=== PATIENT | male | born 1945 | race Caucasian/White ===

== ENCOUNTER → 2017-04-23 | Outpatient (CLI) | payer OTHER ==
[~2017-04-23] MED LIST: AZIT250T; CLX20; IBUP-1428; LISI-725; LOVA20TA4; PRLSR20; REVIEWED
--- NOTE | 2017-04-23 12:19 | DIAGNOSTIC IMAGING REPORT ---
L WRIST MIN 3 VIEWS ROUTINE CLINICAL HISTORY: JOINT PAIN pain COMPARISON: None. DISCUSSION: Moderate to rather significant degenerative change first to lesser extent second carpometacarpal joints. Normal bone mineralization. All remaining intercarpal regions are unremarkable. Soft tissue vascular clips are present in the distal forearm. There is no evidence for soft tissue swelling. IMPRESSION: Moderate to significant degenerative change of the first and to lesser extent second and third carpometacarpal joints. The above report was generated using voice recognition software. It may contain grammatical, syntax or spelling errors. Electronically signed by: Yogi Dubon M.D. 04/23/2017 12:17 PM Dictated Date/Time: 04/23/2017 12:16 PM
--- NOTE | 2017-04-23 12:20 | DIAGNOSTIC IMAGING REPORT ---
RIGHT HAND 3 VIEWS CLINICAL HISTORY: Right hand pain. FINDINGS: 3 views the right hand are obtained. No prior studies are available for comparison at the time of dictation. The skeletal structures are well mineralized for age. No fracture is seen. There is degenerative narrowing at the radiocarpal articulation. Mild osteoarthritic change is present the first carpometacarpal and metacarpophalangeal joints. Osteoarthritic change is also present involving the interphalangeal joints, distal greater than proximal. 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 Mild soft tissue swelling is present in the second finger. There is atherosclerotic calcification of the regional arteries. IMPRESSION: 1. No acute bony abnormality is identified in the right hand. 2. Arthritic change as above. Electronically signed by: Ascencion Lord M.D. 04/23/2017 12:19 PM Dictated Date/Time: 04/23/2017 12:18 PM
--- NOTE | 2017-04-23 12:20 | DIAGNOSTIC IMAGING REPORT ---
R WRIST MIN 3 VIEWS ROUTINE CLINICAL HISTORY: JOINT PAIN pain COMPARISON: None. DISCUSSION: Mild degenerative change first and to lesser extent second carpometacarpal joints. All remaining osseous structures are unremarkable. Soft tissue vascular calcifications are present. There is no evidence for soft tissue swelling. IMPRESSION: Moderate degenerative change first and to a lesser extent second carpometacarpal joint. Otherwise negative study. The above report was generated using voice recognition software. It may contain grammatical, syntax or spelling errors. Electronically signed by: Yogi Dubon M.D. 04/23/2017 12:19 PM Dictated Date/Time: 04/23/2017 12:18 PM
--- NOTE | 2017-04-23 12:23 | DIAGNOSTIC IMAGING REPORT ---
LEFT HAND 3 VIEWS CLINICAL HISTORY: Left hand pain. FINDINGS: 3 views the left hand are obtained. No prior studies are available for comparison at the time of dictation. The skeletal structures are well mineralized for age. No fracture is seen. There is degenerative narrowing at the radiocarpal articulation. Mild osteoarthritic change is present the first carpometacarpal and metacarpophalangeal joints. Osteoarthritic change is also present involving the interphalangeal joints, distal greater than proximal. Erosive osteoarthritis is noted in the second through fourth distal interphalangeal joints. Mild spurring seen from the second and third metacarpal heads. Mild soft tissue swelling is present in the second through fourth fingers. Surgical clips are noted adjacent to the distal radius. IMPRESSION: 1. No acute bony abnormality is identified in the left hand. 2. Arthritic change as above. Electronically signed by: Ascencion Lord M.D. 04/23/2017 12:21 PM Dictated Date/Time: 04/23/2017 12:19 PM
== END | disposition home or self-care (01) ==
LOC: C.RAD1850 12:00
PROVIDERS: ATTEND Family Medicine
DX: M25.50 Pain in unspecified joint (principal)

== ENCOUNTER → 2017-05-12 | Outpatient (CLI) | payer OTHER ==
--- NOTE | 2017-05-12 13:16 | DIAGNOSTIC IMAGING REPORT ---
CT LUNG SCREENING, LOW DOSE WITH COMPUTER-AIDED DETECTION (CAD) CLINICAL HISTORY: Smoking history. COMPARISON STUDY: No previous studies for comparison. CT DOSE: 75.95 mGycm TECHNIQUE: Low-dose helical CT was acquired without intravenous contrast from lung apices to bases and reconstructed at 2.5 mm every 2 mm. CAD was utilized for this study. A dose lowering technique was utilized adhering to the principles of ALARA. FINDINGS: The central airways are patent. No pleural effusions. No pneumothorax. Mild emphysema. Mild peripheral fibrotic change within the lung apices. Linear density within the right lung apex favors scarring. A 2 mm subpleural nodule within the left upper lobe on image 45. Focal nodular thickening within the left major fissure on image 79. This is of doubtful clinical significance. No suspicious pulmonary nodules. Poststernotomy changes. Old, healed left-sided rib fractures. No mediastinal or hilar lymphadenopathy. The heart is normal in size. The visualized liver and spleen are unremarkable. Normal caliber thoracic aorta. Nodule 1 Category: 2 Nodule 1 Status: Baseline Nodule 1 Description: Solid Nodule 1 Lesion ID: 1 Nodule 1 Slice Number: [id number] Nodule 1 Volume (mm3): 5 Nodule 1 Major [place] mm: 2.3 Nodule 1 Minor [place] mm: 2.0 IMPRESSION: 1. A 2 mm nodule within the left upper lobe. Please refer to the recommendations below for follow-up. CAD FINDINGS: Overall Lung RADS Category: 2 Lung RADS Management Recommendation: Continue annual lung cancer screening. Lung RADS Follow Up Date: 2018-05-12 Lung RADS Nodule ID: 1 Electronically signed by: Waylon Rodriguez M.D. 05/12/2017 1:15 PM Dictated Date/Time: 05/12/2017 1:08 PM
== END | disposition home or self-care (01) ==
LOC: C.CTS 12:28
PROVIDERS: ATTEND Family Medicine
DX: R91.8 Other nonspecific abnormal finding of lung field (principal); Z87.891 Personal history of nicotine dependence

== ENCOUNTER 2020-11-22 16:12 | Observation (INO) ==
--- NOTE | 2020-11-22 17:36 | Emergency Department Note ---
Impression & Plan Pneumonia due to 2019 novel coronavirus, Pleural effusion, Hypoxia ED Provider Note NAME: JENNIFER ROYAL AGE: 75 SEX: M : 1945 ARRIVES VIA: Walk-In INFORMANT: Patient, ED PROVIDER(S): Leroy Manley DO CHIEF COMPLAINT: Shortness of breath HPI: The patient is a 75-year-old male who presented to emergency room for an evaluation of shortness of breath. The patient describes cough and difficulty breathing. He states he had the symptoms for a few weeks. He does have a history of COPD. He was seen by his primary care physician and then sent to the emergency department for further evaluation and possible Covid testing. The patient has no fever. He denies having any lower extremity swelling or pain. He states that he has been compliant with all of his outpatient medication regimen. He did not receive a Covid vaccination. The patient states that he denies having any nausea or dizziness. He has had no syncope. The patient states his symptoms are mild to moderate at rest but worsen with exertion. ROS: See above HPI for pertinent positives & negatives. A total of 10 systems reviewed and were otherwise negative. PAST MEDICAL HISTORY: See Below PAST SURGICAL HISTORY: See Below FAMILY HISTORY: See Below SOCIAL HISTORY: See Below HOME MEDICATIONS: See Below ALLERGIES: See Below VITALS: See Below PHYSICAL EXAMINATION: GENERAL: Patient is awake alert in no acute distress patient is resting comfortably and showing no signs of anxiety EYES: The conjunctivae are clear. The pupils are round and reactive. EARS, NOSE, MOUTH AND THROAT: The nose is without any evidence of any deformity. Mucous membranes are moist. Tongue is midline. NECK: The neck is nontender and supple. RESPIRATORY: Diminished breath sounds are noted in the left lung field. There is no tachypnea or conversational dyspnea. CARDIOVASCULAR: Ectopy was noted to auscultation. No definite murmur was noted. GASTROINTESTINAL: The abdomen is soft. Abdomen is nontender. MUSCULOSKELETAL/EXTREMITIES: There is no evidence of gross deformity full range of motion is noted in the hips and shoulders. SKIN: There is no obvious evidence of any rash. There are no petechiae, pallor or cyanosis noted. NEUROLOGIC: Patient is awake alert and oriented x3. MEDICAL DECISION MAKING: The patient is a 75-year-old male who presented to the emergency department for an evaluation of difficulty breathing. The patient's had cough and difficulty breathing. Symptoms appear to have worsened over the course the last few days. The patient was found to have borderline hypoxia upon arrival. He was certainly having difficulty breathing with any exertion. I discussed the patient's laboratory and radiographic studies with him. He did have an elevated creatinine as well as an abnormal chest x-ray. His Covid swab was positive. I discussed his case with the on-call [facility] group. They have agreed to evaluate the patient in the emergency department for further management and disposition. Triage Nursing notes reviewed. Prior medical records reviewed Vital Signs: reviewed and remarkable for hypoxia Differential diagnosis: Reactive airway disease, pneumonia, pneumothorax, COPD, CHF, infections, cardiac ischemia, pulmonary embolism, musculoskeletal, gastrointestinal, as well as other pathologies. ER treatment provided: See below Diagnostics interpreted by me: ECG: EKG was obtained in the emergency department. My interpretation is sinus rhythm at 75 bpm. PVCs were noted. There was no acute ST segment abnormalities. This was compared to a tracing from May 13, 2020. The ectopy is new otherwise no specific changes were noted. Cardiac Monitoring: An order was placed for continuous cardiac monitoring. The monitor shows a rate of 78 bpm with sinus rhythm. Laboratory studies: As stated above and show below. Imaging studies: See below Consultation(s): I discussed this case with Dr. Block. He was on-call for the [facility] group. He will evaluate the patient in the emergency department for further management and disposition. Past Med/Surg History Medical History CAD in [place] artery History of hypertension PAD (peripheral artery disease) Surgical History History of coronary artery bypass graft Social History Smoking Status: Former smoker Cigarettes Per Day: 60; Preferred Language: Nigerian Feels Safe at Home: Yes Allergies Allergies Allergy/AdvReac Type Severity Reaction Status Date / Time Penicillins Allergy Severe PER PT Verified 11/22/20 17:56 ENDED UP IN HOSPITAL Home Meds Home Medications Medication Instructions Recorded Confirmed amlodipine 10 mg PO DAILY 11/22/20 11/22/20 aspirin 81 mg PO DAILY 11/22/20 11/22/20 atorvastatin 20 mg PO HS 11/22/20 11/22/20 cetirizine 10 mg PO DAILY 11/22/20 11/22/20 citalopram 10 mg PO DAILY 11/22/20 11/22/20 clopidogrel 75 mg PO DAILY 11/22/20 11/22/20 doxazosin 1 mg PO DAILY 11/22/20 11/22/20 doxycycline hyclate 100 mg PO BID 11/22/20 11/22/20 furosemide 20 mg PO DAILY 11/22/20 11/22/20 isosorbide mononitrate 30 mg PO DAILY 11/22/20 11/22/20 lisinopril 10 mg PO DAILY 11/22/20 11/22/20 omeprazole 20 mg PO DAILY 11/22/20 11/22/20 tamsulosin 0.4 mg PO DAILY 11/22/20 11/22/20 Results & Data (ED) Vital Signs Vital Signs - 24 hr 11/22/20 16:22 11/22/20 17:20 Temperature 36.4 C L 37.2 C Temperature Source Temporal Artery Scan Oral Pulse Rate 75 71 Pulse Rate [Apical] 79 Pulse Rhythm Regular Pulse Rhythm [Apical] Regular Pulse Strength [Apical] Normal Respiratory Rate 20 22 Respiratory Effort / Characteristics Non-Labored Spontaneous Respiratory Depth Normal Respiratory Pattern Regular Blood Pressure 132/61 Blood Pressure [Right Arm] 133/66 Blood Pressure Mean 84 Blood Pressure Mean [Right Arm] 88 Blood Pressure Position [Right Arm] Sitting Pulse Oximetry 90 93 Oxygen Delivery Method Room Air Room Air Sepsis Recent Fever Within 48 Hours No Sepsis New/Unexplained Change in Mental Status N/A Sepsis Action Taken by Nursing No Action Required Home Medications Current Medication List: was personally reviewed by me Laboratory Data Attestation: I reviewed the patient's lab results. Result diagrams: 11/22/20 17:35 11/22/20 17:35 Lab Results 11/22/20 11/22/20 11/22/20 Range/Units 17:35 17:35 17:35 WBC 3.17 L (4.8-10.8) K/uL RBC 4.37 L (4.7-6.1) M/uL Hgb 13.3 L (14.0-18.0) g/dL Hct 38.1 L (42-52) % MCV 87.2 (80-100) fL MCH 30.4 (25-34) pg MCHC 34.9 (32-36) g/dL RDW Std Deviation 45.5 (36.4-46.3) fL RDW Coeff of Shahab 14.2 (11.5-14.5) % Plt Count 123 L (130-400) K/uL MPV 11.8 H (7.4-10.4) fL Immature Gran % (Auto) 0.6 % Neut % (Auto) 59.4 % Lymph % (Auto) 20.2 % [place] % (Auto) 19.2 % Eos % (Auto) 0.3 % Baso % (Auto) 0.3 % Neut # (Auto) 1.88 (1.4-6.5) K/uL Lymph # (Auto) 0.64 L (1.2-3.4) K/uL [place] # (Auto) 0.61 H (0.11-0.59) K/uL Eos # (Auto) 0.01 (0-0.5) K/uL Baso # (Auto) 0.01 (0-0.2) K/uL Immature Gran # (Auto) 0.02 (0.00-0.02) K/uL Giant Platelets 1+ D-Dimer 1370 H* (0-500) ug/L FEU Sodium 135 L (136-145) mmol/L Potassium 4.1 (3.5-5.1) mmol/L Chloride 108 H (98-107) mmol/L Carbon Dioxide 17 L (21-32) mmol/L Anion Gap 10.0 (3-11) BUN 58 H (7-18) mg/dl Creatinine 2.20 H (0.6-1.4) mg/dl Est Cr Clr Drug Dosing 32.9 ml/min Est GFR ( Amer) 32.7 ml/min Est GFR (Non-Af Amer) 28.3 ml/min BUN/Creatinine Ratio 26.4 H (10-20) Glucose 104 H (70-99) mg/dl Calcium 8.1 L (8.5-10.1) mg/dl Magnesium 2.1 (1.8-2.4) mg/dl Total Bilirubin 0.5 (0.2-1) mg/dl AST 47 H (15-37) U/L ALT 35 (12-78) U/L Alkaline Phosphatase 49 (45-117) U/L Troponin I 0.029 (0-0.045) ng/ml Total Protein 7.6 (6.4-8.2) gm/dl Albumin 3.2 L (3.4-5.0) gm/dl Globulin 4.4 H (2.5-4.0) gm/dl Albumin/Globulin Ratio 0.7 L (0.9-2) Urine Color Urine Appearance (Clear) Urine pH (4.5-7.5) Ur Specific Exchange (1.000-1.030) Urine Protein (Negative) Urine Glucose (UA) (Negative) Urine Ketones (Negative) Urine Blood (Negative) Urine Nitrite (Negative) Urine Bilirubin (Negative) Urine Urobilinogen (Negative) Ur Leukocyte Esterase (Negative) Urine WBC (Auto) (0-5) /hpf Urine RBC (Auto) (0-4) /hpf U Hyaline Cast (Auto) (0-5) /lpf U Epithel Cells (Auto) (0-5) /lpf Urine Bacteria (Auto) (Negative) COVID-19 Eval Order SARS-CoV-2 (PCR) (Negative) 11/22/20 11/22/20 11/22/20 Range/Units 18:07 18:07 18:45 WBC (4.8-10.8) K/uL RBC (4.7-6.1) M/uL Hgb (14.0-18.0) g/dL Hct (42-52) % MCV (80-100) fL MCH (25-34) pg MCHC (32-36) g/dL RDW Std Deviation (36.4-46.3) fL RDW Coeff of Shahab (11.5-14.5) % Plt Count (130-400) K/uL MPV (7.4-10.4) fL Immature Gran % (Auto) % Neut % (Auto) % Lymph % (Auto) % [place] % (Auto) % Eos % (Auto) % Baso % (Auto) % Neut # (Auto) (1.4-6.5) K/uL Lymph # (Auto) (1.2-3.4) K/uL [place] # (Auto) (0.11-0.59) K/uL Eos # (Auto) (0-0.5) K/uL Baso # (Auto) (0-0.2) K/uL Immature Gran # (Auto) (0.00-0.02) K/uL [place] Platelets D-Dimer (0-500) ug/L FEU Sodium (136-145) mmol/L Potassium (3.5-5.1) mmol/L Chloride (98-107) mmol/L Carbon Dioxide (21-32) mmol/L Anion Gap (3-11) BUN (7-18) mg/dl Creatinine (0.6-1.4) mg/dl Est Cr Clr Drug Dosing ml/min Est GFR ( Amer) ml/min Est GFR (Non-Af Amer) ml/min BUN/Creatinine Ratio (10-20) Glucose (70-99) mg/dl Calcium (8.5-10.1) mg/dl Magnesium (1.8-2.4) mg/dl Total Bilirubin (0.2-1) mg/dl AST (15-37) U/L ALT (12-78) U/L Alkaline Phosphatase (45-117) U/L Troponin I (0-0.045) ng/ml Total Protein (6.4-8.2) gm/dl Albumin (3.4-5.0) gm/dl Globulin (2.5-4.0) gm/dl Albumin/Globulin Ratio (0.9-2) Urine Color Dark Yellow Urine Appearance Clear (Clear) Urine pH 5.0 (4.5-7.5) Ur Specific Exchange 1.016 (1.000-1.030) Urine Protein Trace H (Negative) Urine Glucose (UA) Negative (Negative) Urine Ketones Negative (Negative) Urine Blood Negative (Negative) Urine Nitrite Negative (Negative) Urine Bilirubin Negative (Negative) Urine Urobilinogen Negative (Negative) Ur Leukocyte Esterase Negative (Negative) Urine WBC (Auto) 1-5 (0-5) /hpf Urine RBC (Auto) 0-4 (0-4) /hpf U Hyaline Cast (Auto) 5-10 H (0-5) /lpf U Epithel Cells (Auto) 10-20 H (0-5) /lpf Urine Bacteria (Auto) Negative (Negative) COVID-19 Eval Order Covid19 at [facility] SARS-CoV-2 (PCR) POSITIVE A* (Negative) Imaging Data Radiologist's Impression: Chest X-Ray 11/22/20 17:33 XR chest 1V portable CLINICAL HISTORY: Dyspnea COMPARISON STUDY: Chest radiograph August 04, 2006. Chest CT May 12, 2017. FINDINGS: There are median sternotomy wires and mediastinal surgical clips. Note is made of cardiomegaly without evidence for pulmonary edema. There is pulmonary vascular congestion. There is an apparent left pleural effusion. There is a trace right pleural effusion. This exam is compromised by artifact. There is left basilar opacity. There is no pneumothorax. IMPRESSION: 1. Small left and trace right pleural effusions with associated bibasilar opac ities. Radiographic follow-up is recommended. 2. Cardiomegaly. Pulmonary vascular congestion without overt pulmonary edema. ACT 112: Negative or not required by law. Electronically signed by: Jeff Salinas M.D. 11/22/2020 7:04 PM Venous Doppler Study 11/22/20 18:45 US venous doppler LE BI CLINICAL HISTORY: SOB, elevated dimer, abnl creat COMPARISON STUDY: No previous studies for comparison. FINDINGS: Real-time and color flow Doppler imaging were performed. Flow was seen within the femoral, popliteal and calf veins with no intraluminal thrombus demonstrated. The saphenous vein is patent. IMPRESSION: No evidence of deep venous thrombosis. ACT 112: Negative or not required by law. The above report was generated using voice recognition software. It may contain grammatical, syntax or spelling errors. Electronically signed by: Michelle Torres DO 11/22/2020 8:07 PM Discharge Plan Visit Data Chief Complaint: Illness Stated Complaint: NAUSEA, JUST NOT FEELING WELL ED Provider: Leroy Manley Discharge Problem: Pneumonia due to 2019 novel coronavirus, Pleural effusion, Hypoxia Patient Disposition: Being Evaluated by Hospitalist Condition: Good Forms Stand Alone Forms: My [facility] Prescriptions Prescriptions: No Action atorvastatin 20 mg tablet 20 mg PO HS RF: 0 cetirizine 10 mg tablet 10 mg PO DAILY RF: 0 doxazosin 1 mg tablet 1 mg PO DAILY RF: 0 citalopram 10 mg tablet 10 mg PO DAILY RF: 0 clopidogrel 75 mg tablet 75 mg PO DAILY RF: 0 aspirin 81 mg tablet,delayed release (DR/EC) 81 mg PO DAILY RF: 0 isosorbide mononitrate 60 mg tablet extended release 24 hr 30 mg PO DAILY RF: 0 tamsulosin 0.4 mg capsule 0.4 mg PO DAILY RF: 0 amlodipine 10 mg tablet 10 mg PO DAILY RF: 0 lisinopril 10 mg tablet 10 mg PO DAILY RF: 0 omeprazole 20 mg capsule,delayed release(DR/EC) 20 mg PO DAILY RF: 0 furosemide 20 mg tablet 20 mg PO DAILY RF: 0 doxycycline hyclate 100 mg tablet 100 mg PO BID RF: 0 Referrals Referrals: PCP,NO [Primary Care Provider] -
[2020-11-22 18:07] LABS: Basophils # (auto) 0.01 K/uL (0-0.2); Basophils % (auto) 0.3 %; Eosinophils # (auto) 0.01 K/uL (0-0.5); Eosinophils % (auto) 0.3 %; Hematocrit (blood only) 38.1 % (42-52); Hemoglobin 13.3 g/dL (14.0-18.0); Immature Granulocytes # (auto) 0.02 K/uL (0.00-0.02); Immature Granulocytes % (auto) 0.6 %; Lymphocytes # (auto) 0.64 K/uL (1.2-3.4); Lymphocytes % (auto) 20.2 %; Mean Corpuscular Hemoglobin 30.4 pg (25-34); Mean Corpuscular Hgb Conc 34.9 g/dL (32-36); Mean Corpuscular Volume 87.2 fL (80-100); Mean Platelet Volume 11.8 fL (7.4-10.4); Monocytes # (auto) 0.61 K/uL (0.11-0.59); Monocytes % (auto) 19.2 %; Neutrophils # (auto) 1.88 K/uL (1.4-6.5); Neutrophils % (auto) 59.4 %; Platelet Count 123 K/uL (130-400); RDW Coefficient of Variation 14.2 % (11.5-14.5); RDW Standard Deviation 45.5 fL (36.4-46.3); Red Blood Count 4.37 M/uL (4.7-6.1); White Blood Count 3.17 K/uL (4.8-10.8)
[2020-11-22 18:16] LABS: Albumin Level 3.2 gm/dl (3.4-5.0); BUN Creatinine Ratio 26.4 (10-20); Calcium 8.1 mg/dl (8.5-10.1); Creatinine Clr Calc Pharmacy 32.9 ml/min; Est GFR (African American) 32.7 ml/min; Est GFR (Non-African American) 28.3 ml/min; Magnesium 2.1 mg/dl (1.8-2.4); Potassium 4.1 mmol/L (3.5-5.1)
[2020-11-22 18:21] LABS: Albumin Globulin Ratio 0.7 (0.9-2); Bilirubin,Total 0.5 mg/dl (0.2-1); Globulin 4.4 gm/dl (2.5-4.0); Total Protein 7.6 gm/dl (6.4-8.2); Troponin I 0.029 ng/ml (0-0.045)
[2020-11-22 18:26] LABS: D Dimer 1370 ug/L FEU (0-500)
[2020-11-22 18:33] LABS: Giant Platelets 1+
--- NOTE | 2020-11-22 19:05 | XRay Report ---
XR chest 1V portable CLINICAL HISTORY: Dyspnea COMPARISON STUDY: Chest radiograph August 04, 2006. Chest CT May 12, 2017. FINDINGS: There are median sternotomy wires and mediastinal surgical clips. Note is made of cardiomeg gonsalo without evidence for pulmonary edema. There is pulmonary vascular congestion. There is an apparen t left pleural effusion. There is a trace right pleural effusion. This exam is compromised by artifac t. There is left basilar opacity. There is no pneumothorax. IMPRESSION: 1. Small left and trace right pleural effusions with associated bibasilar opacities. Radiographic fol low-up is recommended. 2. Cardiomegaly. Pulmonary vascular congestion without overt pulmonary edema. ACT 112: Negative or not required by law. Electronically signed by: Jeff Salinas M.D. 11/22/2020 7:04 PM
[2020-11-22 19:18] LABS: Appearance Urine Clear (Clear); Bacteria Urine Automated Negative (Negative); Bilirubin Urine Negative (Negative); Blood Urine Negative (Negative); Color Urine Dark Yellow; Glucose Urine UA Negative (Negative); Ketones Urine Negative (Negative); Leukocyte Esterase Urine Negative (Negative); Nitrite Urine Negative (Negative); Protein Urine Trace (Negative); RBC Urine Automated 0-4 /hpf (0-4); Specific Gravity Urine 1.016 (1.000-1.030); Urobilinogen Urine Negative (Negative)
--- NOTE | 2020-11-22 20:08 | Ultrasound Report ---
US venous doppler LE BI CLINICAL HISTORY: SOB, elevated dimer, abnl creat COMPARISON STUDY: No previous studies for comparison. FINDINGS: Real-time and color flow Doppler imaging were performed. Flow was seen within the femoral, popliteal and calf veins with no intraluminal thrombus demonstrated. The saphenous vein is patent. IMPRESSION: No evidence of deep venous thrombosis. ACT 112: Negative or not required by law. The above report was generated using voice recognition software. It may contain grammatical, syntax o r spelling errors. Electronically signed by: Michelle Torres DO 11/22/2020 8:07 PM
[2020-11-22] MEDS ORDERED: dexAMETHasone**PF** 10 MG/ML VIAL IV ONE ×2 (20:24→22:45)
[2020-11-22] MEDS ORDERED: ALBUT/IPRATROP 3MG/0.5MG NEB 3 ML VIAL NEB STA (21:31)
[2020-11-22] MEDS ORDERED: SODIUM CHLORIDE 0.9% 1000ML 500 ML IV ONE (21:31)
--- NOTE | 2020-11-22 22:10 | History & Physical Report ---
Date of Service November 22, 2020 Assessment & Plan (1) Acute kidney injury superimposed on CKD: 75 yo M w/ extensive vascular hx in ER for dehydration, poor po intake found to have KULDIP on CKD and Covid pneumonia. KULDIP on CKD - last Cr in [facility] 11/2019 was 1.30, CrCl 56.05 - 2.20, 32.9 today - likely prerenal from dehydration and poor po intake - holding nephrotoxic medications; lisinopril/lasix - renal dose all medications - 500 cc NS bolus in ER; cont maint fluids on floor - monitor intake and output COVID19 Pneumonia - noted on CT imaging, COVID19 positive in ER. No vaccination hx. - O2 goal 92, oxygen PRN - received 10 mg iv decadron in ER, cont 6mg IV daily - not candidate for remdesivir/plasma - monitor CBC, CMP with leukopenia, AST elevation, borderline platelets - isolation precautions - unable to do CTA due to KULDIP. TTE ordered for AM to evaluate cardiac function + right heart strain. Can consider V/Q scan vs. CTA pending TTE and improved Cr. COPD - continue spiriva daily - duonebs QID - flutter valve + incentive spirometry - guaifensin, encourage taking deep breaths and walking in room ad brigitte - sputum culture Troponin leak - non-negative troponin of 0.029, repeating. - EKG sinus with 1st degree AV block + new PVCs - EKGs with CP Diarrhea - cc with doxycycline x 10 days. 3-4 watery BM/day - cdiff pending Chronic Medical Conditions CAD: cont statin, asa PAD: cont plavix HTN: holding lisinopril, lasix. cont isosorbide nitro, amlodipine BPH: Cont doxazosin, tamsulosin GERD: cont omeprazole Allergies: cont cetirizine, prn nasal steroid DVT ppx: heparin 7500 Q8 FEN/GI: NS @125, heart healthy, omeprazole Full Code Dispo: Med/Surg with Tele, d/c home pending renal improvement (2) Pneumonia due to 2019 novel coronavirus: (3) BPH (benign prostatic hyperplasia): (4) Asthma with COPD: (5) PAD (peripheral artery disease): (6) Hypercholesterolemia: (7) HLD (hyperlipidemia): (8) GERD (gastroesophageal reflux disease): History of Present Illness 75-year-old male with a past medical history of coronary artery disease status post CABG x3(1999), CKD stage III, GERD, hypertension, hypercholesterolemia, aortic stenosis, KAT, PAD s/p bilateral iliac artery stenting, asthma with COPD, agent orange exposure, BPH who presents to the emergency department after being evaluated at his primary care physician's office. History gathered from both patient and who is at bedside in the emergency department. She states that he has been having nasal congestion and cough for approximately the past month that they had attributed to allergies. Initially this was treated with intranasal steroids and some eakk-hby-cowytdi Mucinex. He was evaluated by his PCP Dr. Sanderson on November 02 at which time she initiated a 10-day course of doxycycline 100 mg twice daily. They both went to [facility] on November 08 as his had to have a heart catheterization procedure done. She states that after they came back both of them felt worse for the wear at that time. Over the last 5 days she notes that his coughing has gotten worse, he appears more lethargic and somewhat shaky while walking, has had dramatically decreased p.o. intake and appears to not be acting like himself. Charlie states that he has had this persistent cough with some sputum production but denies any shortness of breath at rest, laying down, with exertion. He states that he has had some diarrhea but that has mostly been attributed to the antibiotic. He denies any loss of smell or taste. He denies any chest pain. He says he does feel somewhat nauseous and has a loss of appetite. He denies any abdominal pain or episodes of vomiting. Denies any pain with urination or burning with urination. Neither Charlie nor his received the influenza vaccine or the Covid vaccines this year. Primary Care Provider: NO PCP Allergies Allergy/AdvReac Type Severity Reaction Status Date / Time Penicillins Allergy Severe PER PT Verified 11/22/20 17:56 ENDED UP IN HOSPITAL Home Medications Medication Instructions Recorded Confirmed Type amlodipine 10 mg PO DAILY 11/22/20 11/22/20 History aspirin 81 mg PO DAILY 11/22/20 11/22/20 History atorvastatin 20 mg PO HS 11/22/20 11/22/20 History cetirizine 10 mg PO DAILY 11/22/20 11/22/20 History citalopram 10 mg PO DAILY 11/22/20 11/22/20 History clopidogrel 75 mg PO DAILY 11/22/20 11/22/20 History doxazosin 1 mg PO DAILY 11/22/20 11/22/20 History doxycycline hyclate 100 mg PO BID 11/22/20 11/22/20 History furosemide 20 mg PO DAILY 11/22/20 11/22/20 History isosorbide mononitrate 30 mg PO DAILY 11/22/20 11/22/20 History lisinopril 10 mg PO DAILY 11/22/20 11/22/20 History omeprazole 20 mg PO DAILY 11/22/20 11/22/20 History tamsulosin 0.4 mg PO DAILY 11/22/20 11/22/20 History azithromycin [Zithromax] 250 mg PO DAILY 4 Days #4 tab 11/23/20 Rx dexamethasone [Decadron] 6 mg PO DAILY #8 tab 11/23/20 Rx tiotropium bromide [Spiriva with 1 cap INHALATION DAILY #30 inh 11/23/20 Rx HandiHaler] Past Med/Surg History Medical History (Updated 11/23/20 @ 18:49 by Smooth Brito DO) Agent orange exposure Allergic rhinitis CAD in [place] artery Claudication Herniated nucleus pulposus s/p surgical repair History of hypertension Left lumbar radiculopathy PAD (peripheral artery disease) Pulmonary nodule 2mm nodule , left upper lobe, 05/12/2017 Surgical History (Updated 11/22/20 @ 22:08 by Maricruz Cisneros MD) H/O endarterectomy 12/12/[place] [facility] [place] History of coronary artery bypass graft x3, ALMENDAREZ to LAD, left radial graft to obtuse marginal, and saphenous vein graft to posterior descending. 1999, [facility] [place] Boyle S/P insertion of iliac artery stent BL, 12/14/2017, [facility] [place] Bryant Family History (Updated 11/22/20 @ 22:09 by Maricruz Cisneros MD) Son Sudden Other Heart disease Hypertension Lung cancer Stroke Social History Smoking Status: Former smoker Cigarettes Per Day: 60; Second Hand Exposure: No; Do You Dip or Chew Tobacco: No; Tobacco Cessation Education Requested by Patient: No Hx Alcohol Use: Yes Alcohol type: hard liquor Hx Substance Use: No Preferred Language: Maltese Communication Ability: Effective Sap Abap Programmer Required: No Beliefs That Will Affect Care: None Current Living Situation: Spouse Other Information That Helps Us Care for You: No Feels Safe at Home: Yes Safety Concerns: Feels Safe At This Time Assistive Devices: None Review of Systems Constitutional: no fever, no chills, no sweats and no fatigue Eyes: no blind spots and no discharge Ear, Nose, Mouth, Throat: no hearing loss and no nasal congestion Respiratory: + cough; no dyspnea Cardiovascular: no chest pain, no dyspnea on exertion and no edema Gastrointestinal: + early satiety, + nausea and + diarrhea/loose stools; no abdominal pain, no vomiting, no constipation and no blood in stools Musculoskeletal: no joint pain and no myalgia Neurologic: no tingling, no numbness and no headache(s) Endocrine: no fatigue Physical Exam Physical Exam: Constitutional: obese male laying in bed, gently wheezing Eyes: EOMI, pupils equal and reactive bilaterally, no scleral icterus Cardiac: RRR, no murmurs, gallops or rubs. Normal S1, S2 Pulm: inspiratory and expiratory wheezing bilaterally, poor inspiration at bases, coughing, mild atelectatic crackles bases after deep inspiration Abd: soft, distended, nontender, normal bowel sounds, no rebound or guarding Extremities: 2+ peripheral pulses, no edema Neuro: no focal deficits, moving all 4 limbs, A&Ox3 Results & Data Results & Data ([facility]) Vital Signs (Past 12 Hours) Vital Signs Temp Pulse Pulse Resp BP BP Pulse Ox 11/22/20 17:20 37.2 C 71 79 22 133/66 93 11/22/20 16:22 36.4 C L 75 20 132/61 90 Laboratory Results WBC 3.17 K/uL (4.8-10.8) L 11/22/20 17:35 RBC 4.37 M/uL (4.7-6.1) L 11/22/20 17:35 Hgb 13.3 g/dL (14.0-18.0) L 11/22/20 17:35 Hct 38.1 % (42-52) L 11/22/20 17:35 MCV 87.2 fL (80-100) 11/22/20 17:35 MCH 30.4 pg (25-34) 11/22/20 17:35 MCHC 34.9 g/dL (32-36) 11/22/20 17:35 RDW Std Deviation 45.5 fL (36.4-46.3) 11/22/20 17:35 RDW Coeff of Shahab 14.2 % (11.5-14.5) 11/22/20 17:35 Plt Count 123 K/uL (130-400) L 11/22/20 17:35 MPV 11.8 fL (7.4-10.4) H 11/22/20 17:35 Immature Gran % (Auto) 0.6 % 11/22/20 17:35 Neut % (Auto) 59.4 % 11/22/20 17:35 Lymph % (Auto) 20.2 % 11/22/20 17:35 Ada % (Auto) 19.2 % 11/22/20 17:35 Eos % (Auto) 0.3 % 11/22/20 17:35 Baso % (Auto) 0.3 % 11/22/20 17:35 Neut # (Auto) 1.88 K/uL (1.4-6.5) 11/22/20 17:35 Lymph # (Auto) 0.64 K/uL (1.2-3.4) L 11/22/20 17:35 Ada # (Auto) 0.61 K/uL (0.11-0.59) H 11/22/20 17:35 Eos # (Auto) 0.01 K/uL (0-0.5) 11/22/20 17:35 Baso # (Auto) 0.01 K/uL (0-0.2) 11/22/20 17:35 Immature Gran # (Auto) 0.02 K/uL (0.00-0.02) 11/22/20 17:35 Giant Platelets 1+ 11/22/20 17:35 D-Dimer 1370 ug/L FEU (0-500) H* 11/22/20 17:35 Sodium 135 mmol/L (136-145) L 11/22/20 17:35 Potassium 4.1 mmol/L (3.5-5.1) 11/22/20 17:35 Chloride 108 mmol/L (98-107) H 11/22/20 17:35 Carbon Dioxide 17 mmol/L (21-32) L 11/22/20 17:35 Anion Gap 10.0 (3-11) 11/22/20 17:35 BUN 58 mg/dl (7-18) H 11/22/20 17:35 Creatinine 2.20 mg/dl (0.6-1.4) H 11/22/20 17:35 Est Cr Clr Drug Dosing 32.9 ml/min 11/22/20 17:35 Est GFR ( Amer) 32.7 ml/min 11/22/20 17:35 Est GFR (Non-Af Amer) 28.3 ml/min 11/22/20 17:35 BUN/Creatinine Ratio 26.4 (10-20) H 11/22/20 17:35 Glucose 104 mg/dl (70-99) H 11/22/20 17:35 Calcium 8.1 mg/dl (8.5-10.1) L 11/22/20 17:35 Magnesium 2.1 mg/dl (1.8-2.4) 11/22/20 17:35 Total Bilirubin 0.5 mg/dl (0.2-1) 11/22/20 17:35 AST 47 U/L (15-37) H 11/22/20 17:35 ALT 35 U/L (12-78) 11/22/20 17:35 Alkaline Phosphatase 49 U/L (45-117) 11/22/20 17:35 Troponin I 0.029 ng/ml (0-0.045) 11/22/20 17:35 Total Protein 7.6 gm/dl (6.4-8.2) 11/22/20 17:35 Albumin 3.2 gm/dl (3.4-5.0) L 11/22/20 17:35 Globulin 4.4 gm/dl (2.5-4.0) H 11/22/20 17:35 Albumin/Globulin Ratio 0.7 (0.9-2) L 11/22/20 17:35 Urine Color Dark Yellow 11/22/20 18:45 Urine Appearance Clear (Clear) 11/22/20 18:45 Urine pH 5.0 (4.5-7.5) 11/22/20 18:45 Ur Specific [place] 1.016 (1.000-1.030) 11/22/20 18:45 Urine Protein Trace (Negative) H 11/22/20 18:45 Urine Glucose (UA) Negative (Negative) 11/22/20 18:45 Urine Ketones Negative (Negative) 11/22/20 18:45 Urine Blood Negative (Negative) 11/22/20 18:45 Urine Nitrite Negative (Negative) 11/22/20 18:45 Urine Bilirubin Negative (Negative) 11/22/20 18:45 Urine Urobilinogen Negative (Negative) 11/22/20 18:45 Ur Leukocyte Esterase Negative (Negative) 11/22/20 18:45 Urine WBC (Auto) 1-5 /hpf (0-5) 11/22/20 18:45 Urine RBC (Auto) 0-4 /hpf (0-4) 11/22/20 18:45 U Hyaline Cast (Auto) 5-10 /lpf (0-5) H 11/22/20 18:45 U Epithel Cells (Auto) 10-20 /lpf (0-5) H 11/22/20 18:45 Urine Bacteria (Auto) Negative (Negative) 11/22/20 18:45 COVID-19 Eval Order Covid19 at [facility] 11/22/20 18:07 SARS-CoV-2 (PCR) POSITIVE (Negative) A* 11/22/20 18:07 Impressions Chest X-Ray 11/22/20 17:33 XR chest 1V portable CLINICAL HISTORY: Dyspnea COMPARISON STUDY: Chest radiograph August 04, 2006. Chest CT May 12, 2017. FINDINGS: There are median sternotomy wires and mediastinal surgical clips. Note is made of cardiomegaly without evidence for pulmonary edema. There is pulmonary vascular congestion. There is an apparent left pleural effusion. There is a trace right pleural effusion. This exam is compromised by artifact. There is left basilar opacity. There is no pneumothorax. IMPRESSION: 1. Small left and trace right pleural effusions with associated bibasilar opacities. Radiographic follow-up is recommended. 2. Cardiomegaly. Pulmonary vascular congestion without overt pulmonary edema. ACT 112: Negative or not required by law. Electronically signed by: Jeff Salinas M.D. 11/22/2020 7:04 PM Venous Doppler Study 11/22/20 18:45 US venous doppler LE BI CLINICAL HISTORY: SOB, elevated dimer, abnl creat COMPARISON STUDY: No previous studies for comparison. FINDINGS: Real-time and color flow Doppler imaging were performed. Flow was seen within the femoral, popliteal and calf veins with no intraluminal thrombus demonstrated. The saphenous vein is patent. IMPRESSION: No evidence of deep venous thrombosis. ACT 112: Negative or not required by law. The above report was generated using voice recognition software. It may contain grammatical, syntax or spelling errors. Electronically signed by: Michelle Torres DO 11/22/2020 8:07 PM CTA wo Con - statrad-: previous sternotomy and CABG. coronary artery atheros clerosis. no pericardial effusion. thoracic aorta and main pulmonary artery are normal in caliber. small sliding-type hiatal hernia. patchy bilateral ground- glass opacities consistent with viral pneumonia. no pleural effusion or pneumothorax. no acute osseous findings. Code Status & VTE Plan VTE Prophylaxis Plan VTE Prophylaxis will be ordered: Yes Supervising Physician Co-Signing Physician Notes Attending addendum: I have physically seen this patient, have supervised the medical residents activities, and agree with the H&P unless as otherwise noted. Assessment and Plan: KULDIP on CKD- Creatinine upon admission 2.20 and creatinine clearance 32.9, with baseline 1.30 and creatinine clearance 56.05 Secondary to dehydration and poor oral intake Hold lisinopril and Lasix continue with IV fluid rehydration Repeat laboratories in a.m. COVID-19 pneumonia/COPD- Pulse ox 90% on room air Isolation precautions Duonebs every 4 hours while awake and every 2 hours when necessary. Zinc sulfate turn 20 mg p.o. daily Vitamin D 5000 international units p.o. daily Order CT angiography for PE protocol in a.m. if KULDIP resolved. Otherwise, order VQ scan due to positive D-dimer of 1370 to assess for PE Standard COVID-19 Lovenox orders Continue Spiriva Remaining orders and notations as noted Resident Activity Tracking Resident Involvement: Resident Care Provided Care Provided: Adult Hospital Medicine
[2020-11-22] MEDS ORDERED: dexAMETHasone 10 MG in SYRINGE 0 ML IV SCH (22:45)
[2020-11-23] MEDS ORDERED: GLUCOSE 10 TABS/TUBE PO PRN (01:03)
[2020-11-23] MEDS ORDERED: MAGNESIUM HYDROXIDE SUSP 30 ML UDC PO PRN (01:03)
[2020-11-23] MEDS ORDERED: CARBOHYDRATES FOR HYPOGLYCEMIA PO PRN (01:03)
[2020-11-23] MEDS ORDERED: FLUTICASONE PROPIONATE NA SPR 16 GM BTL PRN (01:03)
[2020-11-23] MEDS ORDERED: ACETAMINOPHEN 325 MG TAB PO PRN (01:03)
[2020-11-23] MEDS ORDERED: GLUCAGON FOR INJ 1 MG VIAL SQ PRN (01:03)
[2020-11-23] MEDS ORDERED: DEXTROSE 50% 50 ML SYRINGE IV PRN (01:03)
[2020-11-23] MEDS ORDERED: ONDANSETRON INJ 2 MG/ML 2 ML VIAL IV PRN (01:03)
[2020-11-23] MEDS ORDERED: GLUCOSE 40% GEL 15 GM TUBE PO PRN (01:03)
[2020-11-23] MEDS ORDERED: NITROGLYCERIN SL 0.4 MG/TAB TAB SL PRN (01:03)
[2020-11-23] MEDS: HEPARIN SOD 5,000 UNIT/0.5 ML VIAL SQ SCH ×3 (02:13→12:38)
[2020-11-23] MEDS: SODIUM CHLORIDE 0.9% 1000ML 1,000 ML IV SCH ×2 (02:17→10:32)
--- NOTE | 2020-11-23 07:33 | CT Scan Report ---
CT chest diagnostic wo con CT DOSE: 679.32 mGy.cm HISTORY: Shortness of breath. Covid positive. TECHNIQUE: Multiaxial CT images of the chest were performed without contrast. A dose lowering techni que was utilized adhering to the principles of ALARA. COMPARISON: CT lung screening 05/12/2017. FINDINGS: Respiratory motion artifact. The central airways appear patent. No pleural effusions. No pn eumothorax. A few scattered groundglass airspace opacities within the lungs consistent with a viral p neumonia. Punctate calcified granuloma within the right lung apex. Focal area of reticulonodular thic kening within the right lung apex remain stable and likely represents scarring. Stable 5 mm subpleura l nodular density along left major fissure. This is likely benign in the long-term stability. Postste rnotomy changes. No suspicious lytic or blastic osseous lesions. No mediastinal hilar lymphadenopathy . The heart is mildly enlarged. There is a small hiatus hernia. Limited views of the upper abdomen de monstrate a normal liver, spleen, and adrenal glands. Normal esophagus. Normal caliber thoracic aorta . No pericardial effusion. IMPRESSION: A few scattered groundglass airspace opacities within the lungs consistent with a mild viral pneumoni a. ACT 112: Negative or not required by law. Electronically signed by: Waylon Rodriguez M.D. 11/23/2020 7:32 AM
[2020-11-23 07:36] LABS: Hematocrit (blood only) 34.7 % (42-52); Hemoglobin 11.9 g/dL (14.0-18.0); Mean Corpuscular Hemoglobin 30.1 pg (25-34); Mean Corpuscular Hgb Conc 34.3 g/dL (32-36); Mean Corpuscular Volume 87.6 fL (80-100); Mean Platelet Volume 11.8 fL (7.4-10.4); Platelet Count 119 K/uL (130-400); RDW Coefficient of Variation 14.2 % (11.5-14.5); Red Blood Count 3.96 M/uL (4.7-6.1); White Blood Count 1.72 K/uL (4.8-10.8)
[2020-11-23] MEDS: ALBUT/IPRATROP 3MG/0.5MG NEB 3 ML VIAL NEB SCH ×2 (07:39→11:12)
[2020-11-23 07:57] LABS: Basophils # (auto) 0.01 K/uL (0-0.2); Basophils % (auto) 0.6 %; Echinocytes 1+; Immature Granulocytes # (auto) 0.01 K/uL (0.00-0.02); Immature Granulocytes % (auto) 0.6 %; Lymphocytes % (auto) 23.3 %; Monocytes # (auto) 0.16 K/uL (0.11-0.59); Monocytes % (auto) 9.3 %; Neutrophils # (auto) 1.14 K/uL (1.4-6.5); Neutrophils % (auto) 66.2 %
[2020-11-23 08:20] LABS: Albumin Level 2.8 gm/dl (3.4-5.0); BUN Creatinine Ratio 30.4 (10-20); Calcium 8.3 mg/dl (8.5-10.1); Creatinine Clr Calc Pharmacy 36.6 ml/min; Est GFR (Non-African American) 31.9 ml/min; Magnesium 1.9 mg/dl (1.8-2.4); Potassium 4.3 mmol/L (3.5-5.1)
[2020-11-23 08:22] LABS: Albumin Globulin Ratio 0.7 (0.9-2); Bilirubin,Total 0.4 mg/dl (0.2-1); Phosphorus 3.2 mg/dl (2.5-4.9); Total Protein 6.8 gm/dl (6.4-8.2)
[2020-11-23] MEDS ORDERED: AZITHROMYCIN 250 MG TAB PO ONE (08:33)
[2020-11-23] MEDS ORDERED: PANTOprazole 40 MG TAB PO SCH (09:00)
[2020-11-23] MEDS ORDERED: DOXAZOSIN MESYLATE 1 MG TAB PO SCH (09:00)
[2020-11-23] MEDS ORDERED: ISOSORBIDE MONO EXTENDED REL 30 MG TABCR PO SCH (09:00)
[2020-11-23] MEDS ORDERED: ASPIRIN 81 MG ECTAB PO SCH (09:00)
[2020-11-23] MEDS ORDERED: CETIRIZINE HCL 10 MG TABLET PO SCH (09:00)
[2020-11-23] MEDS ORDERED: amLODIPine BESYLATE 5 MG TAB PO SCH (09:00)
[2020-11-23] MEDS ORDERED: TAMSULOSIN HCL 0.4 MG CAP PO SCH (09:00)
[2020-11-23] MEDS ORDERED: POLYETHYLENE (MIRALAX) 17 GM PACK PO SCH (09:00)
[2020-11-23] MEDS ORDERED: dexAMETHasone 6 MG in SYRINGE 0 ML IV SCH (09:00)
[2020-11-23] MEDS ORDERED: guaiFENesin 600 MG TABCR PO SCH (09:00)
[2020-11-23] MEDS ORDERED: CLOPIDOGREL BISULFATE 75 MG TAB PO SCH (09:00)
[2020-11-23] MEDS ORDERED: CITALOPRAM 40 MG TAB PO SCH (09:00)
[2020-11-23 09:08] LABS: Estimated Average Glucose 140 mg/dl; Hemoglobin A1C 6.5 % (4.5-5.6)
[2020-11-23] MEDS: INSULIN ASPART 100 UNITS/ML 3 ML PEN SC SCH ×2 (10:32→12:53)
--- NOTE | 2020-11-23 15:33 | Electrocardiogram Report ---
Test Reason : Blood Pressure : / mmHG Vent. Rate : 075 BPM Atrial Rate : 075 BPM P-R Int : 226 ms QRS Dur : 104 ms QT Int : 386 ms P-R-T Axes : 058 042 008 degrees QTc Int : 431 ms Sinus rhythm with 1st degree A-V block with occasional Premature ventricular complexes Otherwise normal ECG When compared with ECG of 13-MAY-2000 06:12, Premature ventricular complexes are now Present [place] interval has increased Confirmed by Leroy Cole ([id number]) on 11/23/2020 3:33:17 PM Referred By: REFERRED SELF Confirmed By:Leroy Cole
--- NOTE | 2020-11-23 18:51 | Discharge Summary ---
Date of Service November 23, 2020 Principal Diagnosis Covid pneumonia, COPD exacerbation Discharge Exam In general he is awake and alert pleasant no distress. HEENT normocephalic atraumatic mucous membranes moist. Lungs are diminished throughout although no rales rhonchi or wheezes no accessory muscle use good effort. Skin shows no rashes no pallor or icterus. No focal neuro deficits. Discharge Data Allergies Allergy/AdvReac Type Severity Reaction Status Date / Time Penicillins Allergy Severe PER PT Verified 11/22/20 17:56 ENDED UP IN HOSPITAL Consultations 11/22/20 20:24 ED Decision to Admit Stat Ordered Studies 11/22/20 18:45 US venous doppler LE BI Stat 11/22/20 20:24 CT chest diagnostic wo con Urgent Hospital Course (1) Pneumonia due to 2019 novel coronavirus: Fortunately stable on room air, breathing unlabored, appears stable for home. I will finish her course of Decadron, and otherwise manage in line with his concomitant COPD exacerbation Pancytopenia noted, leukopenia and thrombocytopenia consistent with Covid. Anemia for outpatient follow-up. Outpatient CBC with his follow-up lab work (2) Asthma with COPD: Decadron, course of Zithromax for pulmonary anti-inflammatory effect. Add Spiriva for anticholinergic to his baseline regimen (3) Stage 3b chronic kidney disease: Not yet back at baselinep.o. intake, repeat labs as soon as is feasible next week or the following (4) Acute kidney injury superimposed on CKD: Related to Covid pneumonia, is improved with IV fluids, is eating and drinking wellsafe/stable for homeencourage 60 to 70 ounces of p.o. fluids daily. Repeat basic metabolic panel in a week or 2 contingent on Covid isolation policies for getting lab work done (5) CAD in [place] artery: Clinically stable Total Time Total Time Spent Total Time Spent (In Minutes): Greater than 30 Discharge Plan Discharge Items Patient Disposition: Home - Self-Care Reason For Visit: COUGH,PNA Discharge Diagnosis: COVID pneumonia Condition on Discharge: Good Activity: Resume your previous activity Non-emergency contact: Primary Care Provider Call non-emergency contact if: you have any medication questions and your symptoms worsen Follow-up/Referrals: PCP,NO [Primary Care Provider] - Diet: Regular Addtl Attending Provider Instructions: COVID pneumonia, COPD exacerbation -Fortunately you are doing quite well with the Covid pneumonia and it appears safe for you to go home -Frequently any type of lung infection can flareup COPDtherefore we are managing as such -To help reduce lung inflammation we will finish out the course of Decadron (dexamethasone)6 mg once a day for another 8 days. Your next dose will be tomorrow. Because steroids can make people feel "hungry and hyper" I would recommend taking it fairly early in the day -Not because of any bacterial infection, but more because of a lung "anti- inflammatory effect" that we do not really get from any other medicines, we will also finish out a course of Zithromax (azithromycin)250 mg once a day for 4 more daysstarting tomorrow as well -As it relates to her COPD in general, usually we have 3 classes of inhalers that we used to treat COPD as a maintenance inhaler. Your Symbicort has 2 of those, but often the class of inhalers called "anticholinergics" will really show a good benefit for people with COPD. To this and we have sent a prescription for Spirivait would be a once a day every day inhalerto add to your Symbicort. If you run into any coverage issues, please have them call us, as there are several other medicines in that class. I usually just go with the Spiriva because most of the time it is what is covered. dehydration -As is often the case with infections, you also got a bit dehydratedyour creatinine had bumped as high as 2.2, and is now down to 1.99. It looks like your baseline is around 1.5-1.6. Given that you are eating and drinking well, it is quite safe for you to go home. As long as you are taking in a good 60 to 70 ounces of fluid a day I would expect your creatinine to continue to improve back to your baseline. I would have you skip your Lasix for the weekend, resuming it Thursday, just to give your kidneys a little bit more time to wake up. -We would ask that Dr. Rice checks lab work sometime next week if possible, and if Covid quarantine protocols do not allow for it, early the following week would be okay as well. She would be checking a basic metabolic panel to follow- up on your kidney function, as well as a CBC to follow-up on the blood count abnormalities we usually see with Covid. Take it easy, and as we discussed, it often takes a long time to truly get better from a pneumonia. Set a "finish line" around 30 December for when you could expect to hopefully feel back to "good as new"that is not to say it will take that long to get there, but if it does, follow your progress. If you are seeing slow but steady improvement that is okay. Should you feel any worsening or backsliding, obviously we would want you evaluated right away. Pending Studies at Discharge: No Stand-Alone Forms: [facility], Smoking Cessation Medications and DC Order Prescriptions: New dexamethasone [Decadron] 6 mg tablet 6 mg PO DAILY Qty: 8 RF: 0 Spiriva with HandiHaler 18 mcg capsule, w/inhalation device 1 cap inhalation DAILY Qty: 30 RF: 0 azithromycin [Zithromax] 250 mg tablet 250 mg PO DAILY 4 Days Qty: 4 RF: 0 Continued atorvastatin 20 mg tablet 20 mg PO HS RF: 0 cetirizine 10 mg tablet 10 mg PO DAILY RF: 0 doxazosin 1 mg tablet 1 mg PO DAILY RF: 0 citalopram 10 mg tablet 10 mg PO DAILY RF: 0 clopidogrel 75 mg tablet 75 mg PO DAILY RF: 0 aspirin 81 mg tablet,delayed release (DR/EC) 81 mg PO DAILY RF: 0 isosorbide mononitrate 60 mg tablet extended release 24 hr 30 mg PO DAILY RF: 0 tamsulosin 0.4 mg capsule 0.4 mg PO DAILY RF: 0 amlodipine 10 mg tablet 10 mg PO DAILY RF: 0 lisinopril 10 mg tablet 10 mg PO DAILY RF: 0 omeprazole 20 mg capsule,delayed release(DR/EC) 20 mg PO DAILY RF: 0 furosemide 20 mg tablet 20 mg PO DAILY RF: 0 doxycycline hyclate 100 mg tablet 100 mg PO BID RF: 0 Discharge Orders: Discharge Order (Routine); Ordered 11/23/20 Ordered By: Smooth Brito Admission Data Admit Date/Time: 11/22/20 21:35 Attending Provider: Smooth Brito Admit Provider: Mraicruz Cisneros Primary Care Provider: PCP,NO Other Providers: Carter Shaw Other Interventions: Discharge Summary Assessment (RN) Last Done: 11/23/20 13:13 Coding Level of Care Code D/C Day Management >30 mins Diagnoses Pneumonia due to 2019 novel coronavirus U07.1; J12.82 Asthma with COPD J44.9 Stage 3b chronic kidney disease N18.32 Acute kidney injury superimposed on CKD N17.9; N18.9 CAD in [place] artery I25.10
[2020-11-23] MEDS ORDERED: ATORVASTATIN 20 MG TAB PO SCH (21:00)
--- NOTE | 2020-11-23 22:26 | Billing Data ---
Date of Service November 23, 2020 Coding Level of Care Code 57965 Initial Inpt Care Lvl 3
[2020-11-24] MEDS ORDERED: dexAMETHasone 6 MG in SYRINGE 0 ML IV SCH (09:00)
[2020-11-24] MEDS ORDERED: AZITHROMYCIN 250 MG TAB PO SCH (09:00)
== END 2020-11-23 15:50 | disposition home or self-care (01) ==
LOC: ED 16:12 → INTOOBSV 21:35 → 2N 21:35 → SUATTDRO 21:35 → 2N 11-23 02:09

== ENCOUNTER 2020-11-29 14:30 | Inpatient (IN) ==
[~2020-11-29 14:30] MED LIST changes: -AZIT250T; -CLX20; +ETOMIDATE 2 MG/ML 20 ML VIAL IV ONE; -IBUP-1428; -LISI-725; -LOVA20TA4; -PRLSR20; -REVIEWED; +SUCCINYLCHOLINE CHLORIDE 20 MG/ML 10 ML VIAL IV ONE
[2020-11-29] MEDS ORDERED: DEXAMETHASONE SOD INJ 4 MG/ML VIAL ONE (14:48)
[2020-11-29] MEDS ORDERED: dexAMETHasone 6 MG in SYRINGE 0 ML IV ONE (14:54)
[2020-11-29 15:07] LABS: Basophils # (auto) 0.02 K/uL (0-0.2); Basophils % (auto) 0.2 %; Hemoglobin 14.7 g/dL (14.0-18.0); Immature Granulocytes # (auto) 0.14 K/uL (0.00-0.02); Immature Granulocytes % (auto) 1.1 %; Lymphocytes # (auto) 0.47 K/uL (1.2-3.4); Lymphocytes % (auto) 3.7 %; Mean Corpuscular Hemoglobin 30.2 pg (25-34); Mean Corpuscular Hgb Conc 34.2 g/dL (32-36); Mean Corpuscular Volume 88.3 fL (80-100); Mean Platelet Volume 12.1 fL (7.4-10.4); Monocytes # (auto) 0.84 K/uL (0.11-0.59); Monocytes % (auto) 6.6 %; Neutrophils # (auto) 11.35 K/uL (1.4-6.5); Neutrophils % (auto) 88.4 %; Platelet Count 186 K/uL (130-400); RDW Coefficient of Variation 14.2 % (11.5-14.5); RDW Standard Deviation 45.9 fL (36.4-46.3); Red Blood Count 4.87 M/uL (4.7-6.1); White Blood Count 12.82 K/uL (4.8-10.8)
[2020-11-29 15:21] LABS: Partial Thromboplastin Ratio 0.8; Partial Thromboplastin Time 21.5 Seconds (21.0-31.0); Prothrombin Time 10.5 Seconds (9.0-12.0)
[2020-11-29 15:24] LABS: iSTAT Creatinine 1.7 mg/dl (0.6-1.3); iSTAT Ionized Calcium 1.2 mmol/l (1.12-1.32); iSTAT Potassium 3.9 mmol/L (3.3-5.0)
[2020-11-29 15:25] LABS: Base Excess ABG -3.9 mEq/L (-9-1.8); HCO3 ABG 17 mmol/L (19-24); Oxygen Saturation ABG 91.2 % (90-95); PCO2 ABG 24 mmHg (35-46); PO2 ABG 57 mmHg (80-95); pH ABG 7.49 (7.35-7.45)
[2020-11-29 15:28] LABS: Allen Test POS (Pos)
[2020-11-29 15:28] LABS: Alanine Aminotransferase 39 U/L (12-78); Albumin Level 2.8 gm/dl (3.4-5.0); Aspartate Aminotransferase 22 U/L (15-37); BUN Creatinine Ratio 23.1 (10-20); Blood Urea Nitrogen 37 mg/dl (7-18); Calcium 8.6 mg/dl (8.5-10.1); Carbon Dioxide 21 mmol/L (21-32); Chloride 113 mmol/L (98-107); Est GFR (African American) 47.4 ml/min; Est GFR (Non-African American) 40.9 ml/min; Glucose 154 mg/dl (70-99); Magnesium 2.4 mg/dl (1.8-2.4); Potassium 3.9 mmol/L (3.5-5.1); Sodium 143 mmol/L (136-145)
[2020-11-29 15:33] LABS: Albumin Globulin Ratio 0.5 (0.9-2); Alkaline Phosphatase 63 U/L (45-117); Bilirubin,Total 0.7 mg/dl (0.2-1); Total Protein 8.8 gm/dl (6.4-8.2); Troponin I < 0.015 ng/ml (0-0.045)
--- NOTE | 2020-11-29 15:57 | XRay Report ---
SINGLE VIEW CHEST CLINICAL HISTORY: Sepsis. Covid. FINDINGS: An AP, portable, upright chest radiograph is compared to chest x-ray and chest CT dated 10/28. The examination is degraded by portable technique, apical lordotic positioning, and patient r otation. The patient is status post midline sternotomy. The heart is enlarged noting atherosclerotic calcification of the thoracic aorta. There is pulmonary vascular congestion. Multifocal airspace cons olidation has significantly progressed as compared to 11/22/2020. Suspect trace pleural effusions. No pneumothorax is seen. The skeletal structures are osteopenic. The bony thorax is grossly intact. IMPRESSION: 1. Multifocal airspace consolidation throughout both lungs has significantly increased as compared to 11/22/2020 and is consistent with the reported history of a viral pneumonia. Follow-up to resolution is recommended. 2. Cardiomegaly with pulmonary vascular congestion. 3. Suspect small pleural effusions. ACT 112: Negative or not required by law. Electronically signed by: Ascencion Lord M.D. 11/29/2020 3:56 PM
--- NOTE | 2020-11-29 16:57 | History & Physical Report ---
Date of Service November 29, 2020 Assessment & Plan (1) Pneumonia due to COVID-19 virus: 75 yo M w/ extensive vascular hx in ER for acute dyspnea and hypoxia, poor po intake, found to have worsening COVID pneumonia. Worsening COVID19 Pneumonia - noted on CT imaging, COVID19 positive in ER. No vaccination hx. - O2 goal 92, oxygen PRN - received 10 mg iv decadron in ER, cont 6mg IV daily - not candidate for remdesivir/plasma - monitor CBC, CMP - isolation precautions - unable to do CTA due to KULDIP. CT chest wo con showing worsening ground glass opacitiies with some lobar infiltrate bilaterally - pulm consult appreciated Superimposed hospital associated pneumonia? - concern for HAP given recent hospitalization and acute decompensation - Vanc, Cefepime ordered. MRSA nares pending. - procal 0.08, blood cultures pending - sputum culture pending COPD - continue spiriva daily - duonebs QID - flutter valve + incentive spirometry - guaifensin, encourage taking deep breaths and walking in room ad brigitte - sputum culture KULDIP on CKD - last Cr in [facility] 11/2019 was 1.30, CrCl 56.05 - 1.62 today - likely prerenal from dehydration and poor po intake - holding nephrotoxic medications; lisinopril/lasix - renal dose all medications - cont maint fluids on floor - monitor intake and output Chronic Medical Conditions CAD: cont statin, asa PAD: cont plavix HTN: holding lisinopril, lasix. cont isosorbide nitro, amlodipine BPH: Cont doxazosin, tamsulosin GERD: cont omeprazole Allergies: cont cetirizine, prn nasal steroid DVT ppx: covid lovenox ppx FEN/GI: NS @125, npo, omeprazole Full Code Dispo: PCU (2) Carotid artery stenosis: (3) Prediabetes: (4) Depression: (5) KAT on CPAP: (6) Hypercholesterolemia: (7) HLD (hyperlipidemia): (8) GERD (gastroesophageal reflux disease): (9) BPH (benign prostatic hyperplasia): (10) Stage 3b chronic kidney disease: (11) Hypoxia: History of Present Illness 75-year-old male with a past medical history of coronary artery disease status post CABG x3(1999), CKD stage III, GERD, hypertension, hypercholesterolemia, aortic stenosis, KAT, PAD s/p bilateral iliac artery stenting, asthma with COPD, agent orange exposure, BPH coming to ER short of breath. recently discharged from hospital on 11/23 for KULDIP. Here today for 4-5 days of shortness of breath and worsening appetite. poor PO intake and pain with deep inhalation. had a pulse ox delivered to the house and found his O2 to be 70% at home earlier today, and thus brought him to the ER. Primary Care Provider: Pallavi Rice MD Allergies Allergy/AdvReac Type Severity Reaction Status Date / Time Penicillins Allergy Severe PER PT Verified 11/29/20 15:53 ENDED UP IN HOSPITAL Home Medications Medication Instructions Recorded Confirmed Type amlodipine 10 mg PO DAILY 11/22/20 11/29/20 History aspirin 81 mg PO DAILY 11/22/20 11/29/20 History atorvastatin 20 mg PO HS 11/22/20 11/29/20 History cetirizine 10 mg PO DAILY 11/22/20 11/29/20 History citalopram 10 mg PO DAILY 11/22/20 11/29/20 History clopidogrel 75 mg PO DAILY 11/22/20 11/29/20 History doxazosin 1 mg PO DAILY 11/22/20 11/29/20 History furosemide 20 mg PO DAILY 11/22/20 11/29/20 History isosorbide mononitrate 30 mg PO DAILY 11/22/20 11/29/20 History lisinopril 10 mg PO DAILY 11/22/20 11/29/20 History omeprazole 20 mg PO DAILY 11/22/20 11/29/20 History tamsulosin 0.4 mg PO DAILY 11/22/20 11/29/20 History dexamethasone [Decadron] 6 mg PO DAILY #8 tab 11/23/20 11/29/20 Rx tiotropium bromide [Spiriva with 1 cap INHALATION DAILY #30 inh 11/23/20 11/29/20 Rx HandiHaler] azithromycin 250 mg PO DAILY 11/29/20 11/29/20 History Past Med/Surg History Medical History (Updated 11/30/20 @ 12:32 by Reinier Richter MD) Acute hypoxemic respiratory failure Agent orange exposure Allergic rhinitis CAD in [place]jas artery Claudication Herniated nucleus pulposus s/p surgical repair History of hypertension Left lumbar radiculopathy PAD (peripheral artery disease) Pneumonia due to COVID-19 virus Pulmonary nodule 2mm nodule , left upper lobe, 05/12/2017 Surgical History H/O endarterectomy 12/12/2019, [facility] [place] Dr. Bryant History of coronary artery bypass graft x3, ALMENDAREZ to LAD, left radial graft to obtuse marginal, and saphenous vein graft to posterior descending. 1999, [facility] [place] Dr. Boyle S/P insertion of iliac artery stent BL, 12/14/2017, [facility] [place] Dr. Bryant Family History Son Sudden Other Heart disease Hypertension Lung cancer Stroke Social History Smoking Status: Former smoker Cigarettes Per Day: 60; Second Hand Exposure: No; Hx Alcohol Use: Yes Alcohol type: hard liquor Hx Substance Use: No Preferred Language: Greek Communication Ability: Effective Relationship Assoc Required: Yes Beliefs That Will Affect Care: None Current Living Situation: Spouse Other Information That Helps Us Care for You: No Feels Safe at Home: Yes Assistive Devices: Denture - Upper, Denture - Lower, Glasses and Hearing Aid - Left Review of Systems Constitutional: + chills; no fever, no sweats and no fatigue Eyes: no blind spots and no discharge Ear, Nose, Mouth, Throat: + nasal congestion; no hearing loss Respiratory: + cough, + dyspnea, + dyspnea on exertion, + hemoptysis, + sputum production and + wheezing Cardiovascular: + dyspnea on exertion; no chest pain and no edema Gastrointestinal: + early satiety and + nausea; no abdominal pain, no vomiting, no constipation, no diarrhea/loose stools and no blood in stools Endocrine: + fatigue Physical Exam Physical Exam: Constitutional: obese,uncomfortable appearing Eyes: EOMI, pupils equal and reactive bilaterally, no scleral icterus Cardiac: RRR, no murmurs, gallops or rubs. Normal S1, S2 Pulm: bilateral wheezing, poor inspiratory effort, rhonchorous breath sounds, increased effort of breathing Abd: soft, nontender, nondistended, normal bowel sounds, no rebound or guarding Extremities: 1+ peripheral pulses, no edema Neuro: no focal deficits, moving all 4 limbs, A&Ox3 Results & Data Results & Data (MN) Vital Signs (Past 12 Hours) Vital Signs Temp Pulse Pulse Resp BP BP Pulse Ox 11/29/20 16:30 64 15 112/60 92 11/29/20 16:27 64 66 16 120/60 120/60 88 L 11/29/20 15:15 93 H 24 92 11/29/20 15:00 89 L 11/29/20 14:33 36.3 C L 76 16 127/65 73 L Laboratory Results WBC 12.82 K/uL (4.8-10.8) H 11/29/20 14:57 RBC 4.87 M/uL (4.7-6.1) 11/29/20 14:57 Hgb 14.7 g/dL (14.0-18.0) 11/29/20 14:57 POC Hgb 15.0 g/dl (14.0-18.0) 11/29/20 15:06 Hct 43.0 % (42-52) 11/29/20 14:57 POC Hct 44 % (42-52) 11/29/20 15:06 MCV 88.3 fL (80-100) 11/29/20 14:57 MCH 30.2 pg (25-34) 11/29/20 14:57 MCHC 34.2 g/dL (32-36) 11/29/20 14:57 RDW Std Deviation 45.9 fL (36.4-46.3) 11/29/20 14:57 RDW Coeff of Shahab 14.2 % (11.5-14.5) 11/29/20 14:57 Plt Count 186 K/uL (130-400) 11/29/20 14:57 MPV 12.1 fL (7.4-10.4) H 11/29/20 14:57 Immature Gran % (Auto) 1.1 % 11/29/20 14:57 Neut % (Auto) 88.4 % 11/29/20 14:57 Lymph % (Auto) 3.7 % 11/29/20 14:57 Hidalgo % (Auto) 6.6 % 11/29/20 14:57 Eos % (Auto) 0.0 % 11/29/20 14:57 Baso % (Auto) 0.2 % 11/29/20 14:57 Neut # (Auto) 11.35 K/uL (1.4-6.5) H 11/29/20 14:57 Lymph # (Auto) 0.47 K/uL (1.2-3.4) L 11/29/20 14:57 Hidalgo # (Auto) 0.84 K/uL (0.11-0.59) H 11/29/20 14:57 Eos # (Auto) 0.00 K/uL (0-0.5) 11/29/20 14:57 Baso # (Auto) 0.02 K/uL (0-0.2) 11/29/20 14:57 Immature Gran # (Auto) 0.14 K/uL (0.00-0.02) H 11/29/20 14:57 PT 10.5 Seconds (9.0-12.0) 11/29/20 14:57 INR 1.0 (0.9-1.1) 11/29/20 14:57 APTT 21.5 Seconds (21.0-31.0) 11/29/20 14:57 PTT Ratio 0.8 11/29/20 14:57 ABG pH 7.49 (7.35-7.45) H 11/29/20 15:09 ABG pCO2 24 mmHg (35-46) L 11/29/20 15:09 ABG pO2 57 mmHg (80-95) L 11/29/20 15:09 ABG HCO3 17 mmol/L (19-24) L 11/29/20 15:09 ABG O2 Saturation 91.2 % (90-95) 11/29/20 15:09 ABG Base Excess -3.9 mEq/L (-9-1.8) 11/29/20 15:09 Humphrey Test POS (Pos) 11/29/20 15:09 Barometric Pressure 731.1 mm/Hg 11/29/20 15:09 Oxygen Given 57% 11/29/20 15:09 POC Sodium 144 mmol/L (135-144) 11/29/20 15:06 Sodium 143 mmol/L (136-145) 11/29/20 14:57 POC Potassium 3.9 mmol/L (3.3-5.0) 11/29/20 15:06 Potassium 3.9 mmol/L (3.5-5.1) 11/29/20 14:57 POC Chloride 111 mmol/L (101-112) 11/29/20 15:06 Chloride 113 mmol/L (98-107) H 11/29/20 14:57 Carbon Dioxide 21 mmol/L (21-32) 11/29/20 14:57 POC Total CO2 19 mmol/L (24-31) L 11/29/20 15:06 Anion Gap 9.0 (3-11) 11/29/20 14:57 POC Anion Gap 19.0 mmol/L (16-25) 11/29/20 15:06 POC BUN 36 mg/dl (7-18) H 11/29/20 15:06 BUN 37 mg/dl (7-18) H 11/29/20 14:57 Creatinine 1.62 mg/dl (0.6-1.4) H 11/29/20 14:57 POC Creatinine 1.7 mg/dl (0.6-1.3) H 11/29/20 15:06 Est Cr Clr Drug Dosing Not Reportable 11/29/20 14:57 Est GFR ( Amer) 47.4 ml/min 11/29/20 14:57 Est GFR (Non-Af Amer) 40.9 ml/min 11/29/20 14:57 BUN/Creatinine Ratio 23.1 (10-20) H 11/29/20 14:57 Glucose 154 mg/dl (70-99) H 11/29/20 14:57 POC Glucose (other) 159 mg/dl (70-99) H 11/29/20 15:06 Lactate 2.5 mmol/L (0.4-2.0) H* 11/29/20 16:54 Calcium 8.6 mg/dl (8.5-10.1) 11/29/20 14:57 POC Ioniz Calcium Shaggy 1.20 mmol/l (1.12-1.32) 11/29/20 15:06 Magnesium 2.4 mg/dl (1.8-2.4) 11/29/20 14:57 Total Bilirubin 0.7 mg/dl (0.2-1) 11/29/20 14:57 AST 22 U/L (15-37) 11/29/20 14:57 ALT 39 U/L (12-78) 11/29/20 14:57 Alkaline Phosphatase 63 U/L (45-117) 11/29/20 14:57 Troponin I < 0.015 ng/ml (0-0.045) 11/29/20 14:57 NT-Pro-B Natriuret Pep 1748 pg/ml (0-900) H 11/29/20 14:57 Total Protein 8.8 gm/dl (6.4-8.2) H 11/29/20 14:57 Albumin 2.8 gm/dl (3.4-5.0) L 11/29/20 14:57 Globulin 6.0 gm/dl (2.5-4.0) H 11/29/20 14:57 Albumin/Globulin Ratio 0.5 (0.9-2) L 11/29/20 14:57 Procalcitonin 0.08 ng/ml (0-0.5) 11/29/20 14:57 Nasal Screen MRSA (PCR) Negative (Negative) 11/29/20 17:09 Impressions Chest X-Ray 11/29/20 14:42 SINGLE VIEW CHEST CLINICAL HISTORY: Sepsis. Covid. FINDINGS: An AP, portable, upright chest radiograph is compared to chest x-ray and chest CT dated 11/22/2020. The examination is degraded by portable technique, apical lordotic positioning, and patient rotation. The patient is status post midline sternotomy. The heart is enlarged noting atherosclerotic calcification of the thoracic aorta. There is pulmonary vascular congestion. Multifocal airspace consolidation has significantly progressed as compared to 11/22/2020. Suspect trace pleural effusions. No pneumothorax is seen. The skeletal structures are osteopenic. The bony thorax is grossly intact. IMPRESSION: 1. Multifocal airspace consolidation throughout both lungs has significantly increased as compared to 11/22/2020 and is consistent with the reported history of a viral pneumonia. Follow-up to resolution is recommended. 2. Cardiomegaly with pulmonary vascular congestion. 3. Suspect small pleural effusions. ACT 112: Negative or not required by law. Electronically signed by: Ascencion Lord M.D. 11/29/2020 3:[address] 11/29/20 17:00 CT chest diagnostic wo con CT DOSE: 961.51 mGy.cm HISTORY: Dyspnea. Pneumonia. Follow-up. TECHNIQUE: Multiaxial CT images of the chest were performed without contrast. A dose lowering technique was utilized adhering to the principles of ALARA. COMPARISON: Chest CT 11/22/2020. FINDINGS: Limited views the upper abdomen demonstrate normal liver, spleen, and adrenal glands. Normal esophagus. Subcentimeter mediastinal and hilar lymph nodes do not meet CT criteria for pathologic involvement. The heart remains mildly enlarged. No pleural or pericardial effusions. There are poststernotomy changes. No pneumothorax. The central airways appear patent. There is respiratory motion artifact resulting in suboptimal evaluation of the lungs. Near diffuse groundglass airspace opacities which has significantly progressed in the interval. There are few areas of consolidation within the bilateral lower lobes posteriorly. There are poststernotomy changes. No suspicious lytic or blastic osseous lesions. IMPRESSION: Interval progression of the near diffuse groundglass airspace opacities. This may represent a viral pneumonia or a hypersensitivity pneumonitis. Pulmonary consultation recommended. Follow-up chest CT in 6 months recommended to ensure resolution. ACT 112: Negative or not required by law. Electronically signed by: Waylon Rodriguez M.D. 11/29/2020 5:41 PM Supervising Physician Co-Signing Physician Notes Attending addendum: I have physically seen this patient, have supervised the medical residents activities, and agree with the H&P unless as otherwise noted. Assessment and Plan: Pneumonia with hypoxia/COVID-19/secondary HAP/COPD- Decadron 6 mg IV daily Duonebs every 4 hours while awake and every 2 hours when necessary. Vancomycin IV and cefepime IV Sputum Gram stain and culture Guaifenesin extended release 600 mg p.o. twice daily Vitamin D 5000 international units p.o. daily Zinc sulfate 220 mg p.o. daily Consult pulmonology KULDIP on CKD- Creatinine 1.62 upon admission, with base 1.30 hold lisinopril and Lasix Gentle IV fluid rehydration Recheck laboratories in a.m. Remaining orders and notations as noted Resident Activity Tracking Resident Involvement: Resident Care Provided Care Provided: Adult Hospital Medicine
--- NOTE | 2020-11-29 17:42 | CT Scan Report ---
CT chest diagnostic wo con CT DOSE: 961.51 mGy.cm HISTORY: Dyspnea. Pneumonia. Follow-up. TECHNIQUE: Multiaxial CT images of the chest were performed without contrast. A dose lowering techni que was utilized adhering to the principles of ALARA. COMPARISON: Chest CT 11/22/2020. FINDINGS: Limited views the upper abdomen demonstrate normal liver, spleen, and adrenal glands. [place] l esophagus. Subcentimeter mediastinal and hilar lymph nodes do not meet CT criteria for pathologic i nvolvement. The heart remains mildly enlarged. No pleural or pericardial effusions. There are postste rnotomy changes. No pneumothorax. The central airways appear patent. There is respiratory motion tish fact resulting in suboptimal evaluation of the lungs. Near diffuse groundglass airspace opacities whi ch has significantly progressed in the interval. There are few areas of consolidation within the bila teral lower lobes posteriorly. There are poststernotomy changes. No suspicious lytic or blastic osseo us lesions. IMPRESSION: Interval progression of the near diffuse groundglass airspace opacities. This may represent a viral p neumonia or a hypersensitivity pneumonitis. Pulmonary consultation recommended. Follow-up chest CT in 6 months recommended to ensure resolution. ACT 112: Negative or not required by law. Electronically signed by: Waylon Rodriguez M.D. 11/29/2020 5:41 PM
--- NOTE | 2020-11-29 19:07 | Emergency Department Note ---
History of Present Illness General Chief Complaint: Shortness of Breath/Dyspnea Stated Complaint: LOW O2 Time Seen by Provider: 11/29/20 14:42 History of Present Illness Provider Complaint: shortness of breath and cough Onset (ago): week(s) (2) Severity: severe Consistency/Duration: + progressively worsening Maximum Pain Intensity: 0 Current Pain Intensity: 0 Relieved By: + oxygen and + rest Exacerbated By: + exertion Context: + recent illness (Recently diagnosed with COVID-19. Patient was admitted to the hospital recently and discharged.) Associated symptoms: + fever, + cough and + sputum production; no chest pain, no palpitations, no nausea/vomiting, no abdominal pain and no rash Home Medications Medication Instructions Recorded Confirmed Type amlodipine 10 mg PO DAILY 11/22/20 11/29/20 History aspirin 81 mg PO DAILY 11/22/20 11/29/20 History atorvastatin 20 mg PO HS 11/22/20 11/29/20 History cetirizine 10 mg PO DAILY 11/22/20 11/29/20 History citalopram 10 mg PO DAILY 11/22/20 11/29/20 History clopidogrel 75 mg PO DAILY 11/22/20 11/29/20 History doxazosin 1 mg PO DAILY 11/22/20 11/29/20 History furosemide 20 mg PO DAILY 11/22/20 11/29/20 History isosorbide mononitrate 30 mg PO DAILY 11/22/20 11/29/20 History lisinopril 10 mg PO DAILY 11/22/20 11/29/20 History omeprazole 20 mg PO DAILY 11/22/20 11/29/20 History tamsulosin 0.4 mg PO DAILY 11/22/20 11/29/20 History dexamethasone [Decadron] 6 mg PO DAILY #8 tab 11/23/20 11/29/20 Rx tiotropium bromide [Spiriva with 1 cap INHALATION DAILY #30 inh 11/23/20 11/29/20 Rx HandiHaler] azithromycin 250 mg PO DAILY 11/29/20 11/29/20 History Allergies Allergy/AdvReac Type Severity Reaction Status Date / Time Penicillins Allergy Severe PER PT Verified 11/29/20 15:53 ENDED UP IN HOSPITAL Past Med/Surg History Medical History Agent orange exposure Allergic rhinitis CAD in [place] artery Claudication Herniated nucleus pulposus s/p surgical repair History of hypertension Left lumbar radiculopathy PAD (peripheral artery disease) Pneumonia due to COVID-19 virus Pulmonary nodule 2mm nodule , left upper lobe, 05/12/2017 Surgical History H/O endarterectomy 12/12/2019, [facility] Dr. Bryant History of coronary artery bypass graft x3, [place]Z to LAD, left radial graft to obtuse marginal, and saphenous vein graft to posterior descending. 1999, [facility] Dr. Boyle S/P insertion of iliac artery stent BL, 12/14/2017, [facility] Dr. Bryant Family History Son Sudden Other Heart disease Hypertension Lung cancer Stroke Social History Smoking Status: Former smoker Cigarettes Per Day: 60; Second Hand Exposure: No; Hx Alcohol Use: Yes Alcohol type: hard liquor Hx Substance Use: No Preferred Language: Armenian Communication Ability: Effective Chainstitch Hemmer Required: No Beliefs That Will Affect Care: None Current Living Situation: Spouse Feels Safe at Home: Yes Assistive Devices: None Review of Systems A total of 10 systems reviewed and were otherwise negative Physical Exam Vital Signs: Vital Signs - 24 hr 11/29/20 14:33 11/29/20 15:00 11/29/20 15:15 Temperature 36.3 C L Temperature Source Temporal Artery Sc an Pulse Rate 76 Pulse Rate [Finger ] 93 H Pulse Rate from Sp O2 Sensor Pulse Rhythm Regular Pulse Rhythm [Fing er] Pulse Strength Normal Pulse Strength [Fi nger] Respiratory Rate 16 24 Respiratory Effort / Characteristics Non-Labored Sponta neous Respiratory Depth Respiratory Patter n Blood Pressure 127/65 Blood Pressure [Ri ght Arm] Blood Pressure Robyn n 85 Blood Pressure Robyn n [Right Arm] Blood Pressure Pos ition Sitting Blood Pressure Pos ition [Right Arm] Pulse Oximetry 73 L 89 L 92 Oxygen Delivery Me thod Room Air High Flow Nasal Ca nnula High Flow Nasal Ca nnula Oxygen Flow Rate 40 40 Fraction of Inspir ed Oxygen 90 Sepsis Recent Feve r Within 48 Hours No Sepsis New/Unexpla ined Change in Men casey Status N/A Sepsis Action Take n by Nursing No Action Required 11/29/20 16:27 11/29/20 16:30 Temperature Temperature Source Pulse Rate 64 64 Pulse Rate [Finger ] 66 Pulse Rate from Sp O2 Sensor 67 63 Pulse Rhythm Pulse Rhythm [Fing er] Regular Pulse Strength Pulse Strength [Fi nger] Normal Respiratory Rate 16 15 Respiratory Effort / Characteristics Non-Labored Sponta neous Respiratory Depth Normal Respiratory Patter n Regular Blood Pressure 120/60 112/60 Blood Pressure [Ri ght Arm] 120/60 Blood Pressure Robyn n 80 77 Blood Pressure Robyn n [Right Arm] 80 Blood Pressure Pos ition Blood Pressure Pos ition [Right Arm] Sitting Pulse Oximetry 88 L 92 Oxygen Delivery Me thod High Flow Nasal Ca nnula Oxygen Flow Rate 40 Fraction of Inspir ed Oxygen Sepsis Recent Feve r Within 48 Hours Sepsis New/Unexpla ined Change in Men casey Status Sepsis Action Take n by Nursing Physical Exam: Physical Exam HENT: Exam performed. - Head: Normocephalic and atraumatic. - Right Ear: External ear normal. No mastoid tenderness. - Left Ear: External ear normal. No mastoid tenderness. - Mouth/Throat: The oropharynx is clear and moist. No trismus in the jaw. No dental abscesses or uvula swelling. No oropharyngeal exudate or tonsillar abscesses. EYES: Conjunctivae and EOM are normal. Pupils are equal, round, and reactive to light. Right eye exhibits no discharge. Left eye exhibits no discharge. No scleral icterus. NECK: Normal range of motion. Neck supple. No JVD present. No spinous process tenderness present. No carotid bruit present. No rigidity. No tracheal deviation and normal range of motion present. No Brudzinski's sign and no Kernig's sign noted. CV: Normal rate, regular rhythm, normal heart sounds and intact distal pulses. There is no peripheral edema. Palpable radial pulses bue. PULM/CHEST: Tachypneic, bilateral expiratory wheezes and rhonchi bilaterally. - Chest Wall: He exhibits no tenderness. ABD: The abdomen is soft. Bowel sounds are normal. He has no distension. No mass is present. There is no tenderness. There is no rebound, no guarding, no Dumont's sign and no tenderness at McBurney's point. Rovsig negative. MUSC/SKEL: Normal range of motion. There is no peripheral edema, tenderness or deformity. LYMPH: No cervical adenopathy. NEURO: He is alert and oriented to person, place, and time. He has normal strength. No cranial nerve deficit or sensory deficit. Coordination and gait normal. GCS eye subscore is 4. GCS verbal subscore is 5. GCS motor subscore is 6. Cerebellar tests wnl. SKIN: Skin is warm and dry. He is not diaphoretic. PSYCH: He has a normal mood and affect. Behavior is normal. Judgment and thought content normal. Course Course 1442: The patient was evaluated in room C5. A complete history and physical exam was performed Cardiac monitoring: An order was placed for continuous cardiac monitoring. The monitor shows a rate of 80 with sinus rhythm Patient hypoxic at 70% on room air. Patient will be placed on high flow nasal cannula. EMR reviewed. [facility] and discharged on November 23, 2020. Decadron 6 mg IV push ordered for the patient. 1600: Vital signs improved on high flow nasal cannula. Patient's labs show a leukocytosis of 12.8. Creatinine of 1.6 at baseline. ABG shows P a O2 of 57 and oxygen saturation of 91 while on high flow nasal cannula. Lactate 2.2. proBNP of 1748. Chest x-ray showed multifocal airspace consolidation in both lungs which is significantly increased when compared to the chest x-ray done on November 22. There is cardiomegaly with pulmonary vascular congestion. [facility] notified. Administered Medications Discontinued Medications Dexamethasone (Dexamethasone Sod Inj 4 Mg/Ml Vial) Confirm Administered Dose 8 mg .ROUTE .STK-MED ONE Stop: 11/29/20 14:49 Last Admin: 11/29/20 15:03 Dose: Not Given Documented by: [id number] Dexamethasone 6 mg/ Syringe 1.5 mls @ 1 mls/min IV ONE ONE Stop: 11/29/20 14:55 Last Admin: 11/29/20 15:01 Dose: 1 mls/min Documented by: [id number] Medical Decision Making Laboratory Data Result diagrams: 11/29/20 14:57 11/29/20 14:57 Lab Results 11/29/20 11/29/20 11/29/20 Range/Units 14:57 14:57 14:57 WBC 12.82 H (4.8-10.8) K/uL RBC 4.87 (4.7-6.1) M/uL Hgb 14.7 (14.0-18.0) g/dL POC Hgb (14.0-18.0) g/dl Hct 43.0 (42-52) % POC Hct (42-52) % MCV 88.3 (80-100) fL MCH 30.2 (25-34) pg MCHC 34.2 (32-36) g/dL RDW Std Deviation 45.9 (36.4-46.3) fL RDW Coeff of Shahab 14.2 (11.5-14.5) % Plt Count 186 (130-400) K/uL MPV 12.1 H (7.4-10.4) fL Immature Gran % (Auto) 1.1 % Neut % (Auto) 88.4 % Lymph % (Auto) 3.7 % [place] % (Auto) 6.6 % Eos % (Auto) 0.0 % Baso % (Auto) 0.2 % Neut # (Auto) 11.35 H (1.4-6.5) K/uL Lymph # (Auto) 0.47 L (1.2-3.4) K/uL [place] # (Auto) 0.84 H (0.11-0.59) K/uL Eos # (Auto) 0.00 (0-0.5) K/uL Baso # (Auto) 0.02 (0-0.2) K/uL Immature Gran # (Auto) 0.14 H (0.00-0.02) K/uL PT 10.5 (9.0-12.0) Seconds INR 1.0 (0.9-1.1) APTT 21.5 (21.0-31.0) Seconds PTT Ratio 0.8 ABG pH (7.35-7.45) ABG pCO2 (35-46) mmHg ABG pO2 (80-95) mmHg ABG HCO3 (19-24) mmol/L ABG O2 Saturation (90-95) % ABG Base Excess (-9-1.8) mEq/L Humphrey Test (Pos) Barometric Pressure mm/Hg Oxygen Given POC Sodium (135-144) mmol/L Sodium 143 (136-145) mmol/L POC Potassium (3.3-5.0) mmol/L Potassium 3.9 (3.5-5.1) mmol/L POC Chloride (101-112) mmol/L Chloride 113 H (98-107) mmol/L Carbon Dioxide 21 (21-32) mmol/L POC Total CO2 (24-31) mmol/L Anion Gap 9.0 (3-11) POC Anion Gap (16-25) mmol/L POC BUN (7-18) mg/dl BUN 37 H (7-18) mg/dl Creatinine 1.62 H (0.6-1.4) mg/dl POC Creatinine (0.6-1.3) mg/dl Est Cr Clr Drug Dosing Not Reportable Est GFR ( Amer) 47.4 ml/min Est GFR (Non-Af Amer) 40.9 ml/min BUN/Creatinine Ratio 23.1 H (10-20) Glucose 154 H (70-99) mg/dl POC Glucose (other) (70-99) mg/dl Lactate (0.4-2.0) mmol/L Calcium 8.6 (8.5-10.1) mg/dl POC Ioniz Calcium Shaggy (1.12-1.32) mmol/l Magnesium 2.4 (1.8-2.4) mg/dl Total Bilirubin 0.7 (0.2-1) mg/dl AST 22 (15-37) U/L ALT 39 (12-78) U/L Alkaline Phosphatase 63 (45-117) U/L Troponin I < 0.015 (0-0.045) ng/ml NT-Pro-B Natriuret Pep (0-900) pg/ml Total Protein 8.8 H (6.4-8.2) gm/dl Albumin 2.8 L (3.4-5.0) gm/dl Globulin 6.0 H (2.5-4.0) gm/dl Albumin/Globulin Ratio 0.5 L (0.9-2) Procalcitonin (0-0.5) ng/ml 11/29/20 11/29/20 11/29/20 Range/Units 14:57 14:57 14:57 WBC (4.8-10.8) K/uL RBC (4.7-6.1) M/uL Hgb (14.0-18.0) g/dL POC Hgb (14.0-18.0) g/dl Hct (42-52) % POC Hct (42-52) % MCV (80-100) fL MCH (25-34) pg MCHC (32-36) g/dL RDW Std Deviation (36.4-46.3) fL RDW Coeff of Shahab (11.5-14.5) % Plt Count (130-400) K/uL MPV (7.4-10.4) fL Immature Gran % (Auto) % Neut % (Auto) % Lymph % (Auto) % [place] % (Auto) % Eos % (Auto) % Baso % (Auto) % Neut # (Auto) (1.4-6.5) K/uL Lymph # (Auto) (1.2-3.4) K/uL [place] # (Auto) (0.11-0.59) K/uL Eos # (Auto) (0-0.5) K/uL Baso # (Auto) (0-0.2) K/uL Immature Gran # (Auto) (0.00-0.02) K/uL PT (9.0-12.0) Seconds INR (0.9-1.1) APTT (21.0-31.0) Seconds PTT Ratio ABG pH (7.35-7.45) ABG pCO2 (35-46) mmHg ABG pO2 (80-95) mmHg ABG HCO3 (19-24) mmol/L ABG O2 Saturation (90-95) % ABG Base Excess (-9-1.8) mEq/L Humphrey Test (Pos) Barometric Pressure mm/Hg Oxygen Given POC Sodium (135-144) mmol/L Sodium (136-145) mmol/L POC Potassium (3.3-5.0) mmol/L Potassium (3.5-5.1) mmol/L POC Chloride (101-112) mmol/L Chloride (98-107) mmol/L Carbon Dioxide (21-32) mmol/L POC Total CO2 (24-31) mmol/L Anion Gap (3-11) POC Anion Gap (16-25) mmol/L POC BUN (7-18) mg/dl BUN (7-18) mg/dl Creatinine (0.6-1.4) mg/dl POC Creatinine (0.6-1.3) mg/dl Est Cr Clr Drug Dosing Est GFR ( Amer) ml/min Est GFR (Non-Af Amer) ml/min BUN/Creatinine Ratio (10-20) Glucose (70-99) mg/dl POC Glucose (other) (70-99) mg/dl Lactate 2.2 H* (0.4-2.0) mmol/L Calcium (8.5-10.1) mg/dl POC Ioniz Calcium Shaggy (1.12-1.32) mmol/l Magnesium (1.8-2.4) mg/dl Total Bilirubin (0.2-1) mg/dl AST (15-37) U/L ALT (12-78) U/L Alkaline Phosphatase (45-117) U/L Troponin I (0-0.045) ng/ml NT-Pro-B Natriuret Pep 1748 H (0-900) pg/ml Total Protein (6.4-8.2) gm/dl Albumin (3.4-5.0) gm/dl Globulin (2.5-4.0) gm/dl Albumin/Globulin Ratio (0.9-2) Procalcitonin 0.08 (0-0.5) ng/ml 11/29/20 11/29/20 Range/Units 15:06 15:09 WBC (4.8-10.8) K/uL RBC (4.7-6.1) M/uL Hgb (14.0-18.0) g/dL POC Hgb 15.0 (14.0-18.0) g/dl Hct (42-52) % POC Hct 44 (42-52) % MCV (80-100) fL MCH (25-34) pg MCHC (32-36) g/dL RDW Std Deviation (36.4-46.3) fL RDW Coeff of Shahab (11.5-14.5) % Plt Count (130-400) K/uL MPV (7.4-10.4) fL Immature Gran % (Auto) % Neut % (Auto) % Lymph % (Auto) % [place] % (Auto) % Eos % (Auto) % Baso % (Auto) % Neut # (Auto) (1.4-6.5) K/uL Lymph # (Auto) (1.2-3.4) K/uL [place] # (Auto) (0.11-0.59) K/uL Eos # (Auto) (0-0.5) K/uL Baso # (Auto) (0-0.2) K/uL Immature Gran # (Auto) (0.00-0.02) K/uL PT (9.0-12.0) Seconds INR (0.9-1.1) APTT (21.0-31.0) Seconds PTT Ratio ABG pH 7.49 H (7.35-7.45) ABG pCO2 24 L (35-46) mmHg ABG pO2 57 L (80-95) mmHg ABG HCO3 17 L (19-24) mmol/L ABG O2 Saturation 91.2 (90-95) % ABG Base Excess -3.9 (-9-1.8) mEq/L Humphrey Test POS (Pos) Barometric Pressure 731.1 mm/Hg Oxygen Given 57% POC Sodium 144 (135-144) mmol/L Sodium (136-145) mmol/L POC Potassium 3.9 (3.3-5.0) mmol/L Potassium (3.5-5.1) mmol/L POC Chloride 111 (101-112) mmol/L Chloride (98-107) mmol/L Carbon Dioxide (21-32) mmol/L POC Total CO2 19 L (24-31) mmol/L Anion Gap (3-11) POC Anion Gap 19.0 (16-25) mmol/L POC BUN 36 H (7-18) mg/dl BUN (7-18) mg/dl Creatinine (0.6-1.4) mg/dl POC Creatinine 1.7 H (0.6-1.3) mg/dl Est Cr Clr Drug Dosing Est GFR ( Amer) ml/min Est GFR (Non-Af Amer) ml/min BUN/Creatinine Ratio (10-20) Glucose (70-99) mg/dl POC Glucose (other) 159 H (70-99) mg/dl Lactate (0.4-2.0) mmol/L Calcium (8.5-10.1) mg/dl POC Ioniz Calcium Shaggy 1.20 (1.12-1.32) mmol/l Magnesium (1.8-2.4) mg/dl Total Bilirubin (0.2-1) mg/dl AST (15-37) U/L ALT (12-78) U/L Alkaline Phosphatase (45-117) U/L Troponin I (0-0.045) ng/ml NT-Pro-B Natriuret Pep (0-900) pg/ml Total Protein (6.4-8.2) gm/dl Albumin (3.4-5.0) gm/dl Globulin (2.5-4.0) gm/dl Albumin/Globulin Ratio (0.9-2) Procalcitonin (0-0.5) ng/ml Imaging Data Radiologist's Impression: SINGLE VIEW CHEST CLINICAL HISTORY: Sepsis. Covid. FINDINGS: An AP, portable, upright chest radiograph is compared to chest x-ray and chest CT dated 11/22/2020. The examination is degraded by portable technique, apical lordotic positioning, and patient rotation. The patient is status post midline sternotomy. The heart is enlarged noting atherosclerotic calcification of the thoracic aorta. There is pulmonary vascular congestion. Multifocal airspace consolidation has significantly progressed as compared to 11/22/2020. Suspect trace pleural effusions. No pneumothorax is seen. The skeletal structure s are osteopenic. The bony thorax is grossly intact. IMPRESSION: 1. Multifocal airspace consolidation throughout both lungs has significantly increased as compared to 11/22/2020 and is consistent with the reported history of a viral pneumonia. Follow-up to resolution is recommended. 2. Cardiomegaly with pulmonary vascular congestion. 3. Suspect small pleural effusions. ACT 112: Negative or not required by law. Electronically signed by: Ascencion Lord M.D. 11/29/2020 3:56 PM Dictated: 11/29/20 1554Transcribed: 11/29/20 1554 ECG Data Interpretation: Sinus rhythm with rate of 71. HI 214. QRS and QTc intervals w ithin normal limits. No ST elevation or ST depression. First-degree AV block present. [facility] Narrative 1442: The patient was evaluated in room C5. A complete history and physical exam was performed Cardiac monitoring: An order was placed for continuous cardiac monitoring. The monitor shows a rate of 80 with sinus rhythm Patient hypoxic at 70% on room air. Patient will be placed on high flow nasal cannula. EMR reviewed. Patient was admitted to the [facility] hospitalist team for Covid pneumonia on November 22, 2020 and discharged on November 23, 2020. Decadron 6 mg IV push ordered for the patient. 1600: Vital signs improved on high flow nasal cannula. Patient's labs show a leukocytosis of 12.8. Creatinine of 1.6 at baseline. ABG shows P a O2 of 57 and oxygen saturation of 91 while on high flow nasal cannula. Lactate 2.2. proBNP of 1748. Chest x-ray showed multifocal airspace consolidation in both lungs which is significantly increased when compared to the chest x-ray done on November 22. There is cardiomegaly with pulmonary vascular congestion. [facility] notified. Impression & Plan Hypoxia, Pneumonia due to 2019 novel coronavirus Critical Care Time Critical Care Time: Yes Total Critical Care Time: 57 I have personally spent greater than 57 minutes of critical care time in the direct management of this patient. This includes bedside care, interpretation of diagnostic studies, and testing, discussion with consultants, patient, and family members, and other required patient management activities. This 57 minut es is in excess of all separately billable procedures. Discharge Plan Visit Data Chief Complaint: Shortness of Breath/Dyspnea Stated Complaint: LOW O2 ED Provider: Elvin Kirk Discharge Problem: Hypoxia, Pneumonia due to 2019 novel coronavirus Patient Disposition: Admitted As Inpatient Discharge Instructions Interventions: ED Discharge Assessment Last Done: 11/29/20 18:36
[2020-11-29] MEDS ORDERED: GLUCOSE 40% GEL 15 GM TUBE PO PRN (19:13)
[2020-11-29] MEDS ORDERED: DEXTROSE 50% 50 ML SYRINGE IV PRN (19:13)
[2020-11-29] MEDS ORDERED: NITROGLYCERIN SL 0.4 MG/TAB TAB SL PRN (19:13)
[2020-11-29] MEDS ORDERED: VANCOMYCIN CONSULT ACTIVE PRN (19:13)
[2020-11-29] MEDS ORDERED: GLUCOSE 10 TABS/TUBE PO PRN (19:13)
[2020-11-29] MEDS ORDERED: ONDANSETRON INJ 2 MG/ML 2 ML VIAL IV PRN (19:13)
[2020-11-29] MEDS ORDERED: VANCOMYCIN HCL 1,000 MG in SODIUM CHLORIDE 0.9% 250 ML IV SCH (19:13)
[2020-11-29] MEDS ORDERED: POLYETHYLENE (MIRALAX) 17 GM PACK PO PRN (19:13)
[2020-11-29] MEDS ORDERED: CARBOHYDRATES FOR HYPOGLYCEMIA PO PRN (19:13)
[2020-11-29] MEDS ORDERED: ACETAMINOPHEN 325 MG TAB PO PRN (19:13)
[2020-11-29] MEDS ORDERED: MAGNESIUM HYDROXIDE SUSP 30 ML UDC PO PRN (19:13)
[2020-11-29] MEDS ORDERED: GLUCAGON FOR INJ 1 MG VIAL SQ PRN (19:13)
[2020-11-29] MEDS ORDERED: ALBUT/IPRATROP 3MG/0.5MG NEB 3 ML VIAL NEB PRN (19:51)
[2020-11-29] MEDS: ENOXAPARIN INJ 40 MG/0.4 ML SYR SQ SCH (20:30)
[2020-11-29] MEDS: CEFEPIME 2,000 MG in SYRINGE 0 ML IV SCH (20:31)
[2020-11-29] MEDS: ATORVASTATIN 20 MG TAB PO SCH (20:31)
[2020-11-29] MEDS: INSULIN ASPART 100 UNITS/ML 3 ML PEN SC SCH (22:11)
[2020-11-29 23:49] LABS: Appearance Urine Clear (Clear); Bacteria Urine Automated Negative (Negative); Bilirubin Urine Negative (Negative); Blood Urine Negative (Negative); Color Urine Yellow; Glucose Urine UA Negative (Negative); Ketones Urine Negative (Negative); Leukocyte Esterase Urine Negative (Negative); Nitrite Urine Negative (Negative); Protein Urine Trace (Negative); RBC Urine Automated 0-4 /hpf (0-4); Specific Gravity Urine 1.023 (1.000-1.030); Urobilinogen Urine Negative (Negative)
[2020-11-30] MEDS: ALBUT/IPRATROP 3MG/0.5MG NEB 3 ML VIAL NEB SCH ×4 (07:14→19:47)
--- NOTE | 2020-11-30 07:49 | Electrocardiogram Report ---
Test Reason : Blood Pressure : / mmHG Vent. Rate : 071 BPM Atrial Rate : 071 BPM P-R Int : 214 ms QRS Dur : 098 ms QT Int : 410 ms P-R-T Axes : 085 -15 -40 degrees QTc Int : 445 ms Sinus rhythm with 1st degree A-V block Diffuse Nonspecific T wave abnormality Abnormal ECG When compared with ECG of 22-NOV-2020 17:16, Premature ventricular complexes are no longer Present Diffuse Nonspecific T wave abnormality now present Confirmed by Khadar Salas ([id number]) on 11/30/2020 7:48:32 AM Referred By: Pallavi Rice Confirmed By:Khadar Salas
[2020-11-30] MEDS: ENOXAPARIN INJ 40 MG/0.4 ML SYR SQ SCH ×2 (08:09→19:34)
[2020-11-30] MEDS: CEFEPIME 2,000 MG in SYRINGE 0 ML IV SCH ×2 (08:09→20:21)
[2020-11-30] MEDS: ISOSORBIDE MONO EXTENDED REL 30 MG TABCR PO SCH (08:10)
[2020-11-30] MEDS: TAMSULOSIN HCL 0.4 MG CAP PO SCH (08:10)
[2020-11-30] MEDS: UMECLIDINIUM BROMIDE 62.5MCG/BLISTER 7 PUFFS/INHALER INH SCH (08:10)
[2020-11-30] MEDS: CITALOPRAM 20 MG TAB PO SCH (08:10)
[2020-11-30] MEDS: DOXAZOSIN MESYLATE 1 MG TAB PO SCH (08:10)
[2020-11-30] MEDS: CLOPIDOGREL BISULFATE 75 MG TAB PO SCH (08:10)
[2020-11-30] MEDS: CETIRIZINE HCL 10 MG TABLET PO SCH (08:11)
[2020-11-30] MEDS: ASPIRIN 81 MG ECTAB PO SCH (08:11)
[2020-11-30] MEDS: amLODIPine BESYLATE 5 MG TAB PO SCH (08:11)
[2020-11-30] MEDS: PANTOprazole 40 MG TAB PO SCH (08:12)
[2020-11-30] MEDS: dexAMETHasone 6 MG in SYRINGE 0 ML IV SCH (08:30)
[2020-11-30] MEDS ORDERED: lisinopril 10 MG TAB PO SCH (09:00)
[2020-11-30] MEDS ORDERED: FUROSEMIDE 20 MG TAB PO SCH (09:00)
[2020-11-30] MEDS: INSULIN ASPART 100 UNITS/ML 3 ML PEN SC SCH ×4 (09:17→20:21)
--- NOTE | 2020-11-30 09:19 | Hospitalist Progress Note ---
Date of Service November 30, 2020 Assessment & Plan (1) Pneumonia due to COVID-19 virus: 75 yo M w/ extensive vascular hx in ER for acute dyspnea and hypoxia, poor po intake, found to have worsening COVID pneumonia. recently discharged on 11/23 now is returned with declining status ,initial date of diagnosis 11/22. Had been sick for about a month and was treated with antibiotics Acute on chronic respiratory failure with hypoxia Worsening COVID19 P[address] chest 11/29/20 Interval progression of the near diffuse groundglass airspace opacities. This may represent a viral pneumonia or a hypersensitivity pneumonitis. . Follow-up chest CT in 6 months recommended to ensure resolution. - [place] oxygen - received 10 mg iv decadron in ER, cont 6mg IV daily - not candidate for remdesivir/plasma due to timing of illness - airborne isolation precautions Tociluzimab ordered 11/30/20 Superimposed hospital associated pneumonia? - concern for HAP given recent hospitalization and acute decompensation - Vanc, Cefepime ordered. MRSA nares pending. - procal 0.08, blood cultures pending - sputum culture pending COPD - continue spiriva daily - duonebs QID, decadron - flutter valve + incentive spirometry - guaifensin, encourage taking deep breaths and walking in room ad brigitte - sputum culture KULDIP on CKD - last Cr in [place] [facility] 11/2019 was 1.30, CrCl 56.05 - 1.62 today - overall will try to keep dry with covid pneumonia to improve oxygenation - Chronic Medical Conditions CAD: cont statin, asa PAD: cont plavix HTN: holding lisinopril, lasix. cont isosorbide nitro, amlodipine BPH: Cont doxazosin, tamsulosin GERD: cont omeprazole Allergies: cont cetirizine, prn nasal steroid DVT ppx: covid lovenox ppx Full Code (2) Carotid artery stenosis: (3) Prediabetes: (4) Depression: (5) KAT on CPAP: Patient currently on high flow oxygen at a fairly high rates will likely use noninvasive positive pressure ventilation if he declines or appears to be fatigued (6) Hypercholesterolemia: (7) HLD (hyperlipidemia): (8) GERD (gastroesophageal reflux disease): (9) BPH (benign prostatic hyperplasia): (10) Stage 3b chronic kidney disease: (11) Hypoxia: Admission and Anticipated Discharge Date Admission Date: November 29, 2020 Subjective pt is fairly breathless, otherwise is in no distress, with mild diarrhea and altered taste of food. Pulmonary medicine is considering Tociluzimab Review of Systems Review of Systems: Moderate to severe respiratory distress and fatigue no headache, no visual changes no speech or swallowing issues loss of taste no chest pain, pressure or palpitations Significant shortness of breath and nonproductive cough no abdominal pain, nausea or vomiting, does have some mild diarrhea no dysuria, hematuria or frequency no focal joint pain or swelling no back pain, CVA tenderness or radicular pain no bruising, bleeding or rashes no focal signs of weakness or numbness or altered sensation no complaints of anxiety or depression.. Physical Exam Physical Exam: The patient appeared mild to moderate respiratory distress Vital signs as documented. Head exam is normocephalic atraumatic Neck is without JVD, thyromegaly, or carotid bruits. Lungs are lateral rales both lung [facility] up are more Cardiac exam, Rhythm is regular.. No murmurs, rubs or gallops. Abdominal exam reveals normal bowel sounds, soft non tender, no masses Extremities are nonedematous and both pedal pulses are present Neurologic exam is alert and oriented, no focal loss of strength or sensation Skin is without bruises or rashes Psychologically is without concerns for anxiety or depression Results & Data Results & Data ([facility]) Vital Signs (Past 12 Hours) Vital Signs Temp Pulse Pulse Resp BP BP Pulse Ox 11/30/20 08:34 97.5 F L 60 26 H 137/69 87 L 11/30/20 07:17 53 L 28 H 95 11/30/20 07:15 55 L 28 H 94 11/30/20 04:52 97.5 F L 44 L 20 138/74 92 11/30/20 01:28 51 L 28 H 90 11/30/20 00:15 98.6 F 53 L 22 139/71 90 11/30/20 00:00 65 PG Care Time/CCT Total # of Minutes Spent Total Time Spent with Patient: Total time spent is greater than 50% in coordination of care (as documented) at patient's floor/unit and/or counseling patient: Coding Level of Care Code 93342 Subseq Hosp Care Lvl 3 Diagnoses Pneumonia due to COVID-19 virus U07.1; J12.82 Carotid artery stenosis I65.29 Prediabetes R73.03 Depression F32.9 KAT on CPAP G47.33; Z99.89 Hypercholesterolemia E78.00 HLD (hyperlipidemia) E78.5 GERD (gastroesophageal reflux disease) K21.9 BPH (benign prostatic hyperplasia) N40.0 Stage 3b chronic kidney disease N18.32 Hypoxia R09.02
--- NOTE | 2020-11-30 12:10 | Pulmonary Consultation ---
Date of Consultation November 30, 2020 Assessment & Plan (1) Acute hypoxemic respiratory failure: 35-year-old male with a history of coronary artery bypass grafting, peripheral vascular disease, asthma, CKD stage III and GERD presenting to the hospital due to worsening hypoxic respiratory failure thought to be secondary to COVID-19 illness. Acute hypoxic respiratory failure: Likely a sequelae of COVID-19 infection. I suspect that he is currently in the cytokine storm phase of his COVID-19 illness. I am checking a ferritin level, D-dimer and CRP. He may be a candidate for tocilizumab. This was discussed with the patient and the patient's hospitalist. I am also repeating a CBC and a CMP. Continue Decadron at the current dose of 6 mg daily. Procalcitonin was negative. I do not suspect bacterial illness. Cefepime can be discontinued. His proBNP was elevated. I am going to give him 20 mg of IV Lasix. Incentive spirometry ordered to help improve and prevent further atelectasis. Awake proning encouraged. Diffuse groundglass opacities noted on CT chest: As above. Likely secondary to evolving COVID-19 illness. Volume overload may be playing a role as well. History of asthma and COPD: Continue bronchodilators. Thank you for the consultation. Pulmonary continue to follow along with you. (2) Pneumonia due to COVID-19 virus: (3) Asthma with COPD: History of Present Illness Reason for Consultation: Hypoxemia in the setting of recent COVID-19 illness Attending Physician: Jesse Antoine MD History of Present Illness 75-year-old female with a past medical history of CABG x3, CKD stage III, GERD, hypertension, aortic stenosis, KAT, peripheral vascular disease, asthma and COPD who presented to the hospital on 11/29/2020 due to increasing shortness of breath. She was actually discharged on 11/23/2020 for COVID-19 illness and was given a course of Decadron. He was also given azithromycin. Notably, she was leukopenic and thrombocytopenic on her previous hospitalization. He is lab abnormalities have resolved and now she has a mild leukocytosis. He notes that he was initially diagnosed with COVID-19 October 27. His was sick as well. He has been feeling short of breath ever since. Over the last several days he has been having very severe shortness of breath even at rest. He endorses a cough that is occasionally productive of sputum. He denies any chest pain at present. No nausea or vomiting. He does have a history of asthma. He notes he quit smoking over 30 years ago. He denies any significant exposure history including exposures to birds. He has 1 dog and 1 cat at home. She does have an elevated proBNP of 1748. Procalcitonin was within normal limits at 0.08. He is currently on Decadron and cefepime. Her nasal MRSA screen was negative. She is currently requiring 100% FiO2 and 40 L via high flow nasal cannula Allergies Allergy/AdvReac Type Severity Reaction Status Date / Time Penicillins Allergy Severe PER PT Verified 11/29/20 15:53 ENDED UP IN HOSPITAL Home Medications Medication Instructions Recorded Confirmed Type amlodipine 10 mg PO DAILY 11/22/20 11/29/20 History aspirin 81 mg PO DAILY 11/22/20 11/29/20 History atorvastatin 20 mg PO HS 11/22/20 11/29/20 History cetirizine 10 mg PO DAILY 11/22/20 11/29/20 History citalopram 10 mg PO DAILY 11/22/20 11/29/20 History clopidogrel 75 mg PO DAILY 11/22/20 11/29/20 History doxazosin 1 mg PO DAILY 11/22/20 11/29/20 History furosemide 20 mg PO DAILY 11/22/20 11/29/20 History isosorbide mononitrate 30 mg PO DAILY 11/22/20 11/29/20 History lisinopril 10 mg PO DAILY 11/22/20 11/29/20 History omeprazole 20 mg PO DAILY 11/22/20 11/29/20 History tamsulosin 0.4 mg PO DAILY 11/22/20 11/29/20 History dexamethasone [Decadron] 6 mg PO DAILY #8 tab 11/23/20 11/29/20 Rx tiotropium bromide [Spiriva with 1 cap INHALATION DAILY #30 inh 11/23/20 11/29/20 Rx HandiHaler] azithromycin 250 mg PO DAILY 11/29/20 11/29/20 History Patient History Medical History Agent orange exposure Allergic rhinitis CAD in [place] artery Claudication Herniated nucleus pulposus s/p surgical repair History of hypertension Left lumbar radiculopathy PAD (peripheral artery disease) Pneumonia due to COVID-19 virus Pulmonary nodule 2mm nodule , left upper lobe, 05/12/2017 Surgical History H/O endarterectomy 12/12/2019, [place] Dr. Bryant History of coronary artery bypass graft x3, [place]ENDAREZ to LAD, left radial graft to obtuse marginal, and saphenous vein graft to posterior descending. 1999, [place] Dr. Boyle S/P insertion of iliac artery stent BL, 12/14/2017, [place] Dr. 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 Beliefs That Will Affect Care: None Current Living Situation: Spouse Other Information That Helps Us Care for You: No Feels Safe at Home: Yes Assistive Devices: Denture - Upper, Denture - Lower, Glasses and Hearing Aid - Left Results & Data Results & Data ([facility]) Vital Signs (Past 12 Hours) Vital Signs Temp Pulse Pulse Resp BP BP Pulse Ox 11/30/20 11:16 73 20 91 11/30/20 10:37 60 11/30/20 08:34 97.5 F L 60 26 H 137/69 87 L 11/30/20 07:17 53 L 28 H 95 11/30/20 07:15 55 L 28 H 94 11/30/20 04:52 97.5 F L 44 L 20 138/74 92 11/30/20 01:28 51 L 28 H 90 11/30/20 00:15 98.6 F 53 L 22 139/[address] of her chest was personally reviewed. There has been interval progression with diffuse groundglass opacities based on CT from 11/29/2020. Previous to this she had a CT of her chest on 11/22/2020 which was demonstrating a few groundglass airspace opacities. PG Care Time/CCT Total # of Minutes Spent Total Time Spent with Patient: Total time spent is greater than 50% in coordination of care (as documented) at patient's floor/unit and/or counseling patient: Coding Level of Care Code 40554 Initial Inpt Care Lvl 3 Diagnoses Acute hypoxemic respiratory failure J96.01 Pneumonia due to COVID-19 virus U07.1; J12.82 Asthma with COPD J44.9
[2020-11-30] MEDS ORDERED: FUROSEMIDE 20 MG in SYRINGE 0 ML IV ONE (13:00)
[2020-11-30 13:04] LABS: Albumin Level 2.5 gm/dl (3.4-5.0); BUN Creatinine Ratio 33.9 (10-20); C Reactive Protein 8.69 mg/dl (0-0.29); Calcium 8.6 mg/dl (8.5-10.1); Creatinine Clr Calc Pharmacy 39.8 ml/min; Est GFR (African American) 42.3 ml/min; Est GFR (Non-African American) 36.5 ml/min; Potassium 3.9 mmol/L (3.5-5.1)
[2020-11-30 13:06] LABS: Basophils # (auto) 0.02 K/uL (0-0.2); Basophils % (auto) 0.1 %; Eosinophils # (auto) 0.01 K/uL (0-0.5); Eosinophils % (auto) 0.1 %; Hematocrit (blood only) 39.3 % (42-52); Hemoglobin 13.3 g/dL (14.0-18.0); Immature Granulocytes # (auto) 0.18 K/uL (0.00-0.02); Immature Granulocytes % (auto) 1.1 %; Lymphocytes # (auto) 0.43 K/uL (1.2-3.4); Lymphocytes % (auto) 2.7 %; Mean Corpuscular Hemoglobin 30.2 pg (25-34); Mean Corpuscular Hgb Conc 33.8 g/dL (32-36); Mean Corpuscular Volume 89.3 fL (80-100); Mean Platelet Volume 12.6 fL (7.4-10.4); Monocytes # (auto) 1.03 K/uL (0.11-0.59); Monocytes % (auto) 6.4 %; Neutrophils # (auto) 14.47 K/uL (1.4-6.5); Neutrophils % (auto) 89.6 %; Platelet Count 182 K/uL (130-400); RDW Coefficient of Variation 14.3 % (11.5-14.5); RDW Standard Deviation 46.9 fL (36.4-46.3); White Blood Count 16.14 K/uL (4.8-10.8)
--- NOTE | 2020-11-30 13:07 | Billing Data ---
Date of Service November 30, 2020 Coding Level of Care Code 49658 Initial Inpt Care Lvl 3
[2020-11-30 13:09] LABS: Albumin Globulin Ratio 0.5 (0.9-2); Bilirubin,Total 0.6 mg/dl (0.2-1); Ferritin 1077.8 ng/ml (8-388); Globulin 5.3 gm/dl (2.5-4.0); Total Protein 7.8 gm/dl (6.4-8.2)
[2020-11-30 13:31] LABS: D Dimer 2140 ug/L FEU (0-500)
[2020-11-30] MEDS ORDERED: TOCILIZUMAB 800 MG in 0.9 % SODIUM CHLORIDE 60 ML IV ONE (14:00)
[2020-11-30] MEDS: ATORVASTATIN 20 MG TAB PO SCH (19:34)
[2020-12-01] MEDS: ALBUT/IPRATROP 3MG/0.5MG NEB 3 ML VIAL NEB SCH ×4 (07:22→19:37)
--- NOTE | 2020-12-01 07:39 | Hospitalist Progress Note ---
Date of Service December 01, 2020 Assessment & Plan (1) Pneumonia due to COVID-19 virus: 75 yo M w/ extensive vascular hx in ER for acute dyspnea and hypoxia, poor po intake, found to have worsening COVID pneumonia. recently discharged on 11/23 now is returned with declining status ,initial date of diagnosis 11/22. Had been sick for about a month and was treated with antibiotics Acute on chronic respiratory failure with hypoxia Acute hypoxic respiratory failure Worsening COVID19 Pneum[address] chest 11/29/20 Interval progression of the near diffuse groundglass airspace opacities. This may represent a viral pneumonia or a hypersensitivity pneumonitis. . Follow-up chest CT in 6 months recommended to ensure resolution. - [place] oxygen - received 10 mg iv decadron in ER, cont 6mg IV daily - not candidate for remdesivir/plasma due to timing of illness - airborne isolation precautions Tociluzimab ordered 11/30/20 Superimposed hospital associated pneumonia? - concern for HAP given recent hospitalization and acute decompensation Cefepime - procal 0.08, blood cultures pending - sputum culture pending COPD - continue spiriva daily - duonebs QID, decadron - flutter valve + incentive spirometry - guaifensin, encourage taking deep breaths and walking in room ad brigitte - sputum culture KULDIP on CKD - last Cr in [facility] system 11/2019 was 1.30, CrCl 56.05 - 1.62 today - overall will try to keep dry with covid pneumonia to improve oxygenation - Chronic Medical Conditions CAD: cont statin, asa PAD: cont plavix HTN: Continue holding lisinopril, lasix. cont isosorbide nitro, amlodipine patient is been without cardiac symptoms at this time BPH: Cont doxazosin, tamsulosin GERD: cont omeprazole Allergies: cont cetirizine, prn nasal steroid DVT ppx: covid lovenox ppx Full Code (2) Carotid artery stenosis: (3) Prediabetes: (4) Depression: (5) KAT on CPAP: Patient currently on high flow oxygen at a fairly high rates will likely use noninvasive positive pressure ventilation if he declines or appears to be fatigued (6) Hypercholesterolemia: (7) HLD (hyperlipidemia): (8) GERD (gastroesophageal reflux disease): (9) BPH (benign prostatic hyperplasia): (10) Stage 3b chronic kidney disease: (11) Hypoxia: Admission and Anticipated Discharge Date Admission Date: November 29, 2020 Subjective remains fairly breathless, otherwise is in no distress, with mild diarrhea and altered taste of food. [facility] Review of Systems Review of Systems: Moderate to severe respiratory distress and fatigue no headache, no visual changes no speech or swallowing issues loss of taste no chest pain, pressure or palpitations Significant shortness of breath and nonproductive cough no abdominal pain, nausea or vomiting, does have some mild diarrhea no dysuria, hematuria or frequency no focal joint pain or swelling no back pain, CVA tenderness or radicular pain no bruising, bleeding or rashes no focal signs of weakness or numbness or altered sensation no complaints of anxiety or depression.. Physical Exam Physical Exam: The patient appeared mild to moderate respiratory distress Vital signs as documented. Head exam is normocephalic atraumatic Neck is without JVD, thyromegaly, or carotid bruits. Lungs are lateral rales both lung cooney long-term up are more Cardiac exam, Rhythm is regular.. No murmurs, rubs or gallops. Abdominal exam reveals normal bowel sounds, soft non tender, no masses Extremities are nonedematous and both pedal pulses are present Neurologic exam is alert and oriented, no focal loss of strength or sensation Skin is without bruises or rashes Psychologically is without concerns for anxiety or depression Results & Data Results & Data ([facility]) Vital Signs (Past 12 Hours) Vital Signs Temp Pulse Pulse Resp BP BP Pulse Ox 12/01/20 07:22 42 L 24 91 12/01/20 03:20 65 25 H 90 12/01/20 03:17 98.1 F 44 L 18 104/61 90 12/01/20 01:15 45 L 22 117/60 92 11/30/20 23:47 57 L 11/30/20 23:00 98.8 F 60 18 113/68 93 11/30/20 22:21 53 L 28 H 96 11/30/20 19:47 59 L 22 92 PG Care Time/CCT Total # of Minutes Spent Total Time Spent with Patient: Total time spent is greater than 50% in coordination of care (as documented) at patient's floor/unit and/or counseling patient: Coding Level of Care Code 61432 Subseq Hosp Care Lvl 3 Diagnoses Pneumonia due to COVID-19 virus U07.1; J12.82 Carotid artery stenosis I65.29 Prediabetes R73.03 Depression F32.9 KAT on CPAP G47.33; Z99.89 Hypercholesterolemia E78.00 HLD (hyperlipidemia) E78.5 GERD (gastroesophageal reflux disease) K21.9 BPH (benign prostatic hyperplasia) N40.0 Stage 3b chronic kidney disease N18.32 Hypoxia R09.02
[2020-12-01] MEDS: dexAMETHasone 6 MG in SYRINGE 0 ML IV SCH (08:15)
[2020-12-01] MEDS: CETIRIZINE HCL 10 MG TABLET PO SCH (08:16)
[2020-12-01] MEDS: CEFEPIME 2,000 MG in SYRINGE 0 ML IV SCH (08:16)
[2020-12-01] MEDS: TAMSULOSIN HCL 0.4 MG CAP PO SCH (08:16)
[2020-12-01] MEDS: DOXAZOSIN MESYLATE 1 MG TAB PO SCH (08:16)
[2020-12-01] MEDS: CITALOPRAM 20 MG TAB PO SCH (08:16)
[2020-12-01] MEDS: ASPIRIN 81 MG ECTAB PO SCH (08:16)
[2020-12-01] MEDS: CLOPIDOGREL BISULFATE 75 MG TAB PO SCH (08:16)
[2020-12-01] MEDS: PANTOprazole 40 MG TAB PO SCH (08:16)
[2020-12-01] MEDS: ISOSORBIDE MONO EXTENDED REL 30 MG TABCR PO SCH (08:16)
[2020-12-01] MEDS: ENOXAPARIN INJ 40 MG/0.4 ML SYR SQ SCH ×2 (08:17→20:18)
[2020-12-01] MEDS: amLODIPine BESYLATE 5 MG TAB PO SCH (08:17)
[2020-12-01] MEDS: UMECLIDINIUM BROMIDE 62.5MCG/BLISTER 7 PUFFS/INHALER INH SCH (08:17)
[2020-12-01] MEDS: INSULIN ASPART 100 UNITS/ML 3 ML PEN SC SCH ×4 (09:21→20:18)
[2020-12-01] MEDS: ATORVASTATIN 20 MG TAB PO SCH (20:18)
[2020-12-02] MEDS: ALBUT/IPRATROP 3MG/0.5MG NEB 3 ML VIAL NEB SCH ×4 (07:01→19:24)
[2020-12-02] MEDS: ASPIRIN 81 MG ECTAB PO SCH (08:18)
[2020-12-02] MEDS: PANTOprazole 40 MG TAB PO SCH (08:18)
[2020-12-02] MEDS: DOXAZOSIN MESYLATE 1 MG TAB PO SCH (08:18)
[2020-12-02] MEDS: ENOXAPARIN INJ 40 MG/0.4 ML SYR SQ SCH (08:18)
[2020-12-02] MEDS: UMECLIDINIUM BROMIDE 62.5MCG/BLISTER 7 PUFFS/INHALER INH SCH (08:18)
[2020-12-02] MEDS: ISOSORBIDE MONO EXTENDED REL 30 MG TABCR PO SCH (08:19)
[2020-12-02] MEDS: TAMSULOSIN HCL 0.4 MG CAP PO SCH (08:19)
[2020-12-02] MEDS: CITALOPRAM 20 MG TAB PO SCH (08:19)
[2020-12-02] MEDS: CETIRIZINE HCL 10 MG TABLET PO SCH (08:19)
[2020-12-02] MEDS: amLODIPine BESYLATE 5 MG TAB PO SCH (08:19)
[2020-12-02] MEDS: CLOPIDOGREL BISULFATE 75 MG TAB PO SCH (08:19)
[2020-12-02] MEDS: INSULIN ASPART 100 UNITS/ML 3 ML PEN SC SCH ×3 (09:03→19:44)
[2020-12-02] MEDS: dexAMETHasone 6 MG in SYRINGE 0 ML IV SCH (09:21)
[2020-12-02 09:55] LABS: Eosinophils # (auto) 0.14 K/uL (0-0.5); Eosinophils % (auto) 1.1 %; Hematocrit (blood only) 37.3 % (42-52); Hemoglobin 12.6 g/dL (14.0-18.0); Immature Granulocytes # (auto) 0.11 K/uL (0.00-0.02); Immature Granulocytes % (auto) 0.8 %; Lymphocytes % (auto) 5.3 %; Mean Corpuscular Hemoglobin 30.1 pg (25-34); Mean Corpuscular Hgb Conc 33.8 g/dL (32-36); Mean Corpuscular Volume 89.2 fL (80-100); Mean Platelet Volume 12.1 fL (7.4-10.4); Monocytes # (auto) 0.61 K/uL (0.11-0.59); Monocytes % (auto) 4.6 %; Neutrophils # (auto) 11.63 K/uL (1.4-6.5); Neutrophils % (auto) 88.2 %; Platelet Count 174 K/uL (130-400); RDW Coefficient of Variation 13.9 % (11.5-14.5); RDW Standard Deviation 45.6 fL (36.4-46.3); Red Blood Count 4.18 M/uL (4.7-6.1); White Blood Count 13.19 K/uL (4.8-10.8)
[2020-12-02 10:17] LABS: BUN Creatinine Ratio 33.2 (10-20); C Reactive Protein 2.32 mg/dl (0-0.29); Calcium 8.5 mg/dl (8.5-10.1); Creatinine Clr Calc Pharmacy 29.5 ml/min; Est GFR (African American) 29.3 ml/min; Est GFR (Non-African American) 25.3 ml/min; Potassium 4.1 mmol/L (3.5-5.1)
[2020-12-02] MEDS ORDERED: ICU PROTOCOL FOR HYPERGLYCEMIA PRN (10:35)
[2020-12-02] MEDS ORDERED: RAPID SEQUENCE INDUCTION BAG ONE (10:46)
[2020-12-02] MEDS ORDERED: ATROPINE SULFATE 0.1 MG/ML 10ML SYR IV ONE (10:50)
[2020-12-02] MEDS ORDERED: DOPamine 400MG / 250ML D5W IV ONE (10:52)
[2020-12-02] MEDS ORDERED: MIDAZOLAM HCL 125MG/250ML D5W ONE (10:53)
[2020-12-02] MEDS ORDERED: SODIUM BICARB 8.4% INJ 50 MEQ/50 ML SYR IV ONE (11:06)
[2020-12-02] MEDS ORDERED: [UNRECOGNIZED DRUG - REMARK] PRN (11:24)
--- NOTE | 2020-12-02 12:17 | Critical Care Consultation ---
Date of Consultation December 02, 2020 Assessment & Plan (1) Acute hypoxemic respiratory failure: 75-year-old male with a history of coronary artery bypass grafting, peripheral vascular disease, asthma, CKD stage III and GERD presenting to the hospital due to worsening hypoxic respiratory failure thought to be secondary to COVID-19 illness. Acute hypoxic respiratory failure: Likely a sequelae of COVID-19 infection. He received tocilizumab on 11/30/2020. His CRP is trending downward. His initial symptoms began October 27. He has worsening groundglass opacities noted on chest x-ray and CT imaging. I am going to repeat a chest x-ray today. Continue Decadron at a dose of 6 mg daily. His is coming into the hospital and would like us to hold off intubation or mechanical ventilation until she arrives. I think this is reasonable at this time. Continue BiPAP therapy until her arrival. Intubation and mechanical ventilation is warranted at this time if the patient and his spouse are agreeable. I have asked the assistance of anesthesia if intubation is pursued. Anesthesia team is agreeable to intubate the patient if required. Diffuse groundglass opacities noted on CT chest: As above. Likely secondary to evolving COVID-19 illness. Volume overload may be playing a role as well. History of asthma and COPD: Continue bronchodilators. Acute kidney injury: Likely secondary to dehydration and insensible fluid losses from tachypnea. I am hesitant to give him any extra volume at this time given his profound hypoxemia. Will consult nephrology. Hold lisinopril and further diuretic therapy. He does have evidence of an anion gap acidosis. 1 amp of bicarbonate was given. Bradycardia: Unclear etiology. This may be related to hypoxia. Hemodynamically stable at this time. Hold AV bart blocking agents. VTE prophylaxis: We will switch Lovenox to heparin 5000 units twice times daily. CRITICAL CARE TIME - I have personally spent 30 minutes of critical care time in the direct management of this patient. This is a life/limb threatening event. This includes time spent evaluating patient, direct bedside care, chart review, placing orders, interpretation of diagnostic studies, discussion with consultants, patient, and family members, as well as other required patient management activities. This time is exclusive of all separately billable procedures, and teaching time and separate from and in addition to any other critical care service time. (2) Pneumonia due to COVID-19 virus: (3) Asthma with COPD: (4) Acute kidney injury due to COVID-19: (5) Bradycardia: History of Present Illness Reason for Consultation: Worsening hypoxemic respiratory failure Attending Physician: Jesse Antoine MD History of Present Illness 75-year-old male with a past medical history of CABG, peripheral vascular disease, hypertension, hyperlipidemia and GERD who was previously seen by me on pulmonary consultation. He is now transferred to the ICU due to worsening hypoxemic respiratory failure and the need for possible intubation and mechanical ventilation. He is currently requiring 100% FiO2 via high flow nasal cannula at 40 L/min. He notes worsening shortness of breath. He denies any cough. He feels fatigued. He certainly looks more lethargic and he did when I saw him on 11/30/2020. He did receive tocilizumab on 11/30/2020 his CRP has decreased. He is currently on Decadron 6 mg daily. He is also on Lasix 20 mg daily. His renal function has been worsening. He is +2 L in his input and output since hospital admission. Allergies Allergy/AdvReac Type Severity Reaction Status Date / Time Penicillins Allergy Severe PER PT Verified 11/29/20 15:53 ENDED UP IN HOSPITAL Home Medications Medication Instructions Recorded Confirmed Type amlodipine 10 mg PO DAILY 11/22/20 11/29/20 History aspirin 81 mg PO DAILY 11/22/20 11/29/20 History atorvastatin 20 mg PO HS 11/22/20 11/29/20 History cetirizine 10 mg PO DAILY 11/22/20 11/29/20 History citalopram 10 mg PO DAILY 11/22/20 11/29/20 History clopidogrel 75 mg PO DAILY 11/22/20 11/29/20 History doxazosin 1 mg PO DAILY 11/22/20 11/29/20 History furosemide 20 mg PO DAILY 11/22/20 11/29/20 History isosorbide mononitrate 30 mg PO DAILY 11/22/20 11/29/20 History lisinopril 10 mg PO DAILY 11/22/20 11/29/20 History omeprazole 20 mg PO DAILY 11/22/20 11/29/20 History tamsulosin 0.4 mg PO DAILY 11/22/20 11/29/20 History dexamethasone [Decadron] 6 mg PO DAILY #8 tab 11/23/20 11/29/20 Rx tiotropium bromide [Spiriva with 1 cap INHALATION DAILY #30 inh 11/23/20 11/29/20 Rx HandiHaler] azithromycin 250 mg PO DAILY 11/29/20 11/29/20 History Patient History Medical History Acute hypoxemic respiratory failure Agent orange exposure Allergic rhinitis CAD in [place] artery Claudication Herniated nucleus pulposus s/p surgical repair History of hypertension Left lumbar radiculopathy PAD (peripheral artery disease) Pneumonia due to COVID-19 virus Pulmonary nodule 2mm nodule , left upper lobe, 05/12/2017 Surgical History [place] [facility] [place] History of coronary artery bypass graft x3, [place]END[place] to LAD, left radial graft to obtuse marginal, and saphenous vein graft to posterior descending. 1999, [facility] [place] S[place]P [place] of iliac artery stent BL, 12/14/[place], [facility] 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 Beliefs That Will Affect Care: None Current Living Situation: Spouse Other Information That Helps Us Care for You: No Feels Safe at Home: Yes Assistive Devices: BiPap and Oxygen - Continuous Review of Systems Review of Systems: All systems reviewed & are unremarkable except as noted in HPI & below Physical Exam Constitutional: + ill appearing and + lethargic Eyes: PERRL, conjunctivae normal, anicteric sclerae Respiratory: + uses accessory muscles and + tachypneic; + not able to speak in complete sentence Auscultation: + crackles Cardiovascular: Rate/Rhythm: + bradycardic Heart Sounds: normal S1 and normal S2 Gastrointestinal (Abdomen): normal bowel sounds, soft, nontender, no hepatosplenomegaly Musculoskeletal: no cyanosis or clubbing, extremities motor strength 5/5 Skin: no rashes, warm and dry Neurologic: PERRL, EOMI, accommodation nl, no face palsy, no dysarthria Psychiatric: A+Ox3, euthymic affect Results & Data Results & Data ([facility]) Vital Signs (Past 12 Hours) Vital Signs Temp Pulse Pulse Resp BP BP BP 12/02/20 11:15 58 L 26 H 12/02/20 11:00 60 12/02/20 10:44 52 L 22 12/02/20 10:30 53 L 12/02/20 10:25 56 L 22 12/02/20 10:20 56 L 147/57 H 12/02/20 09:23 60 26 H 12/02/20 08:28 30 H 12/02/20 08:11 97.9 F 60 30 H 110/71 12/02/20 08:00 55 L 12/02/20 07:05 60 24 12/02/20 07:01 60 24 12/02/20 06:12 60 32 H 12/02/20 03:50 46 L 24 12/02/20 03:33 97.5 F L 45 L 24 116/68 Pulse Ox 12/02/20 11:15 92 12/02/20 11:00 90 12/02/20 10:44 91 12/02/20 10:30 91 12/02/20 10:25 92 12/02/20 10:20 93 12/02/20 09:23 92 12/02/20 08:28 12/02/20 08:11 91 12/02/20 08:00 12/02/20 07:05 92 12/02/20 07:01 92 12/02/20 06:12 92 12/02/20 03:50 90 12/02/20 03:33 91 Vital signs, labs and imaging reviewed Coding Level of Care Code Critical Care 1st 30-74 mins Diagnoses Acute hypoxemic respiratory failure J96.01 Pneumonia due to COVID-19 virus U07.1; J12.82 Asthma with COPD J44.9 Acute kidney injury due to COVID-19 U07.1; N17.9 Bradycardia R00.1 Time Spent (min) 30
--- NOTE | 2020-12-02 13:07 | Nephrology Consultation ---
Date of Consultation December 02, 2020 Assessment & Plan (1) Acute kidney injury due to COVID-19: * Stop Lisinopril * Place Sims catheter * Patient does have peripheral edema. Agree w/ cautious diuresis * Electrolyte balance is acceptable. No acute indication for CONDUCTOR YARD at this time * Monitor PRP (2) Stage 3b chronic kidney disease: * Baseline Cr 1.3, EGFR 56 cc/min ([facility] 12/16) (3) Pneumonia due to 2019 novel coronavirus: * On Decadron therapy * Received Tocilizumab (IL-6 inhibitor) 11/30/20 * ICU team planning intubation for airway support History of Present Illness Reason for Consultation: KULDIP/CKD Attending Physician: Jesse Antoine MD History of Present Illness Mr. Pascual is a 75 year old white male who is seen at the request of Dr. Richter for evaluation of KULDIP. Medical records in the EMR were reviewed today and are summarized as follows: Mr. Pascual has stage III CKD w/ baseline Cr 1.3, EGFR 56 cc/min ([facility] 12/16), HTN, ASCVD s/p CABG x3, aortic stenosis, PVD, KAT, asthma and COPD. On October 27, 2020 he tested + for COVID-19. He was hospitalized 11/22 & 11/23 for COVID pneumonia. He received Decadron, Azithromycin and IV hydration. Mr. Pascual presented to the ED 11/29/20 with progressive dyspnea and cough productive of sputum. Noncontrast chest CT revealed progression of bilateral ground glass infiltrates concerning for viral pneumonia. He has been admitted to the ICU and managed w/ Decadron and Tocilizumab (IL-6 inhibitor). IV diuresis was initiated to improve oxygenation. Cr has risen to 2.4. UO has not been recorded. Allergies Allergy/AdvReac Type Severity Reaction Status Date / Time Penicillins Allergy Severe PER PT Verified 11/29/20 15:53 ENDED UP IN HOSPITAL Home Medications Medication Instructions Recorded Confirmed Type amlodipine 10 mg PO DAILY 11/22/20 11/29/20 History aspirin 81 mg PO DAILY 11/22/20 11/29/20 History atorvastatin 20 mg PO HS 11/22/20 11/29/20 History cetirizine 10 mg PO DAILY 11/22/20 11/29/20 History citalopram 10 mg PO DAILY 11/22/20 11/29/20 History clopidogrel 75 mg PO DAILY 11/22/20 11/29/20 History doxazosin 1 mg PO DAILY 11/22/20 11/29/20 History furosemide 20 mg PO DAILY 11/22/20 11/29/20 History isosorbide mononitrate 30 mg PO DAILY 11/22/20 11/29/20 History lisinopril 10 mg PO DAILY 11/22/20 11/29/20 History omeprazole 20 mg PO DAILY 11/22/20 11/29/20 History tamsulosin 0.4 mg PO DAILY 11/22/20 11/29/20 History dexamethasone [Decadron] 6 mg PO DAILY #8 tab 11/23/20 11/29/20 Rx tiotropium bromide [Spiriva with 1 cap INHALATION DAILY #30 inh 11/23/20 11/29/20 Rx HandiHaler] azithromycin 250 mg PO DAILY 11/29/20 11/29/20 History Patient History Medical History (Updated 12/02/20 @ 12:14 by Reinier Richter MD) Acute hypoxemic respiratory failure Acute kidney injury due to COVID-19 Agent orange exposure Allergic rhinitis Bradycardia CAD in [place] artery Claudication Herniated nucleus pulposus s/p surgical repair History of hypertension Left lumbar radiculopathy PAD (peripheral artery disease) Pneumonia due to COVID-19 virus Pulmonary nodule 2mm nodule , left upper lobe, 05/12/2017 Surgical History H/O endarterectomy 12/12/2019, [facility] Dr. Bryant History of coronary artery bypass graft x3, ALMENDAREZ to LAD, left radial graft to obtuse marginal, and saphenous vein graft to posterior descending. 1999, [facility] Dr. Boyle S/P insertion of iliac artery stent BL, 12/14/2017, [facility] Dr. Bryant Family History Son Sudden Other Heart disease Hypertension Lung cancer Stroke Social History Smoking Status: Former smoker Cigarettes Per Day: 60; Second Hand Exposure: No; Hx Alcohol Use: Yes Alcohol type: hard liquor Hx Substance Use: No Preferred Language: [place] Communication Ability: Effective Geospatial Information Scientist Required: Yes Beliefs That Will Affect Care: None Current Living Situation: Spouse Other Information That Helps Us Care for You: No Feels Safe at Home: Yes Assistive Devices: BiPap and Oxygen - Continuous Review of Systems Review of Systems: Unobtainable due to cognitive status Physical Exam Constitutional: + ill appearing (opens eyes to tactile stimulus but is nonverbal and does not follow command) Eyes: PERRL, conjunctivae normal, anicteric sclerae Neck: trachea midline, no thyromegaly Respiratory: + respiratory distress Cardiovascular: Rate/Rhythm: + bradycardic Extremities: + edema (1+ pretibial pitting edema) Gastrointestinal (Abdomen): Inspection/Auscultation: + hypoactive bowel sounds Percussion/Palpation: abdomen soft Musculoskeletal: Extremities: no cyanosis Neurologic: + obtunded Results & Data ([facility]) Vital Signs (Past 12 Hours) Vital Signs Temp Pulse Pulse Resp BP BP BP 12/02/20 11:15 58 L 26 H 12/02/20 11:00 60 12/02/20 10:44 52 L 22 12/02/20 10:30 53 L 12/02/20 10:25 56 L 22 12/02/20 10:20 56 L 147/57 H 12/02/20 09:23 60 26 H 12/02/20 08:28 30 H 12/02/20 08:11 36.6 C 60 30 H 110/71 12/02/20 08:00 55 L 12/02/20 07:05 60 24 12/02/20 07:01 60 24 12/02/20 06:12 60 32 H 12/02/20 03:50 46 L 24 12/02/20 03:33 36.4 C L 45 L 24 116/68 Pulse Ox 12/02/20 11:15 92 12/02/20 11:00 90 12/02/20 10:44 91 12/02/20 10:30 91 12/02/20 10:25 92 12/02/20 10:20 93 12/02/20 09:23 92 12/02/20 08:28 12/02/20 08:11 91 12/02/20 08:00 12/02/20 07:05 92 12/02/20 07:01 92 12/02/20 06:12 92 12/02/20 03:50 90 12/02/20 03:33 91 Laboratory Tests 11/22/20 11/23/20 11/29/20 17:35 07:16 14:57 WBC Hgb Hct Plt Count Sodium Potassium Chloride Carbon Dioxide BUN Creatinine 2.20 H 1.99 H 1.62 H Glucose Urine Color Urine Appearance Urine pH Ur Specific Barco Urine Protein Urine Glucose (UA) Urine Ketones Urine Blood Urine Nitrite Urine WBC (Auto) Urine RBC (Auto) U Epithel Cells (Auto) 11/29/20 11/30/20 12/02/20 23:15 12:30 09:36 WBC 13.19 H Hgb 12.6 L Hct 37.3 L Plt Count 174 Sodium Potassium Chloride Carbon Dioxide BUN Creatinine 1.78 H Glucose Urine Color Yellow Urine Appearance Clear Urine pH 5.0 Ur Specific Barco 1.023 Urine Protein Trace H Urine Glucose (UA) Negative Urine Ketones Negative Urine Blood Negative Urine Nitrite Negative Urine WBC (Auto) 1-5 Urine RBC (Auto) 0-4 U Epithel Cells (Auto) 10-20 H 12/02/20 09:36 WBC Hgb Hct Plt Count Sodium 136 Potassium 4.1 Chloride 109 H Carbon Dioxide 17 L BUN 80 H Creatinine 2.41 H D Glucose 137 H Urine Color Urine Appearance Urine pH Ur Specific Barco Urine Protein Urine Glucose (UA) Urine Ketones Urine Blood Urine Nitrite Urine WBC (Auto) Urine RBC (Auto) U Epithel Cells (Auto) PG Care Time/CCT Total # of Minutes Spent Total Time Spent with Patient: Total time spent is greater than 50% in coordination of care (as documented) at patient's floor/unit and/or counseling patient: Coding Level of Care Code 20337 Inpt Consult Level 5 Diagnoses Acute kidney injury due to COVID-19 U07.1; N17.9 Stage 3b chronic kidney disease N18.32 Pneumonia due to 2019 novel coronavirus U07.1; J12.82
[2020-12-02] MEDS: fentaNYL DRIP 1,250 MCG/250 ML BAG IV SCH ×2 (13:45→21:42)
--- NOTE | 2020-12-02 14:04 | Anesthesiology Progress Note ---
Date of Service December 02, 2020 Assessment & Plan (1) Required emergent intubation: See ICU physician note for full details. In brief, patient with covid pneumonia and has had progressive respiratory failure. ICU team discussed with patient and about need for emergent intubation, both agreed. I was called to intubate patient in ICU with respiratory therapy support. Intubation Note Date and time of procedure: 12/02/2020. 1330 Indication for Intubation: Respiratory distress Consent: Informed consent obtained from the patient or designated proxy. The inherent risks, expected benefits, treatment alternatives, as well as the technical aspects of the procedure were discussed with the patient and a full explanation was given. Emergency procedure in life threatening situation consent implied Monitors Attached: EKG BP Pulse Oximetry CO2 Induction Medications: [14]mg Etomidate Paralytic Medication: [120]mg Succinylcholine Intubation Technique: Adequate preoxygenation RSI Equipment: Glidescope[3] View: Grade 1 Endotracheal Tube: Oral 8.0 with Stylet Procedure Details: ET tube was placed atraumatically on [1st] attempt. Balloon was inflated and the tube was secured at [23] cm. Placement was confirmed by auscultation and positive CO2 detection. Post-procedure: Pt hemodynamically stable throughout. Patient tolerated the procedure well without apparent complications. Post placement CXR ordered. Present on Admission?: No Admission and Anticipated Discharge Date Admission Date: November 29, 2020 Subjective Patient with covid pneumonia with worsening respiratory failure. Asked to intubate patient after ICU team discussed with patient and his . Physical Exam Vital Signs: Last Vital Signs Temp 36.6 C 12/02/20 08:11 Pulse 58 L 12/02/20 11:15 Resp 26 H 12/02/20 11:15 BP 147/57 H 12/02/20 10:20 Pulse Ox 92 12/02/20 11:15
[2020-12-02] MEDS ORDERED: VECURONIUM BROMIDE 10 MG VIAL IV ONE (14:08)
[2020-12-02] MEDS ORDERED: STAT IV Infusion **Titration per Protocol STA ×2 (14:12→14:13)
[2020-12-02] MEDS ORDERED: MIDAZOLAM BOLUS FROM BAG IV PRN (14:13)
[2020-12-02] MEDS ORDERED: MIDAZOLAM HCL 125 MG/250 ML BAG IV SCH (14:15)
[2020-12-02] MEDS: CISATRACURIUM BESYLATE 40 MG in 0.9 % SODIUM CHLORIDE 80 ML IV SCH ×2 (14:25→19:43)
--- NOTE | 2020-12-02 14:49 | XRay Report ---
XR chest 1V portable CLINICAL HISTORY: new intubation COMPARISON STUDY: Chest radiograph and chest CT November 29, 2020. FINDINGS: The tip of the endotracheal tube is 2 cm above the maury. Tip of nasogastric tube is obscu red but at least within the proximal stomach. There is no pneumothorax. Suspected small left pleural effusion is noted. Interstitial thickening and bilateral opacities, greater within the left lung are again noted. There are median sternotomy wires. Mediastinal surgical clips are noted. IMPRESSION: 1. Persistent extensive bilateral airspace opacities and interstitial thickening, greater within the left lung. The findings favor an infectious process. Asymmetric pulmonary edema could appear similar but is considered less likely. 2. Satisfactory positioning of the endotracheal tube. ACT 112: Negative or not required by law. Electronically signed by: Jeff Salinas M.D. 12/02/2020 2:47 PM
[2020-12-02] MEDS ORDERED: VECURONIUM BROMIDE 10 MG VIAL IV STA (15:10)
[2020-12-02] MEDS ORDERED: POLYETHYLENE (MIRALAX) 17 GM PACK NG PRN (15:45)
[2020-12-02] MEDS ORDERED: MAGNESIUM HYDROXIDE SUSP 30 ML UDC NG PRN (15:45)
--- NOTE | 2020-12-02 16:04 | Procedure Note ---
Procedure Note Date of Service December 02, 2020 Note INTERNAL JUGULAR CENTRAL LINE PROCEDURE NOTE: Procedure: Internal Jugular Central Line Placement Indication: Central Drug Administration, Poor Venous Access, Multiple Lab Draws Necessary, etc. Anesthesia: Continuous Versed and propofol were infusing/8 mL lidocaine 1% Consent was signed and placed on the chart prior to procedure. Indication, risks, and benefits were explained at length. A time-out was completed verifying correct patient, procedure, site, positioning, and implants(s) or special equipment if applicable. Patients right neck was cleansed and draped in the typical sterile fashion using Chloraprep. The Internal Jugular Vein and Carotid Artery were identified using ultrasound. The superficial tissue was anesthetized using 8 mL of 1% lidocaine without epinephrine under direct visualization with the ultrasound. After adequate anesthetization was achieved, the Internal Jugular vein was cannulated under direct ultrasound guidance using an introducer needle on a syringe. Good venous blood return was maintained prior to removal of syringe from introducer needle. Using Seldinger Technique, a guide wire was advanced through the introducer needle without resistance. The introducer needle was removed and ultrasound images were obtained of the guide wire within the Internal Jugular Vein and saved to the patients medical record. A small incision was made in penetrating fashion at the guide wire insertion site utilizing an 11 blade scalpel. The dilator was advanced to the vessel without resistance. The dilator was exchanged for the triple lumen catheter which was advanced into the vessel without resistance. The guide wire was removed intact from the catheter without issue. Claves were placed on each catheter tip with confirmation of good blood flow from each lumen. Each port was easily flushed with sterile saline. The catheter was placed at 15 cm and sut[address] in place. BioPatch was applied to the catheter and a sterile Tegaderm dressing was applied over the catheter with careful attention to sterility. Patient tolerated procedure well. No immediate complications were met. Post procedure x-ray was completed, placement was appropriate and no pneumothorax was noted. Images obtained are saved for permanent record Coding CPT Codes Tubes, Drains, and Vasc Access - Tubes, Drains, and Vasc Access: [id number] Place catheter in vein superior or inferior vena cava ([id number]) Tubes, Drains, and Vasc Access - Tubes, Drains, and Vasc Access: [id number] Ultrasound Guidance For Vascular ([id number]) [facility] Procedure Codes (Charges) Tubes, Drains, and Vasc Access Procedure 1: Tubes, Drains, and Vasc Access: [id number] Place catheter in vein superior or inferior vena cava Procedure 2: Tubes, Drains, and Vasc Access: [id number] Ultrasound Guidance For Vascular
--- NOTE | 2020-12-02 16:05 | Procedure Note ---
Procedure Note Date of Service December 02, 2020 Note ARTERIAL LINE PROCEDURE NOTE: Procedure: Arterial Line Placement Indication: Monitoring on Pressors Anesthesia: Continuous propofol and fentanyl infusing Consent was signed and placed on the chart prior to procedure. Indication, risks, and benefits were explained at length. A time-out was completed verifying correct patient, procedure, site, positioning, and implant(s) or special equipment if applicable. Patients right wrist was prepped and draped in the usual sterile fashion. Ultrasound guidance was used to aid needle placement. A 20g Arrow arterial line was introduced into the right radial artery. Catheter was threaded, and the needle was removed with appropriate blood return. Good waveform was observed. The patient tolerated the procedure well. Blood Loss: Minimal Complications: None Coding CPT Codes Tubes, Drains, and Vasc Access - Tubes, Drains, and Vasc Access: [id number] Place Catheter In Artery ([id number]) Tubes, Drains, and Vasc Access - Tubes, Drains, and Vasc Access: [id number] Ultrasonic Guide For Needle Placement ([id number]) [facility] Procedure Codes (Charges) Tubes, Drains, and Vasc Access Procedure 3: Tubes, Drains, and Vasc Access: [id number] Place Catheter In Artery Procedure 5: Tubes, Drains, and Vasc Access: [id number] Ultrasonic Guide For Needle Placement
--- NOTE | 2020-12-02 16:16 | Hospitalist Progress Note ---
Date of Service December 02, 2020 Assessment & Plan (1) Pneumonia due to COVID-19 virus: 75 yo M w/ extensive vascular hx in ER for acute dyspnea and hypoxia, poor po intake, found to have worsening COVID pneumonia. recently discharged on 11/23 now is returned with declining status ,initial date of diagnosis 11/22. Had been sick for about a month and was treated with antibiotics Acute on chronic respiratory failure with hypoxia Acute hypoxic respiratory failure progressed to require intubation 12/02/[address] chest 11/29/20 Interval progression of the near diffuse groundglass airspace opacities. This may represent a viral pneumonia or a hypersensitivity pneumonitis. . Follow-up chest CT in 6 months recommended to ensure resolution. -no intibated on ventilator - received 10 mg iv decadron in ER, cont 6mg IV daily - not candidate for remdesivir/plasma due to timing of illness, first started getting sick early october - airborne isolation precautions Tociluzimab ordered 11/30/20 will be on antibiotics to cover for possible secondary infection will need to cover for HAP, cefepime and azithro Superimposed hospital associated pneumonia? - concern for HAP given recent hospitalization and acute decompensation Cefepime and azithro - procal 0.08, blood cultures pending - sputum culture pending COPD - continue spiriva daily - duonebs QID, decadron - KULDIP on CKD - last Cr in [facility] system 11/2019 was 1.30, CrCl 56.05 - did have elevation of cr with recent decline in condition - Chronic Medical Conditions CAD: cont statin, asa PAD: cont plavix HTN: Continue holding lisinopril, lasix. cont isosorbide nitro, amlodipine patient is been without cardiac symptoms at this time BPH: Cont doxazosin, tamsulosin GERD: cont omeprazole Allergies: cont cetirizine, prn nasal steroid DVT ppx: covid heparin ppx for renal failure Full Code (2) Carotid artery stenosis: (3) Prediabetes: (4) Depression: (5) KAT on CPAP: now intubated (6) Hypercholesterolemia: (7) HLD (hyperlipidemia): (8) GERD (gastroesophageal reflux disease): (9) BPH (benign prostatic hyperplasia): (10) Stage 3b chronic kidney disease: (11) Hypoxia: Admission and Anticipated Discharge Date Admission Date: November 29, 2020 Subjective Patient with covid pneumonia with worsening respiratory failure. Intubated by Anesthesia, sedated and paralysed daughter and son updated Review of Systems Review of Systems: Unobtainable due to endotracheal tube Physical Exam Physical Exam: The patient appeared mortally ill Vital signs as documented. hypotension did require dopamine Head exam is normocephalic atraumatic Neck is without JVD, thyromegaly, or carotid bruits. Lungs coarse bilaterally and poor air movement Cardiac exam, bradycardic Abdominal exam reveals normal bowel sounds, soft non tender, no masses Extremities are nonedematous and both pedal pulses are present Neurologic exam is sedated Results & Data Results & Data ([facility]) Vital Signs (Past 12 Hours) Vital Signs Temp Pulse Pulse Resp BP BP Pulse Ox 12/02/20 15:44 67 24 93 12/02/20 14:00 60 24 91 12/02/20 11:15 58 L 26 H 92 12/02/20 11:00 60 90 12/02/20 10:44 52 L 22 91 12/02/20 10:30 53 L 91 12/02/20 10:25 56 L 22 92 12/02/20 10:20 56 L 147/57 H 93 12/02/20 09:23 60 26 H 92 12/02/20 08:28 30 H 12/02/20 08:11 97.9 F 60 30 H 110/71 91 12/02/20 08:00 55 L 12/02/20 07:05 60 24 92 12/02/20 07:01 60 24 92 12/02/20 06:12 60 32 H 92 PG Care Time/CCT Total # of Minutes Spent Total Time Spent with Patient: Total time spent is greater than 50% in coordination of care (as documented) at patient's floor/unit and/or counseling patient: Coding Level of Care Code 20982 Subseq Hosp Care Lvl 3 Diagnoses Pneumonia due to COVID-19 virus U07.1; J12.82 Carotid artery stenosis I65.29 Prediabetes R73.03 Depression F32.9 KAT on CPAP G47.33; Z99.89 Hypercholesterolemia E78.00 HLD (hyperlipidemia) E78.5 GERD (gastroesophageal reflux disease) K21.9 BPH (benign prostatic hyperplasia) N40.0 Stage 3b chronic kidney disease N18.32 Hypoxia R09.02
[2020-12-02 16:46] LABS: iSTAT Arterial Blood Gas HCO3 20 meg/L (19-24); iSTAT Arterial Blood Gas pCO2 47 mmHg (35-46); iSTAT Arterial Blood Gas pH 7.23 (7.35-7.45); iSTAT Arterial Blood Gas pO2 93 mmHg (80-95); iSTAT Carbon Dioxide 21 mmol/L (24-31); iSTAT FiO2 100 %; iSTAT Site Art Line
[2020-12-02] MEDS ORDERED: STAT IV STA (16:57)
--- NOTE | 2020-12-02 16:57 | XRay Report ---
XR CHEST 1V PORTABLE SUPINE CLINICAL HISTORY: s/p right IJ cvl placement COMPARISON STUDY: Chest radiograph December 02, 2020 at 1:48 PM. FINDINGS: There is no pneumothorax following placement of a right internal jugular central line. Cath eter tip projects over the cavoatrial junction. Tip of endotracheal tube is 1.2 cm above the maury. Nasogastric tube tip is within the gastric fundus. Bilateral opacities and interstitial thickening, g reater within the left lung, persist. IMPRESSION: 1. No pneumothorax following placement of a right internal jugular central line. 2. Tip of endotracheal tube 1.2 cm above the maury. 3. Persistent bilateral airspace opacities and interstitial thickening, greater within the left lung. ACT 112: Negative or not required by law. Electronically signed by: Jeff Salinas M.D. 12/02/2020 4:56 PM
[2020-12-02] MEDS ORDERED: CEFEPIME 1,000 MG in SYRINGE 0 ML IV SCH (17:00)
[2020-12-02] MEDS ORDERED: AZITHROMYCIN 500 MG in DEXTROSE 5% 250 ML IV SCH (17:00)
[2020-12-02 17:09] LABS: Calcium 8.1 mg/dl (8.5-10.1); Creatinine Clr Calc Pharmacy 31.5 ml/min; Est GFR (African American) 31.7 ml/min; Est GFR (Non-African American) 27.4 ml/min; Potassium 5.1 mmol/L (3.5-5.1)
[2020-12-02] MEDS: SODIUM BICARBONATE 8.4% 150 MEQ in DEXTROSE 5% 1,000 ML IV SCH (17:20)
[2020-12-02] MEDS ORDERED: INSULIN ASPART 100 UNITS/ML 3 ML PEN SC SCH (18:00)
[2020-12-02] MEDS ORDERED: PHARMACY GLYCEMIC MGMT CONSULT PRN (19:24)
[2020-12-02] MEDS ORDERED: INSULIN GLARGINE SOLOSTAR 100 UNITS/ML 3 ML PEN SC SCH (20:00)
[2020-12-02] MEDS: HEPARIN SOD 5,000 UNIT/0.5 ML VIAL SQ SCH (20:03)
[2020-12-02 20:07] LABS: Hematocrit (blood only) 35.6 % (42-52); Hemoglobin 11.9 g/dL (14.0-18.0)
[2020-12-02] MEDS ORDERED: ATORVASTATIN 20 MG TAB NG SCH (21:00)
[2020-12-02] MEDS ORDERED: FAMOTIDINE 20 MG in SYRINGE 3 ML IV SCH (21:00)
[2020-12-02] MEDS ORDERED: INSULIN ASPART 100 UNITS/ML 3 ML PEN SC ONE (22:15)
[2020-12-03] MEDS: INSULIN ASPART 100 UNITS/ML 3 ML PEN SC SCH ×4 (00:45→11:29)
[2020-12-03] MEDS: CISATRACURIUM BESYLATE 40 MG in 0.9 % SODIUM CHLORIDE 80 ML IV SCH ×2 (02:59→09:12)
[2020-12-03 04:27] LABS: iSTAT Art Bld Gas pCO2 Correct 48 mmHg (35-46); iSTAT Art Bld Gas pH Corrected 7.291 (7.35-7.45); iSTAT Arterial Blood Gas HCO3 23 meg/L (19-24); iSTAT Arterial Blood Gas pCO2 49 mmHg (35-46); iSTAT Arterial Blood Gas pH 7.28 (7.35-7.45); iSTAT Arterial Blood Gas pO2 106 mmHg (80-95); iSTAT Arterial Blood Gas pO2 C 102; iSTAT Carbon Dioxide 25 mmol/L (24-31); iSTAT FiO2 10 %; iSTAT Hematocrit 33 % (42-52); iSTAT Hemoglobin 11.2 g/dl (14.0-18.0); iSTAT Potassium 4.3 mmol/L (3.3-5.0); iSTAT Site Art Line; iSTAT Sodium 137 mmol/L (135-144)
[2020-12-03 05:45] LABS: Calcium 7.5 mg/dl (8.5-10.1); Creatinine Clr Calc Pharmacy 34.6 ml/min; Est GFR (African American) 35.9 ml/min; Magnesium 2.7 mg/dl (1.8-2.4); Phosphorus 4.9 mg/dl (2.5-4.9); Potassium 4.4 mmol/L (3.5-5.1)
[2020-12-03] MEDS: ALBUT/IPRATROP 3MG/0.5MG NEB 3 ML VIAL NEB SCH ×2 (07:24→11:46)
[2020-12-03] MEDS: SODIUM BICARBONATE 8.4% 150 MEQ in DEXTROSE 5% 1,000 ML IV SCH (07:47)
[2020-12-03] MEDS: dexAMETHasone 6 MG in SYRINGE 0 ML IV SCH (08:03)
[2020-12-03 08:35] LABS: Eosinophils # (auto) 0.02 K/uL (0-0.5); Eosinophils % (auto) 0.2 %; Hematocrit (blood only) 33.8 % (42-52); Hemoglobin 11.2 g/dL (14.0-18.0); Immature Granulocytes # (auto) 0.13 K/uL (0.00-0.02); Immature Granulocytes % (auto) 1.1 %; Lymphocytes # (auto) 0.48 K/uL (1.2-3.4); Lymphocytes % (auto) 4.1 %; Mean Corpuscular Hemoglobin 29.4 pg (25-34); Mean Corpuscular Hgb Conc 33.1 g/dL (32-36); Mean Corpuscular Volume 88.7 fL (80-100); Mean Platelet Volume 12.5 fL (7.4-10.4); Monocytes # (auto) 0.68 K/uL (0.11-0.59); Monocytes % (auto) 5.8 %; Neutrophils # (auto) 10.36 K/uL (1.4-6.5); Neutrophils % (auto) 88.8 %; Platelet Count 165 K/uL (130-400); RDW Coefficient of Variation 14.1 % (11.5-14.5); RDW Standard Deviation 45.3 fL (36.4-46.3); Red Blood Count 3.81 M/uL (4.7-6.1); White Blood Count 11.67 K/uL (4.8-10.8)
[2020-12-03] MEDS ORDERED: ASPIRIN 81 MG CHEW NG SCH (09:00)
[2020-12-03] MEDS ORDERED: CITALOPRAM 20 MG TAB NG SCH (09:00)
[2020-12-03] MEDS ORDERED: amLODIPine BESYLATE 5 MG TAB NG SCH (09:00)
[2020-12-03] MEDS ORDERED: DOXAZOSIN MESYLATE 1 MG TAB NG SCH (09:00)
[2020-12-03] MEDS ORDERED: ICU PROTOCOL FOR HYPERGLYCEMIA SCH (09:00)
--- NOTE | 2020-12-03 09:02 | Nephrology Progress Note ---
Date of Service December 03, 2020 Assessment & Plan (1) Acute kidney injury due to COVID-19: * Nonoliguric (1950 cc UO). I&O's matched last 24 hours * Cr improved from 2.4 --> 2.0 * Electrolyte balance is acceptable * Serum bicarbonate within acceptable limits. Patient w/ peripheral edema. Will stop NaHCO3 gtt * No acute indication for GRANITE POLISHER at this time * Monitor PRP (2) Stage 3b chronic kidney disease: * Baseline Cr 1.3, EGFR 56 cc/min ([facility] [place] 12/16) (3) Pneumonia due to 2019 novel coronavirus: * On Decadron therapy * Received Tocilizumab (IL-6 inhibitor) 11/30/20 * Mechanically ventilated. SaO2 91% on 50% FiO2 this am Admission and Anticipated Discharge Date Admission Date: November 29, 2020 Subjective Sedated, mechanically ventilated. Plan of care reviewed w/ ICU team this am Review of Systems Review of Systems: Unobtainable due to endotracheal tube Physical Exam Constitutional: + ill appearing Eyes: PERRL, conjunctivae normal, anicteric sclerae Neck: trachea midline, no thyromegaly Respiratory: coarse breath sound bilaterally Cardiovascular: Rate/Rhythm: regular rate and regular rhythm Extremities: + edema (1+ pretibial pitting edema) Gastrointestinal (Abdomen): Inspection/Auscultation: + hypoactive bowel sounds Percussion/Palpation: abdomen soft Musculoskeletal: Extremities: no cyanosis Neurologic: + obtunded Results & Data ([facility]) Vital Signs (Past 12 Hours) Vital Signs Temp Pulse Pulse Resp BP Pulse Ox 12/03/20 07:49 60 24 91 12/03/20 07:46 60 24 91 12/03/20 06:30 36.4 C L 58 L 94 12/03/20 05:07 36.4 C L 60 81/44 L 90 12/03/20 04:49 36.3 C L 58 L 85/42 L 90 12/03/20 04:00 75 128/57 L 12/03/20 03:49 36.2 C L 75 128/57 L 95 12/03/20 03:45 77 24 94 12/03/20 02:49 36.3 C L 62 119/52 L 95 12/03/20 01:49 36.1 C L 57 L 93/46 L 93 12/03/20 00:49 35.8 C L 56 L 105/46 L 95 12/03/20 00:45 56 L 12/03/20 00:00 56 L 12/02/20 23:49 35.4 C L 55 L 103/48 L 96 12/02/20 23:30 57 L 113/39 L 12/02/20 23:02 35.1 C L 53 L 86/42 L 95 12/02/20 22:49 35.0 C L 59 L 78/41 L 95 12/02/20 22:34 34.9 C L 55 L 78/40 L 95 12/02/20 22:30 54 L 24 96 12/02/20 22:19 34.9 C L 59 L 112/53 L 96 12/02/20 22:04 34.8 C L 56 L 113/53 L 96 12/02/20 21:49 34.8 C L 56 L 114/54 L 96 12/02/20 21:34 34.8 C L 57 L 114/51 L 96 12/02/20 21:19 34.8 C L 60 111/52 L 96 12/02/20 21:04 34.8 C L 58 L 117/52 L 97 Laboratory Tests 12/03/20 12/03/20 04:01 05:08 POC Hgb 11.2 L POC Hct 33 L Sodium 140 Potassium 4.4 Chloride 109 H Carbon Dioxide 24 BUN 71 H Creatinine 2.04 H Glucose 115 H Calcium 7.5 L Magnesium 2.7 H PG Care Time/CCT Total # of Minutes Spent Total Time Spent with Patient: Total time spent is greater than 50% in coordination of care (as documented) at patient's floor/unit and/or counseling patient: Coding Level of Care Code 06271 Subseq Hosp Care Lvl 3 Diagnoses Acute kidney injury due to COVID-19 U07.1; N17.9 Stage 3b chronic kidney disease N18.32 Pneumonia due to 2019 novel coronavirus U07.1; J12.82
--- NOTE | 2020-12-03 10:09 | XRay Report ---
XR chest 1V portable HISTORY: 75 years-old Male intubation acute respiratory failure COMPARISON: 12/02/2020, chest CT 11/29/2020 TECHNIQUE: Portable semierect AP view of the chest FINDINGS: Endotracheal tube overlies the midline, 3.2 cm superior to the maury. Enteric tube courses below the diaphragm with distal tip directed superiorly in the region of the gastric fundus. Right IJ central venous catheter distal tip is noted in the expected location of the mid to inferior SVC. Prior median sternotomy with mediastinal surgical clips suggestive of prior CABG. Cardiac silhouette is enlarged. No pneumothorax. Trace pleural effusions. There are persistent mixed interstitial and alveolar opaci ties, left greater than right with mildly progressed airspace consolidation of the left lung. Degener ative changes of the shoulders and spine. IMPRESSION: 1. Lines and tubes as above. 2. Mildly progressed left greater than right mixed interstitial and alveolar opacities with trace ple ural effusions. ACT 112: Negative or not required by law. The above report was generated using voice recognition software. It may contain grammatical, syntax o r spelling errors. Electronically signed by: Medardo Mejia M.D. 12/03/2020 10:07 AM
--- NOTE | 2020-12-03 10:16 | Hospitalist Progress Note ---
Date of Service December 03, 2020 Assessment & Plan (1) Pneumonia due to COVID-19 virus: 75 yo M w/ extensive vascular hx in ER for acute dyspnea and hypoxia, poor po intake, found to have worsening COVID pneumonia. recently discharged on 11/23 now is returned with declining status ,initial date of diagnosis 11/22. Had been sick for about a month and was treated with antibiotics Acute on chronic respiratory failure with hypoxia Acute hypoxic respiratory failure progressed to require intubation 12/02/[address] chest 11/29/20 Interval progression of the near diffuse groundglass airspace opacities. This may represent a viral pneumonia or a hypersensitivity pneumonitis. . Follow-up chest CT in 6 months recommended to ensure resolution. -no intibated on ventilator - received 10 mg iv decadron in ER, cont 6mg IV daily - not candidate for remdesivir/plasma due to timing of illness, first started getting sick early october - airborne isolation precautions Tociluzimab ordered 11/30/20 will be on antibiotics to cover for possible secondary infection will need to cover for HAP, cefepime and azithro Superimposed hospital associated pneumonia? - concern for HAP given recent hospitalization and acute decompensation Cefepime and azithro - procal 0.08, blood cultures pending - sputum culture pending COPD - continue spiriva daily - duonebs QID, decadron - KULDIP on CKD - last Cr in [facility] system 11/2019 was 1.30, CrCl 56.05 - did have elevation of cr with recent decline in condition - Chronic Medical Conditions CAD: cont statin, asa PAD: cont plavix HTN: Continue holding lisinopril, lasix. cont isosorbide nitro, amlodipine patient is been without cardiac symptoms at this time BPH: Cont doxazosin, tamsulosin GERD: cont omeprazole Allergies: cont cetirizine, prn nasal steroid DVT ppx: covid heparin ppx for renal failure Full Code (2) Carotid artery stenosis: (3) Prediabetes: (4) Depression: (5) KAT on CPAP: now intubated (6) Hypercholesterolemia: (7) HLD (hyperlipidemia): (8) GERD (gastroesophageal reflux disease): (9) BPH (benign prostatic hyperplasia): (10) Stage 3b chronic kidney disease: (11) Hypoxia: Admission and Anticipated Discharge Date Admission Date: November 29, 2020 Subjective see discharge summary Physical Exam Constitutional: well developed, well nourished and + mechanically ventilated Respiratory: symmetric chest movement Auscultation: lungs clear to auscultation bilaterally Cardiovascular: RRR, no murmur, no edema Gastrointestinal (Abdomen): Inspection/Auscultation: abdomen normal to inspection and normal bowel sounds Percussion/Palpation: abdomen soft Skin: no rashes, warm and dry Neurologic: CN's II-XI intact bilaterally and + obtunded; no focal motor deficits Results & Data Results & Data ([facility]) Vital Signs (Past 12 Hours) Vital Signs Temp Pulse Pulse Resp BP Pulse Ox 12/03/20 07:49 60 24 91 12/03/20 07:46 60 24 91 12/03/20 06:30 36.4 C L 58 L 94 12/03/20 05:07 36.4 C L 60 81/44 L 90 12/03/20 04:49 36.3 C L 58 L 85/42 L 90 12/03/20 04:00 75 128/57 L 12/03/20 03:49 36.2 C L 75 128/57 L 95 12/03/20 03:45 77 24 94 12/03/20 02:49 36.3 C L 62 119/52 L 95 12/03/20 01:49 36.1 C L 57 L 93/46 L 93 12/03/20 00:49 35.8 C L 56 L 105/46 L 95 12/03/20 00:45 56 L 12/03/20 00:00 56 L 12/02/20 23:49 35.4 C L 55 L 103/48 L 96 12/02/20 23:30 57 L 113/39 L 12/02/20 23:02 35.1 C L 53 L 86/42 L 95 12/02/20 22:49 35.0 C L 59 L 78/41 L 95 12/02/20 22:34 34.9 C L 55 L 78/40 L 95 12/02/20 22:30 54 L 24 96 12/02/20 22:19 34.9 C L 59 L 112/53 L 96 Laboratory Results Laboratory Results - last 24 hr 12/02/20 12/02/20 12/02/20 09:36 14:29 16:26 WBC RBC Hgb POC Hgb Hct POC Hct MCV MCH MCHC RDW Std Deviation RDW Coeff of Shahab Plt Count MPV Immature Gran % (Auto) Neut % (Auto) Lymph % (Auto) Brooke % (Auto) Eos % (Auto) Baso % (Auto) Neut # (Auto) Lymph # (Auto) Brooke # (Auto) Eos # (Auto) Baso # (Auto) Immature Gran # (Auto) Sample Site POC pH POC pCO2 POC pO2 POC HCO3 POC Total CO2 POC Base Excess ABG pH (Temp Correct) ABG pCO2 (Temp Corrct POC ABG pO2 at Pt Temp POC ABG O2 Sat Humphrey Test O2 Delivery Device POC O2 Rate Minute Ventilation POC FiO2 Tidal Volume PEEP POC Sodium Sodium 136 137 POC Potassium Potassium 4.1 5.1 D Chloride 109 H 107 Carbon Dioxide 17 L 18 L Anion Gap 10.0 12.0 H BUN 80 H 84 H Creatinine 2.41 H D 2.26 H Est Cr Clr Drug Dosing 29.5 31.5 Est GFR ( Amer) 29.3 31.7 Est GFR (Non-Af Amer) 25.3 27.4 BUN/Creatinine Ratio 33.2 H 37.0 H Glucose 137 H 204 H POC Glucose 144 H Calcium 8.5 8.1 L Phosphorus Magnesium C-Reactive Protein 2.32 H Nasal Screen MRSA (PCR) 12/02/20 12/02/20 12/02/20 16:27 18:04 19:38 WBC RBC Hgb POC Hgb Hct POC Hct MCV MCH MCHC RDW Std Deviation RDW Coeff of Shahab Plt Count MPV Immature Gran % (Auto) Neut % (Auto) Lymph % (Auto) Brooke % (Auto) Eos % (Auto) Baso % (Auto) Neut # (Auto) Lymph # (Auto) Brooke # (Auto) Eos # (Auto) Baso # (Auto) Immature Gran # (Auto) Sample Site Art Line POC pH 7.23 L POC pCO2 47 H POC pO2 93 POC HCO3 20 POC Total CO2 21 L POC Base Excess -8.0 ABG pH (Temp Correct) ABG pCO2 (Temp Corrct POC ABG pO2 at Pt Temp POC ABG O2 Sat 96.0 H Humphrey Test NA O2 Delivery Device Ventilator POC O2 Rate 24 Minute Ventilation 9.6 POC FiO2 100 Tidal Volume 400 PEEP 16 POC Sodium Sodium POC Potassium Potassium Chloride Carbon Dioxide Anion Gap BUN Creatinine Est Cr Clr Drug Dosing Est GFR ( Amer) Est GFR (Non-Af Amer) BUN/Creatinine Ratio Glucose POC Glucose 240 H 262 H Calcium Phosphorus Magnesium C-Reactive Protein Nasal Screen MRSA (PCR) 12/02/20 12/02/20 12/03/20 19:45 22:01 00:28 WBC RBC Hgb 11.9 L POC Hgb Hct 35.6 L POC Hct MCV MCH MCHC RDW Std Deviation RDW Coeff of Shahab Plt Count MPV Immature Gran % (Auto) Neut % (Auto) Lymph % (Auto) Brooke % (Auto) Eos % (Auto) Baso % (Auto) Neut # (Auto) Lymph # (Auto) Brooke # (Auto) Eos # (Auto) Baso # (Auto) Immature Gran # (Auto) Sample Site POC pH POC pCO2 POC pO2 POC HCO3 POC Total CO2 POC Base Excess ABG pH (Temp Correct) ABG pCO2 (Temp Corrct POC ABG pO2 at Pt Temp POC ABG O2 Sat Humphrey Test O2 Delivery Device POC O2 Rate Minute Ventilation POC FiO2 Tidal Volume PEEP POC Sodium Sodium POC Potassium Potassium Chloride Carbon Dioxide Anion Gap BUN Creatinine Est Cr Clr Drug Dosing Est GFR ( Amer) Est GFR (Non-Af Amer) BUN/Creatinine Ratio Glucose POC Glucose 230 H 186 H Calcium Phosphorus Magnesium C-Reactive Protein Nasal Screen MRSA (PCR) 12/03/20 12/03/20 12/03/20 04:01 04:21 04:59 WBC RBC Hgb POC Hgb 11.2 L Hct POC Hct 33 L MCV MCH MCHC RDW Std Deviation RDW Coeff of Shahab Plt Count MPV Immature Gran % (Auto) Neut % (Auto) Lymph % (Auto) Brooke % (Auto) Eos % (Auto) Baso % (Auto) Neut # (Auto) Lymph # (Auto) Brooke # (Auto) Eos # (Auto) Baso # (Auto) Immature Gran # (Auto) Sample Site Art Line POC pH 7.28 L POC pCO2 49 H POC pO2 106 H POC HCO3 23 POC Total CO2 25 POC Base Excess -3.0 ABG pH (Temp Correct) 7.291 L ABG pCO2 (Temp Corrct 48 H POC ABG pO2 at Pt Temp 102 POC ABG O2 Sat 97.0 H Humphrey Test NA O2 Delivery Device Ventilator POC O2 Rate 24 Minute Ventilation POC FiO2 10 Tidal Volume 400 PEEP 16 POC Sodium 137 Sodium POC Potassium 4.3 Potassium Chloride Carbon Dioxide Anion Gap BUN Creatinine Est Cr Clr Drug Dosing Est GFR ( Amer) Est GFR (Non-Af Amer) BUN/Creatinine Ratio Glucose POC Glucose 127 H Calcium Phosphorus Magnesium C-Reactive Protein Nasal Screen MRSA (PCR) Negative 12/03/20 12/03/20 12/03/20 05:08 05:10 07:26 WBC 11.67 H RBC 3.81 L Hgb 11.2 L POC Hgb Hct 33.8 L POC Hct MCV 88.7 MCH 29.4 MCHC 33.1 RDW Std Deviation 45.3 RDW Coeff of Shahab 14.1 Plt Count 165 MPV 12.5 H Immature Gran % (Auto) 1.1 Neut % (Auto) 88.8 Lymph % (Auto) 4.1 Brooke % (Auto) 5.8 Eos % (Auto) 0.2 Baso % (Auto) 0.0 Neut # (Auto) 10.36 H Lymph # (Auto) 0.48 L Brooke # (Auto) 0.68 H Eos # (Auto) 0.02 Baso # (Auto) 0.00 Immature Gran # (Auto) 0.13 H Sample Site POC pH POC pCO2 POC pO2 POC HCO3 POC Total CO2 POC Base Excess ABG pH (Temp Correct) ABG pCO2 (Temp Corrct POC ABG pO2 at Pt Temp POC ABG O2 Sat Humphrey Test O2 Delivery Device POC O2 Rate Minute Ventilation POC FiO2 Tidal Volume PEEP POC Sodium Sodium 140 POC Potassium Potassium 4.4 Chloride 109 H Carbon Dioxide 24 Anion Gap 7.0 BUN 71 H Creatinine 2.04 H Est Cr Clr Drug Dosing 34.6 Est GFR ( Amer) 35.9 Est GFR (Non-Af Amer) 31.0 BUN/Creatinine Ratio 35.0 H Glucose 115 H POC Glucose 100 H Calcium 7.5 L Phosphorus 4.9 Magnesium 2.7 H C-Reactive Protein Nasal Screen MRSA (PCR) Medications Administered Current Inpatient Medications Acetaminophen (Acetaminophen 325 Mg Tab) 650 mg PO Q4H PRN PRN Reason: Pain or Fever Stop: 12/29/20 19:12 Albuterol (Albut/Ipratrop 3mg/0.5mg Neb 3 Ml Vial) 3 ml NEB QIDR [facility] Stop: 12/30/20 06:59 Last Admin: 12/03/20 07:24 Dose: 3 ml Documented by: Aspirin (Aspirin 81 Mg Chew) 81 mg NG DAILY [facility] Stop: 01/02/21 08:59 Atorvastatin Calcium (Atorvastatin 20 Mg Tab) 20 mg NG HS [facility] Stop: 12/29/20 20:59 Last Admin: 12/02/20 20:23 Dose: 20 mg Documented by: Cetirizine HCl (Cetirizine Hcl 10 Mg Tablet) 10 mg PO DAILY [facility] Stop: 12/30/20 08:59 Last Admin: 12/02/20 08:19 Dose: 10 mg Documented by: Citalopram Hydrobromide (Citalopram 20 Mg Tab) 10 mg NG DAILY [facility] Stop: 12/30/20 08:59 Clopidogrel Bisulfate (Clopidogrel Bisulfate 75 Mg Tab) 75 mg PO DAILY [facility] Stop: 12/30/20 08:59 Last Admin: 12/02/20 08:19 Dose: 75 mg Documented by: Dextrose (Dextrose 50% 50 Ml Syringe) 25 - 50 ml IV UD PRN; Protocol PRN Reason: Hypoglycemia Protocol Stop: 12/29/20 19:12 Doxazosin Mesylate (Doxazosin Mesylate 1 Mg Tab) 1 mg NG DAILY [facility] Stop: 12/30/20 08:59 Enoxaparin Sodium (Enoxaparin Inj 40 Mg/0.4 Ml Syr) 40 mg SQ Q12H [facility] Stop: 12/29/20 19:59 Last Admin: 12/02/20 08:18 Dose: 40 mg Documented by: Fentanyl Citrate (Fentanyl Bolus From Bag) 50 mcg IV Q60M PRN PRN Reason: Pain or Agitation Stop: 12/16/20 14:12 Last Admin: 12/02/20 20:17 Dose: 50 mcg Documented by: Furosemide (Furosemide 20 Mg Tab) 20 mg PO DAILY [facility] Stop: 12/30/20 08:59 Last Admin: 11/30/20 08:11 Dose: 20 mg Documented by: Glucagon (Glucagon For Inj 1 Mg Vial) 1 mg SQ UD PRN; Protocol PRN Reason: Hypoglycemia Protocol Stop: 12/29/20 19:12 Glucose (Glucose 10 Tabs/Tube) 4 - 8 tabs PO UD PRN; Protocol PRN Reason: Hypoglycemia Protocol Stop: 12/29/20 19:12 Glucose (Glucose 40% Gel 15 Gm Tube) 15 - 30 gm PO UD PRN; Protocol PRN Reason: Hypoglycemia Protocol Stop: 12/29/20 19:12 Heparin Sodium (Porcine) (Heparin Sod 5,000 Unit/0.5 Ml Vial) 5,000 units SQ Q12 [facility] Stop: 01/01/21 20:59 Last Admin: 12/02/20 20:03 Dose: 5,000 units Documented by: Dexamethasone 6 mg/ Syringe 1.5 mls @ 1 mls/min IV Q24H [facility] Stop: 12/30/20 08:59 Last Admin: 12/03/20 08:03 Dose: 1 mls/min Documented by: Cisatracurium Besylate 40 mg/ (Sodium Chloride) 100 mls @ 19.83 mls/hr IV .Q5H3M [facility]; Protocol Stop: 01/01/21 14:14 Last Admin: 12/03/20 09:12 Dose: 2 mcg/kg/min, 19.8 mls/hr Documented by: Midazolam HCl (Versed) 125 mg in 250 mls @ 6 mls/hr IV .[id number] [facility]; Protocol Stop: 01/01/21 14:14 Last Titration: 12/03/20 06:49 Dose: 3 mg/hr, 6 mls/hr Documented by: Fentanyl Citrate (Fentanyl Drip) 1,250 mcg in 250 mls @ 15 mls/hr IV .[id number] [facility]; Protocol Stop: 12/16/20 14:14 Last Titration: 12/03/20 08:03 Dose: 75 mcg/hr, 15 mls/hr Documented by: Famotidine 20 mg/ Syringe 5 mls @ 2.5 mls/min IV BID [facility] Stop: 01/01/21 20:59 Last Admin: 12/02/20 20:23 Dose: 2.5 mls/min Documented by: Azithromycin 500 mg/ Dextrose 255 mls @ 125 mls/hr IV Q24H [facility] Stop: 12/09/20 16:59 Last Infusion: 12/02/20 19:13 Dose: Infused Documented by: Cefepime HCl 1,000 mg/ Syringe 10 mls @ 5 mls/min IV Q24H [facility]; Protocol Stop: 12/09/20 16:59 Insulin Aspart (Insulin Aspart 100 Units/Ml 3 Ml Pen) 0 units SC Q4 [facility]; Protocol Stop: 01/01/21 19:59 Last Admin: 12/03/20 08:02 Dose: 1 units Documented by: Isosorbide Mononitrate (Isosorbide Brooke Extended Rel 30 Mg Tabcr) 30 mg PO DAILY [facility] Stop: 12/30/20 08:59 Last Admin: 12/02/20 08:19 Dose: 30 mg Documented by: Lisinopril (Lisinopril 10 Mg Tab) 10 mg PO DAILY [facility] Stop: 12/30/20 08:59 Last Admin: 11/30/20 08:11 Dose: 10 mg Documented by: Magnesium Hydroxide (Magnesium Hydroxide Susp 30 Ml Udc) 30 ml NG Q12H PRN PRN Reason: Constipation Stop: 12/29/20 19:12 Midazolam HCl (Midazolam Bolus From Bag) 2 mg IV Q60M PRN PRN Reason: Sedation Stop: 01/01/21 14:12 Last Admin: 12/02/20 20:17 Dose: 2 mg Documented by: Miscellaneous (Carbohydrates For Hypoglycemia ) 15 - 30 gm PO UD PRN PRN Reason: Hypoglycemia Protocol Stop: 12/29/20 19:12 Miscellaneous (Icu Protocol For Hyperglycemia) 1 ea N/A QAM [facility] Stop: 12/05/20 08:59 Miscellaneous (Icu Protocol For Hyperglycemia) 1 ea N/A PRN PRN; Protocol PRN Reason: Hyperglycemia Protocol Stop: 12/04/20 10:34 Miscellaneous Information (Change Meds To Ng Admin - Consult Pharmacy) 1 ea N/A UD PRN PRN Reason: Consult Stop: 01/01/21 11:23 Miscellaneous Information (Pharmacy Glycemic Mgmt Consult) 1 ea N/A UD PRN PRN Reason: Consult Stop: 01/01/21 19:23 Nitroglycerin (Nitroglycerin Sl 0.4 Mg/Tab Tab) 0.4 mg SL UD PRN PRN Reason: Chest Pain Stop: 12/29/20 19:12 Ondansetron HCl (Ondansetron Inj 2 Mg/Ml 2 Ml Vial) 4 mg IV Q6H PRN PRN Reason: Nausea Stop: 12/29/20 19:12 Polyethylene Glycol (Polyethylene (Miralax) 17 Gm Pack) 17 gm NG DAILY PRN PRN Reason: Constipation Stop: 12/29/20 19:12 Tamsulosin HCl (Tamsulosin Hcl 0.4 Mg Cap) 0.4 mg PO DAILY [facility] Stop: 12/30/20 08:59 Last Admin: 12/02/20 08:19 Dose: 0.4 mg Documented by: Umeclidinium Jennings (Umeclidinium Jennings 62.5mcg/Blister 7 Puffs/Inhaler) 1 puffs INH DAILY [facility] Stop: 12/30/20 08:59 Last Admin: 12/02/20 08:18 Dose: 1 puffs Documented by: PG Care Time/CCT Total # of Minutes Spent Total Time Spent with Patient: Total time spent is greater than 50% in coordination of care (as documented) at patient's floor/unit and/or counseling patient: Coding Level of Care Code None Diagnoses Pneumonia due to COVID-19 virus U07.1; J12.82 Carotid artery stenosis I65.29 Prediabetes R73.03 Depression F32.9 KAT on CPAP G47.33; Z99.89 Hypercholesterolemia E78.00 HLD (hyperlipidemia) E78.5 GERD (gastroesophageal reflux disease) K21.9 BPH (benign prostatic hyperplasia) N40.0 Stage 3b chronic kidney disease N18.32 Hypoxia R09.02
[2020-12-03] MEDS ORDERED: STAT IV Infusion **Titration per Protocol STA (10:17)
--- NOTE | 2020-12-03 10:17 | Critical Care Progress Note ---
Date of Service December 03, 2020 Assessment & Plan (1) Acute hypoxemic respiratory failure: 75-year-old male with a history of coronary artery bypass grafting, peripheral vascular disease, asthma, CKD stage III and GERD presenting to the hospital due to worsening hypoxic respiratory failure thought to be secondary to COVID-19 illness. Neuro: Sedation and neuromuscular blockade -Cis atracurium day #2 Resp: Acute hypoxic respiratory failure: Likely a sequelae of COVID-19 infection. -He received tocilizumab on 11/30/2020. His CRP is trending downward. His initial symptoms began October 27. -He has worsening groundglass opacities noted on chest x-ray and CT imaging. -Continue Decadron at a dose of 6 mg daily for 10 days. -Intubation day #2. Diffuse groundglass opacities noted on CT chest: As above. Likely secondary to evolving COVID-19 illness. Volume overload may be playing a role as well. History of asthma and COPD: Continue bronchodilators. CV: Asymptomatic bradycardia Fluids/Renal: Acute kidney injury: Improving -Reviewed nephrology notes -Stage IIIb chronic kidney disease ID: Tocilizumab on November 30, 2020 -Cefepime day 2 GI/Nutrition: NG tube in place -Start trickle feed Heme: Anemia DVT prophylaxis: Heparin 5000 3 times daily Endocrine: ICU hyperglycemia protocol Vascular access: Right internal jugular IJ, right radial art line 2 peripheral IVs Code Status: Full code Disposition: Family requesting transfer to [facility]: Transfer process initiated at [id number], awaiting callback from [place]: Vivek (2) Pneumonia due to COVID-19 virus: (3) Asthma with COPD: (4) Acute kidney injury due to COVID-19: (5) Bradycardia: Admission and Anticipated Discharge Date Admission Date: November 29, 2020 Subjective Return from prone position at 9 AM requiring increased oxygen levels Will prone again after 6 hours. Review of Systems Review of Systems: Unobtainable due to endotracheal tube Physical Exam Physical Exam: General: GCS 3 TP. Skin: Warm, dry, Head: Atraumatic Ears, nose, mouth and throat: airway obscured by endotracheal tube Cardiovascular: Normal peripheral perfusion Respiratory: Ventilator settings reviewed Gastrointestinal: Hematoma: (Marked) on left lower abdomen Musculoskeletal: No deformity Results & Data Results & Data ([facility]) Vital Signs (Past 12 Hours) Vital Signs Temp Pulse Pulse Resp BP Pulse Ox 12/03/20 07:49 60 24 91 12/03/20 07:46 60 24 91 12/03/20 06:30 36.4 C L 58 L 94 12/03/20 05:07 36.4 C L 60 81/44 L 90 12/03/20 04:49 36.3 C L 58 L 85/42 L 90 12/03/20 04:00 75 128/57 L 12/03/20 03:49 36.2 C L 75 128/57 L 95 12/03/20 03:45 77 24 94 12/03/20 02:49 36.3 C L 62 119/52 L 95 12/03/20 01:49 36.1 C L 57 L 93/46 L 93 12/03/20 00:49 35.8 C L 56 L 105/46 L 95 12/03/20 00:45 56 L 12/03/20 00:00 56 L 12/02/20 23:49 35.4 C L 55 L 103/48 L 96 12/02/20 23:30 57 L 113/39 L 12/02/20 23:02 35.1 C L 53 L 86/42 L 95 12/02/20 22:49 35.0 C L 59 L 78/41 L 95 12/02/20 22:34 34.9 C L 55 L 78/40 L 95 12/02/20 22:30 54 L 24 96 12/02/20 22:19 34.9 C L 59 L 112/53 L 96 Coding Level of Care Code Critical Care ea addt'l 30 min Diagnoses Acute hypoxemic respiratory failure J96.01 Pneumonia due to COVID-19 virus U07.1; J12.82 Asthma with COPD J44.9 Acute kidney injury due to COVID-19 U07.1; N17.9 Bradycardia R00.1
[2020-12-03] MEDS ORDERED: NOREPINEPHRINE/D5W 8 MG/508 ML BAG IV SCH (10:30)
[2020-12-03] MEDS: fentaNYL DRIP 1,250 MCG/250 ML BAG IV SCH (10:54)
[2020-12-03] MEDS: CLOPIDOGREL BISULFATE 75 MG TAB PO SCH (10:54)
[2020-12-03] MEDS: HEPARIN SOD 5,000 UNIT/0.5 ML VIAL SQ SCH (10:55)
[2020-12-03] MEDS ORDERED: CEFEPIME 2,000 MG in SYRINGE 0 ML IV SCH (11:30)
[2020-12-03 11:47] LABS: iSTAT Arterial Blood Gas HCO3 25 meg/L (19-24); iSTAT Arterial Blood Gas pCO2 47 mmHg (35-46); iSTAT Arterial Blood Gas pH 7.33 (7.35-7.45); iSTAT Arterial Blood Gas pO2 77 mmHg (80-95); iSTAT Carbon Dioxide 26 mmol/L (24-31); iSTAT FiO2 60 %; iSTAT Site Art Line
[2020-12-03 12:13] LABS: Appearance Urine Cloudy (Clear); Bacteria Urine Automated Negative (Negative); Bilirubin Urine Negative (Negative); Blood Urine 3+ (Negative); Color Urine Yellow; Epithelial Cell Urine Auto 20-30 /lpf (0-5); Glucose Urine UA Negative (Negative); Ketones Urine Negative (Negative); Leukocyte Esterase Urine 1+ (Negative); Nitrite Urine Negative (Negative); Protein Urine 1+ (Negative); Urobilinogen Urine Negative (Negative)
[2020-12-03 13:07] LABS: RBC Urine Automated >30 /hpf (0-4)
--- NOTE | 2020-12-03 13:13 | Discharge Summary ---
Date of Service December 03, 2020 Admission HPI Per Admitting Provider 75-year-old male with a past medical history of coronary artery disease status post CABG x3(1999), CKD stage III, GERD, hypertension, hypercholesterolemia, aortic stenosis, KAT, PAD s/p bilateral iliac artery stenting, asthma with COPD, agent orange exposure, BPH coming to ER short of breath. recently discharged from hospital on 11/23 for KULDIP. Here today for 4-5 days of shortness of breath and worsening appetite. poor PO intake and pain with deep inhalation. had a pulse ox delivered to the house and found his O2 to be 70% at home earlier today, and thus brought him to the ER. Principal Diagnosis COVID 19 pneumonia with acute hypoxic respiratory failure Discharge Exam Constitutional well developed, well nourished and + mechanically ventilated Respiratory symmetric chest movement Auscultation: lungs clear to auscultation bilaterally Cardiovascular RRR, no murmur, no edema Gastrointestinal (Abdomen) Inspection/Auscultation: abdomen normal to inspection and normal bowel sounds Percussion/Palpation: abdomen soft Skin no rashes, warm and dry Neurologic CN's II-XI intact bilaterally and + obtunded; no focal motor deficits Discharge Data Allergies Allergy/AdvReac Type Severity Reaction Status Date / Time Penicillins Allergy Severe PER PT Verified 11/29/20 15:53 ENDED UP IN HOSPITAL Consultations 11/29/20 16:06 ED Decision to Admit Stat 11/29/20 19:13 Consult Pulmonology Routine 12/02/20 12:05 Consult Nephrology Routine 12/03/20 10:26 Consult Palliative Care Routine 12/03/20 11:55 Burn CD for patient Stat Ordered Studies 11/29/20 17:00 CT chest diagnostic wo con Stat 12/02/20 11:10 US point of care ultrasound Urgent Hospital Course (1) Pneumonia due to COVID-19 virus: 75 yo M w/ extensive vascular hx in ER for acute dyspnea and hypoxia, poor po intake, found to have worsening COVID pneumonia. recently discharged on 11/23 now is returned with declining status ,initial date of diagnosis 11/22. Had been sick for about a month and was treated with antibiotics Acute on chronic respiratory failure with hypoxia Acute hypoxic respiratory failure progressed to require intubation 12/02/20 Dr. Miller discussed with family today, they requested transfer to [facility] which he arranged he will be transferred to [facility] for continued ICU care Worsening COVID19 P[address] chest 11/29/20 Interval progression of the near diffuse ground glass airspace opacities, viral pneumonia - progressed to needing intubated and ventilated evening of 12/02/20 - dexamethasone 6mg IV daily - not candidate for remdesivir/plasma due to timing of illness, first started getting sick early October - airborne isolation precautions Tociluzimab ordered 11/30/20 will be on antibiotics to cover for possible secondary infection will need to cover for HAP, cefepime and azithromycin Superimposed hospital associated pneumonia? - concern for HAP given recent hospitalization and acute decompensation Cefepime and azithromycin IV - procal 0.08, blood cultures still pending - sputum culture sent COPD - continue spiriva daily - duonebs QID, decadron - KULDIP on CKD - last Cr in [facility] system 11/2019 was 1.30, CrCl 56.05 - did have elevation of cr with recent decline in condition - Cr improved slightly this morning to 2.04 Chronic Medical Conditions CAD: cont statin, asa PAD: cont plavix HTN: Continue holding lisinopril, lasix. cont isosorbide nitro, amlodipine patient is been without cardiac symptoms at this time BPH: Cont doxazosin, tamsulosin GERD: cont omeprazole Allergies: cont cetirizine, prn nasal steroid DVT ppx: covid heparin ppx for renal failure Full Code (2) Carotid artery stenosis: (3) Prediabetes: (4) Depression: (5) KAT on CPAP: now intubated (6) Hypercholesterolemia: (7) HLD (hyperlipidemia): (8) GERD (gastroesophageal reflux disease): (9) BPH (benign prostatic hyperplasia): (10) Stage 3b chronic kidney disease: (11) Hypoxia: Total Time Total Time Spent Total Time Spent (In Minutes): 31 Total Time Includes: Examination of the Patient, Discharge Planning, Medication Reconciliation and Communication With Other Providers Discharge Plan Discharge Items Reason For Visit: SOB Medications and DC Order Prescriptions: No Action atorvastatin 20 mg tablet 20 mg PO HS RF: 0 cetirizine 10 mg tablet 10 mg PO DAILY RF: 0 doxazosin 1 mg tablet 1 mg PO DAILY RF: 0 citalopram 10 mg tablet 10 mg PO DAILY RF: 0 clopidogrel 75 mg tablet 75 mg PO DAILY RF: 0 aspirin 81 mg tablet,delayed release (DR/EC) 81 mg PO DAILY RF: 0 isosorbide mononitrate 60 mg tablet extended release 24 hr 30 mg PO DAILY RF: 0 tamsulosin 0.4 mg capsule 0.4 mg PO DAILY RF: 0 amlodipine 10 mg tablet 10 mg PO DAILY RF: 0 lisinopril 10 mg tablet 10 mg PO DAILY RF: 0 omeprazole 20 mg capsule,delayed release(DR/EC) 20 mg PO DAILY RF: 0 furosemide 20 mg tablet 20 mg PO DAILY RF: 0 dexamethasone [Decadron] 6 mg tablet 6 mg PO DAILY Qty: 8 RF: 0 Spiriva with HandiHaler 18 mcg capsule, w/inhalation device 1 cap inhalation DAILY Qty: 30 RF: 0 azithromycin 250 mg tablet 250 mg PO DAILY RF: 0 Admission Data Admit Date/Time: 11/29/20 16:52 Attending Provider: Davis Molina Admit Provider: Maricruz Cisneros Primary Care Provider: Pallavi Rice Other Providers: Carter Shaw ; Reinier Richter ; Sarah Dorsey ; Jules Chapin ; Keyon Márquez ; Meli Eldridge ; Salas Coates ; Chey Lema Coding Level of Care Code D/C Day Management >30 mins Diagnoses Pneumonia due to COVID-19 virus U07.1; J12.82 Carotid artery stenosis I65.29 Prediabetes R73.03 Depression F32.9 KAT on CPAP G47.33; Z99.89 Hypercholesterolemia E78.00 HLD (hyperlipidemia) E78.5 GERD (gastroesophageal reflux disease) K21.9 BPH (benign prostatic hyperplasia) N40.0 Stage 3b chronic kidney disease N18.32 Hypoxia R09.02
[2020-12-03] MEDS ORDERED: HEPARIN SOD 5,000 UNIT/0.5 ML VIAL SQ SCH (14:00)
--- NOTE | 2020-12-03 14:26 | Pharmacy Report ---
Pharmacy Glycemic Short Note 2 - Date of Service December 03, 2020 - Glycemic Short BSG Results (Last 24 hours): 12/02/20 12/02/20 12/02/20 14:29 16:26 18:04 Glucose 204 H POC Glucose 144 H 240 H 12/02/20 12/02/20 12/03/20 19:38 22:01 00:28 Glucose POC Glucose 262 H 230 H 186 H 12/03/20 12/03/20 12/03/20 04:21 05:08 07:26 Glucose 115 H POC Glucose 127 H 100 H 12/03/20 11:22 Glucose POC Glucose 118 H OUTPATIENT ANTIDIABETIC REGIMEN: * a1C 6.5% 11/23/20 * n/a ASSESSMENT: * Mr. MAHMOOD is a 75 yo male with a history of CABG, peripheral vascular disease, asthma, CKD stage III, GERD presented with worsening hypoxic respiratory failure secondary to COVID 19 illness * Patient received tocilizumab on 11/30 and intubated yesterday afternoon, currently sedated with fentanyl/versed infusions and paralyzed with nimbex. Continues on dexamethasone 6 mg q24H plan for a total of 10 days. * Blood sugars increased yesterday following intubation/start of bicarb infusion in dextrose (has been discontinued) with a peak of 262 mg/dL. Patient received 23 units of lantus last PM along with the ICU subq protocol scale and trended back down overnight. BSG 100 mg/dL this morning. * Will continue subq protocol. May need additional lantus dose this evening if BSGs trend back up. * Plan for patient to be transferred to [facility] PLAN FOR INPATIENT GLYCEMIC CONTROL: * Hold outpatient oral diabetes medications * Basal insulin * Lantus 23 units SQ x1, will hold additional doses for now * Bolus insulin * NovoLog per scale ACHS or Q6hrs while NPO * Correctional Per ICU protocol weight based scale * Nutritional / Prandial insulin per carb ratio of 1 unit per 11 grams CHO consumed
[2020-12-03] MEDS ORDERED: CEFEPIME 1,000 MG in SYRINGE 0 ML IV SCH (17:00)
[2020-12-03] MEDS ORDERED: FAMOTIDINE 20 MG in SYRINGE 3 ML IV SCH (21:00)
== END 2020-12-03 14:22 | disposition short-term general hospital (02) | DRG 177 ==
LOC: ED 14:30 → 2S 16:52 → SUATTDRO 16:52 → 2S 18:36 → 1E 12-02 10:19